=== PATIENT | female | born 1995 | race Caucasian/White ===

== ENCOUNTER 2018-09-19 22:53 | Emergency (ER) | payer OTHER, SELFPAY ==
--- NOTE | 2018-09-19 23:02 | DI.RAD.S_ITS ---
PROCEDURE: XR KNEE LT 3V INDICATIONS: Pt unable to straighten left leg. TECHNIQUE: 3 views of the knee were acquired. COMPARISON: [facility], , KNEE 3V LEFT, 09/27/2016, 12:27. FINDINGS: Bones: There is a smaller lucency along the lateral aspect of the proximal fibula. Soft tissues: Mild joint effusion. No suspicious soft tissue calcifications. IMPRESSION: Small nondisplaced proximal fibular cortical lucency suspicious for fracture. Dictated by: Aubrie Salinas M.D. on 09/20/2018 at 7:56 Approved by: Aubrie Salinas M.D. on 09/20/2018 at 7:57
[2018-09-19 23:04] VITALS: BP 121/91; PULSE 107; RESP 15; TEMP 37.6; O2SAT 98; BMI 49.9
--- NOTE | 2018-09-20 00:41 | ED.LOWEXIN ---
HPI - Extremity Injury (Lower) General Chief Complaint: Extremity Injury, Lower Stated Complaint: LEFT KNEE DISLOCATION Time Seen by Provider: 09/20/18 00:34 Source: patient Mode of arrival: ambulatory Limitations: no limitations History of Present Illness HPI Narrative: This is a 22-year-old female who comes to the emergency with complaint of left knee pain. She was outside playing with her children at about 10 30 or 11 o'clock night she tripped and fell. She landed on the area of her knee felt like there was decreased on the medial side of her knee and that her patella was possibly pushed to the side. Patient states that is uncomfortable for her to completely straighten her leg it is more comfortable to keep it bent. She does not have any numbness or weakness. She was able to straighten for nursing. Patient did have any other injuries. Related Data Previous Rx's Medication Instructions Recorded methocarbamol [Robaxin-750] 750 mg PO QIDP PRN #40 tab 01/14/18 Allergies Allergy/AdvReac Type Severity Reaction Status Date / Time No Known Drug Allergies Allergy Verified 09/19/18 23:04 Review of Systems Constitutional Denies weakness Musculoskeletal Reports as per HPI, Reports abnormal gait, Reports joint swelling, Reports limited range of motion, Denies muscle weakness, Denies numbness and Denies tingling Comments: pain left knee Integumentary/Breasts Denies bleeding lesions and Denies rash Neurologic Reports abnormal gait, Denies numbness, Denies tingling and Denies weakness PFSH Social History Smoking Status: Never smoker Exam Narrative Exam Narrative: GENERAL: Alert and oriented x three, obese, well-appearing female in mild distress. HEENT: Head normocephalic, atraumatic, face symmetric, moist mucous membranes NECK: Supple, full range of motion CARDIOVASCULAR: Regular rate and rhythm without murmurs, rubs or gallops. RESPIRATORY: Breath sounds equal bilaterally, no wheezes rales or rhonchi. ABDOMEN: Soft, nontender. Normoactive bowel sounds all 4 quadrants. No guarding or rebound, rigidity, no mass EXTREMITIES: Decreased range of motion secondary to pain although patient was able to straighten her lower extremity for nursing to place in knee immobilizer. Patient has tenderness over the proximal tibia and fibula and over the fibular head. She also has tenderness of the patella itself. She has no joint laxity on testing. She has mild swelling in comparison to the right. No bruising, no erythema or other skin color changes. 2+ pulses. no clubbing or edema. Neurovascularly intact NEUROLOGICAL: Cranial nerves II through XII grossly intact. Moving all extremities SKIN: Warm, dry, no petechiae, no rashes or lesions. Initial Vital Signs Initial Vital Signs: Vital Signs Temperature 99.7 F H 09/19/18 23:04 Pulse Rate 107 H 09/19/18 23:04 Respiratory Rate 15 09/19/18 23:04 Blood Pressure 121/91 H 09/19/18 23:04 Pulse Oximetry 98 09/19/18 23:04 Course Orders Ordered: ED Orders 09/19/18 23:02 XR knee LT 3V Stat Vital Signs - 8 hr 09/19/18 23:04 09/20/18 01:25 Temperature 99.7 F H 98.7 F Pulse Rate 107 H 100 H Respiratory Rate 15 14 Blood Pressure 121/91 H 120/80 Pulse Oximetry 98 98 MDM - Extremity Injury (Lower) Imaging Data left knee xray: My impression: appears to be possible fx at proximal fibula. No other fracture noted. MDM Narrative Medical decision making narrative: Patient placed in Knee immobilizer and crutches with plan for non-weight bearing and follow up with orthopedic surgery for further evaluation and treatment. Discharge Plan Departure Patient Disposition: Home Clinical Impression: Closed fibular fracture Discharge Date/Time: 09/20/18 01:20 Interventions: ED Discharge Assessment Last Done: 09/20/18 01:25 Instructions: DI for Fracture Activity Restrictions/Additional Instructions: Call Saturday to set up a follow-up appointment with Orthopedic surgery. Your imaging shows possible small fracture of the fibula. Use crutches until your cleared by your physician. You may take ibuprofen and/or tylenol as needed for pain. Splint Care: Keep splint clean and dry. Elevated affected body part to decrease swelling. OK to use ice pack on the affected body part. Use for 15-20 minutes each time, for 5-6x per day. If you develop worsening pain, numbness, tingling, discoloration of the affected body part, loosen the splint by loosening the MAN wrap, and either see your doctor for an urgent re-assessment, or return to the Emergency Department. Return to the Emergency Department for any new or worsening symptoms. Prescriptions: No Action methocarbamol [Robaxin-750] 750 MG tablet 750 mg PO QIDP PRNQty: 40 RF: 0 Referrals: Dennis Anne MD [Primary Care Provider] - Lane Chamorro MD [Physician] -
[2018-09-20 01:25] VITALS: BP 120/80; PULSE 100; RESP 14; TEMP 37.1; O2SAT 98
== END 2018-09-20 01:20 | disposition home or self-care (01) ==
PROVIDERS: Emergency Provider Emergency Medicine; Family Provider Family Medicine; PCP Family Medicine
DX: S82.812A Torus fracture of upper end of left fibula, initial encounter for closed fracture (principal); W01.0XXA Fall on same level from slipping, tripping and stumbling without subsequent striking against object, initial encounter
CPT/HCPCS: 73562; 99282; 99283

== ENCOUNTER 2019-02-16 14:11 | Emergency (ER) | payer OTHER, SELFPAY ==
[2019-02-16 14:25] VITALS: BP 127/88; PULSE 92; RESP 14; TEMP 36.7; O2SAT 98
--- NOTE | 2019-02-16 14:29 | DI.RAD.S_ITS ---
PROCEDURE: XR HAND LT MIN 3V INDICATIONS: crush left thumb, pain radiates into left hand TECHNIQUE: 3 views of the hand(s) acquired. COMPARISON: [facility], , HAND 3V LEFT, 12/20/2014, 12:00. FINDINGS: Bones: No fractures or dislocations. Carpal bones are normally aligned. No suspicious bony lesions. Soft tissues: No suspicious soft tissue calcifications. IMPRESSION: No fracture or dislocation. Dictated by: Dutch Wise M.D. on 02/16/2019 at 15:20 Approved by: Dutch Wise M.D. on 02/16/2019 at 15:26
--- NOTE | 2019-02-16 15:08 | PC.NURSE ---
Pt reports she smashed her thumb while sitting in a office chair when she went to adjust the tilt on it. She can sort of move it but it hurts too much. I had her take her rings off on her same hand related to possible swelling. Pt was able to do that. placed ice on the thumb.
[2019-02-16 16:06] VITALS: BP 138/83; PULSE 89; RESP 18; O2SAT 98
--- NOTE | 2019-02-17 07:07 | ED.UPPEXIN ---
HPI - Extremity Injury (Upper) General Chief Complaint: Extremity Injury, Upper Stated Complaint: CRUSHED LT THUMB Time Seen by Provider: 02/16/19 14:30 Source: patient Mode of arrival: ambulatory Limitations: no limitations History of Present Illness HPI narrative: 23-year-old female nonsmoker with minimal medical history presents with a chief complaint of a left thumb injury earlier today. The patient smashed her thumb in an office chair and now has some pain with minimal swelling. There is no laceration, numbness, tingling. She is otherwise well and free of complaint. MD complaint: injury to: left Onset (ago): hour(s) Other Extremity Injury: Left: fingers Other injuries: none Handedness: right Place: work Severity: mild Severity scale (1-10): 5 Relieving factors: rest Exacerbating factors: movement of extremity Context: direct blow Associated symptoms: denies other symptoms Related Data Home Medications Medication Instructions Recorded Confirmed No Known Home Medications 02/16/19 02/16/19 Allergies Allergy/AdvReac Type Severity Reaction Status Date / Time No Known Drug Allergies Allergy Verified 02/16/19 14:29 Review of Systems Constitutional Denies chills, Denies fever(s), Denies lethargy and Denies weakness Eyes Denies change in vision, Denies eye discharge, Denies irritation and Denies loss of vision ENT Ears, Nose, Mouth, and Throat: Denies change in voice, Denies neck pain and Denies sore throat Cardiovascular Denies chest pain, Denies irregular heart rhythm, Denies lightheadedness, Denies palpitations, Denies dyspnea, Denies dyspnea on exertion and Denies orthopnea Respiratory Denies cough, Denies dyspnea, Denies dyspnea on exertion and Denies wheezing Gastrointestinal Gastrointestinal: Denies abdominal pain, Denies change in bowel habits, Denies diarrhea, Denies nausea and Denies vomiting Genitourinary Denies hematuria, Denies flank pain, Denies urinary incontinence and Denies urinary urgency Musculoskeletal Reports joint swelling, Reports limited range of motion and Denies neck pain Integumentary/Breasts Denies pruritus, Denies erythema, Denies rash and Denies wounds Neurologic Denies confusion, Denies loss of vision and Denies weakness Psychiatric Denies anxiety, Denies confusion, Denies depression, Denies homicidal ideation and Denies suicidal ideation Endocrine Denies palpitations Hematologic/Lymphatic Denies easy bruising Allergic/Immunologic Denies wheezing PFSH Social History Smoking Status: Never smoker Social History Smoking Status: Never smoker Exam Narrative Exam Narrative: GEN: AOx3 and in mild distress EYES: Pupils are equal, round, and reactive to light and accommodation. Extraoccular muscles are intact bilaterally. There is no subconjunctival hemorrhage or exudate. CHEST: Lungs are clear to auscultation bilaterally and free of wheezes, rales, or rhonchi. Heart rate is regular rhythm, there are no murmurs, clicks, rubs, or gallops. There is no chest wall tenderness. ABD: Abdomen is soft and nontender. There is no guarding or rebound. Bowel sounds are normal in all 4 quadrants. There is no mass or organomegaly. EXT: Full, but painful ROM of L thumb. No obvious deformity. No numbness, tingling, or weakness. SKIN: Warm, pink, and dry. No erythema or rash Initial Vital Signs Initial Vital Signs: Vital Signs Temperature 98.1 F 02/16/19 14:25 Pulse Rate 92 H 02/16/19 14:25 Respiratory Rate 14 02/16/19 14:25 Blood Pressure 127/88 02/16/19 14:25 Pulse Oximetry 98 02/16/19 14:25 Procedures Orthopedic Splinting/Casting Injury #1: Side: left Upper Extremity Injury Location: finger Upper Extremity Immobilizer: thumb spica Post splinting neuro exam: intact Post splinting vascular exam: intact Placed by: Nursing MDM - Extremity Injury (Upper) Imaging Data Thumb Xray: Radiologist's impression: [address] [address] XRay Report Signed Patient: Jennifer Booker KMR#: [id number] : 1995Acct:[id number] Age/Sex: 23 / FDate of Service: 02/16/19 Loc: ED Accession Number: [id number] Procedure: XR hand LT min 3V Ordering Provider: Bahman Das D.O. PROCEDURE: XR HAND LT MIN 3V INDICATIONS: crush left thumb, pain radiates into left hand TECHNIQUE: 3 views of the hand(s) acquired. COMPARISON: [facility], , HAND 3V LEFT, 12/20/2014, 12:00. FINDINGS: Bones: No fractures or dislocations. Carpal bones are normally aligned. No suspicious bony lesions. Soft tissues: No suspicious soft tissue calcifications. IMPRESSION: No fracture or dislocation. Dictated by: Dutch Wise M.D. on 02/16/2019 at 15:20 Approved by: Dutch Wise M.D. on 02/16/2019 at 15:26 Discharge Plan Departure Patient Disposition: Home Clinical Impression: Contusion of left thumb Qualifiers: Encounter type: initial encounter Damage to nail status: without damage Qualified Code(s): S60.012A - Contusion of left thumb without damage to nail, initial encounter Discharge Date/Time: 02/16/19 16:08 Interventions: ED Discharge Assessment Last Done: 02/16/19 16:06 Instructions: DI for Contusion Activity Restrictions/Additional Instructions: *You have been diagnosed with [contusion of left thumb ] *What to do: *Take medications as directed *Follow up with your primary care provider in 2-3 days, call for an appointment. Let them know you were seen in the Emergency Department and that we ask that you be seen in follow up *Return to ER if you should have any new, worsening or concerning symptoms Prescriptions: No Action No Known Home Medications RF: 0 Referrals: Dennis Anne MD [Primary Care Provider] -
--- NOTE | 2019-02-17 07:11 | ED_ITS ---
HPI - Extremity Injury (Upper) General Chief Complaint: Extremity Injury, Upper Stated Complaint: CRUSHED LT THUMB Time Seen by Provider: 02/16/19 14:30 Source: patient Mode of arrival: ambulatory Limitations: no limitations History of Present Illness HPI narrative: 23-year-old female nonsmoker with minimal medical history presents with a chief complaint of a left thumb injury earlier today. The patient smashed her thumb in an office chair and now has some pain with minimal swelling. There is no laceration, numbness, tingling. She is otherwise well and free of complaint. MD complaint: injury to: left Onset (ago): hour(s) Other Extremity Injury: Left: fingers Other injuries: none Handedness: right Place: work Severity: mild Severity scale (1-10): 5 Relieving factors: rest Exacerbating factors: movement of extremity Context: direct blow Associated symptoms: denies other symptoms Related Data Home Medications Medication Instructions Recorded Confirmed No Known Home Medications 02/16/19 02/16/19 Allergies Allergy/AdvReac Type Severity Reaction Status Date / Time No Known Drug Allergies Allergy Verified 02/16/19 14:29 Review of Systems Constitutional Denies chills, Denies fever(s), Denies lethargy and Denies weakness Eyes Denies change in vision, Denies eye discharge, Denies irritation and Denies loss of vision ENT Ears, Nose, Mouth, and Throat: Denies change in voice, Denies neck pain and Den ies sore throat Cardiovascular Denies chest pain, Denies irregular heart rhythm, Denies lightheadedness, Denies palpitations, Denies dyspnea, Denies dyspnea on exertion and Denies orthopnea Respiratory Denies cough, Denies dyspnea, Denies dyspnea on exertion and Denies wheezing Gastrointestinal Gastrointestinal: Denies abdominal pain, Denies change in bowel habits, Denies diarrhea, Denies nausea and Denies vomiting Genitourinary Denies hematuria, Denies flank pain, Denies urinary incontinence and Denies urinary urgency Musculoskeletal Reports joint swelling, Reports limited range of motion and Denies neck pain Integumentary/Breasts Denies pruritus, Denies erythema, Denies rash and Denies wounds Neurologic Denies confusion, Denies loss of vision and Denies weakness Psychiatric Denies anxiety, Denies confusion, Denies depression, Denies homicidal ideation and Denies suicidal ideation Endocrine Denies palpitations Hematologic/Lymphatic Denies easy bruising Allergic/Immunologic Denies wheezing PFSH Social History Smoking Status: Never smoker Social History Smoking Status: Never smoker Exam Narrative Exam Narrative: GEN: AOx3 and in mild distress EYES: Pupils are equal, round, and reactive to light and accommodation. Extraoccular muscles are intact bilaterally. There is no subconjunctival hemorrhage or exudate. CHEST: Lungs are clear to auscultation bilaterally and free of wheezes, rales, or rhonchi. Heart rate is regular rhythm, there are no murmurs, clicks, rubs, or gallops. There is no chest wall tenderness. ABD: Abdomen is soft and nontender. There is no guarding or rebound. Bowel soun ds are normal in all 4 quadrants. There is no mass or organomegaly. EXT: Full, but painful ROM of L thumb. No obvious deformity. No numbness, tingling, or weakness. SKIN: Warm, pink, and dry. No erythema or rash Initial Vital Signs Initial Vital Signs: Vital Signs Temperature 98.1 F 02/16/19 14:25 Pulse Rate 92 H 02/16/19 14:25 Respiratory Rate 14 02/16/19 14:25 Blood Pressure 127/88 02/16/19 14:25 Pulse Oximetry 98 02/16/19 14:25 Procedures Orthopedic Splinting/Casting Injury #1: Side: left Upper Extremity Injury Location: finger Upper Extremity Immobilizer: thumb spica Post splinting neuro exam: intact Post splinting vascular exam: intact Placed by: Nursing MDM - Extremity Injury (Upper) Imaging Data Thumb Xray: Radiologist's impression: [address] [address] XRay Report Signed Patient: Jennifer Booker KMR#: [id number] : 1995Acct:[id number] Age/Sex: 23 / FDate of Service: 02/16/19 Loc: ED Accession Number: [id number] Procedure: XR hand LT min 3V Ordering Provider: Bahman Das D.O. PROCEDURE: XR HAND LT MIN 3V INDICATIONS: crush left thumb, pain radiates into left hand TECHNIQUE: 3 views of the hand(s) acquired. COMPARISON: [facility], , HAND 3V LEFT, 12/20/2014, 12:00. FINDINGS: Bones: No fractures or dislocations. Carpal bones are normally aligned. No suspicious bony lesions. Soft tissues: No suspicious soft tissue calcifications. IMPRESSION: No fracture or dislocation. Dictated by: Dutch Wise M.D. on 02/16/2019 at 15:20 Approved by: Dutch Wise M.D. on 02/16/2019 at 15:26 Discharge Plan Departure Patient Disposition: Home Clinical Impression: Contusion of left thumb Qualifiers: Encounter type: initial encounter Damage to nail status: without damage Qualified Code(s): S60.012A - Contusion of left thumb without damage to nail, initial encounter Discharge Date/Time: 02/16/19 16:08 Interventions: ED Discharge Assessment Last Done: 02/16/19 16:06 Instructions: DI for Contusion Activity Restrictions/Additional Instructions: *You have been diagnosed with [contusion of left thumb ] *What to do: *Take medications as directed *Follow up with your primary care provider in 2-3 days, call for an appointment. Let them know you were seen in the Emergency Department and that we ask that you be seen in follow up *Return to ER if you should have any new, worsening or concerning symptoms Prescriptions: No Action No Known Home Medications RF: 0 Referrals: Dennis Anne MD [Primary Care Provider] -
== END 2019-02-16 16:08 | disposition home or self-care (01) ==
PROVIDERS: Emergency Provider Emergency Medicine; Family Provider Family Medicine; PCP Family Medicine
DX: S60.012A Contusion of left thumb without damage to nail, initial encounter (principal); W23.0XXA Caught, crushed, jammed, or pinched between moving objects, initial encounter
CPT/HCPCS: 73130; 99282; 99283

== ENCOUNTER 2019-09-09 21:00 | Emergency (ER) | payer OTHER, SELFPAY ==
[2019-09-09 21:05] VITALS: BP 125/74; PULSE 100; RESP 14; TEMP 36.4; O2SAT 99; BMI 47.9
--- NOTE | 2019-09-09 21:09 | DI.RAD.S_ITS ---
PROCEDURE: XR ANKLE LT MIN 3V INDICATIONS: left ankle injury TECHNIQUE: 3 views of the ankle were acquired. COMPARISON: None. FINDINGS: Bones: No fractures or dislocations. Ankle mortise is normally aligned. No suspicious bony lesions. Soft tissues: No tibiotalar joint effusion. Achilles tendon appears normal. IMPRESSION: No acute fracture. No osseous lesion. If clinical suspicion and/or symptoms persist, further assessment with repeat plainfilms, or advanced imaging (e.g., CT, MRI, or bone scan) may be helpful for further assessment. Dictated by: Zulay Nye M.D. on 09/09/2019 at 21:35 Approved by: Zulay Nye M.D. on 09/09/2019 at 21:35
--- NOTE | 2019-09-09 23:34 | ED.LOWEXIN ---
HPI - Extremity Injury (Lower) General Chief Complaint: Extremity Injury, Lower Stated Complaint: LEFT ANKLE INJURY Time Seen by Provider: 09/09/19 23:33 Source: patient Mode of arrival: Ambulatory Limitations: no limitations History of Present Illness HPI Narrative: 23-year-old female comes to the emergency department with complaint of left ankle injury. Patient states she was at the pool about 830 this evening she was jumping to dive off a diving board and the diving board with set a little bit differently and so her ankle rolled. She describes what sounds like eversion of her ankle. She has pain sort of in the back and along the lateral side of the ankle and around. She states it was worse initially. She had tingling that lasted for short period of time and has resolved. She denies any weakness. She is able to walk but it is uncomfortable. Patient denies any bruising. She states seems a little bit more swollen on the inside to her. She denies any other past medical issues. No allergies to medications. Related Data Home Medications Medication Instructions Recorded Confirmed No Known Home Medications 02/16/19 02/16/19 Allergies Allergy/AdvReac Type Severity Reaction Status Date / Time No Known Drug Allergies Allergy Verified 09/09/19 21:09 Review of Systems Review of Systems ROS Unobtainable: All systems reviewed & are unremarkable except as noted in HPI and below Musculoskeletal Musculoskeletal: Reports as per HPI, Reports abnormal gait, Denies deformity, Reports arthralgias, Reports joint swelling, Reports limited range of motion, Denies muscle weakness, Denies numbness, Reports stiffness and Reports tingling (Resolved) Integumentary/Breasts Skin/Breast: Denies erythema, Denies rash and Denies unusual bruising Neurologic Neurologic: Reports abnormal gait, Denies focal weakness, Denies numbness, Denies sensory deficit and Reports tingling (Resolved) [facility] Social History Smoking Status: Never smoker Social History Smoking Status: Never smoker Exam Narrative Exam Narrative: GENERAL: Alert and oriented x three, obese female in mild distress. HEENT: Head normocephalic, atraumatic, EOMI, pupils reactive, face symmetric, moist mucous membranes NECK: Supple, full range of motion EXTREMITIES: Normal range of motion, no clubbing or edema appreciated. Patient has mild tenderness of the lateral malleolus. She does not have any swelling appreciable to myself. No ecchymosis. Neurovascularly intact. dorsalis pedis is 2+ bilateral lower extremities are warm. On joint testing a patient does not have any laxity. She has some mild tenderness the Achilles tendon as well as over the lateral tendons. No weakness. 5/5 muscle flank with dorsiflexion and plantar flexion. When taken through passive dorsiflexion and plantar flexion she has increased discomfort over the anterior ankle. NEUROLOGICAL: Cranial nerves II through XII grossly intact. Moving all extremities SKIN: Warm, dry, no petechiae, no rashes or lesions. Initial Vital Signs Initial Vital Signs: Vital Signs Temperature 97.6 F 09/09/19 21:05 Pulse Rate 100 H 09/09/19 21:05 Respiratory Rate 14 09/09/19 21:05 Blood Pressure 125/74 09/09/19 21:05 Pulse Oximetry 99 09/09/19 21:05 Course Orders Ordered: ED Orders 09/09/19 21:09 XR ankle LT min 3V Stat Vital Signs Vital signs: Vital Signs - 8 hr 09/09/19 21:05 Temperature 97.6 F Pulse Rate 100 H Respiratory Rate 14 Blood Pressure 125/74 Pulse Oximetry 99 MDM - Extremity Injury (Lower) Imaging Data left ankle xray: Radiologist's impression: [address] [address] XRay Report Signed Patient: Jennifer Booker KMR#: [id number] : 1995Acct:[id number] Age/Sex: 23 / FDate of Service: 09/09/19 Loc: ED Accession Number: [id number] Procedure: XR ankle LT min 3V Ordering Provider: Hemalatha Lake D.O. PROCEDURE: XR ANKLE LT MIN 3V INDICATIONS: left ankle injury TECHNIQUE: 3 views of the ankle were acquired. COMPARISON: None. FINDINGS: Bones: No fractures or dislocations. Ankle mortise is normally aligned. No suspicious bony lesions. Soft tissues: No tibiotalar joint effusion. Achilles tendon appears normal. IMPRESSION: No acute fracture. No osseous lesion. If clinical suspicion and/or symptoms persist, further assessment with repeat plainfilms, or advanced imaging (e.g., CT, MRI, or bone scan) may be helpful for further assessment. Dictated by: Zulay Nye M.D. on 09/09/2019 at 21:35 Approved by: Zulay Nye M.D. on 09/09/2019 at 21:35 [facility] Narrative Medical decision making narrative: Discussed with patient suspect ankle sprain. She may possibly have a sprain or strain of her Achilles tendon. She does not seem to have a tear on exam. Patient's tendon seems to be fully intact and she has no weakness. She has only very mildly tender. Plan for walking boot and patient to follow up if she is completely asymptomatic she can stop it if she continues to have symptoms she needs to follow up for evaluation. We discussed to avoid activities that cause injury to the tendon is there is some suspicion for possible injury. Patient is comfortable with the plan and expresses understanding. Discharge Plan Departure Patient Disposition: Home Clinical Impression: Left ankle sprain Discharge Date/Time: 09/10/19 00:06 Instructions: DI for Ankle Sprain Activity Restrictions/Additional Instructions: Follow-up with primary care in the next 7-10 days if your symptoms have not resolved or few continuing to have pain in your Achilles tendon. You may take ibuprofen up to 800 mg every 8 hours as needed for pain, you may also take up to a 1000 mg every 8 hours as needed for pain.\ If your totally asymptomatic you may stop using the walking boot. If he continued to have symptoms continue using the boot. I would avoid strenuous physical activity activities the force your foot into a dorsiflexion (push your toes towards your mohan) Splint Care: Keep splint clean and dry. Elevated affected body part to decrease swelling. OK to use ice pack on the affected body part. Use for 15-20 minutes each time, for 5-6x per day. If you develop worsening pain, numbness, tingling, discoloration of the affected body part, loosen the splint by loosening the MAN wrap, and either see your doctor for an urgent re-assessment, or return to the Emergency Department. Return to the Emergency Department for any new or worsening symptoms. Prescriptions: No Action No Known Home Medications RF: 0
== END 2019-09-10 00:06 | disposition home or self-care (01) ==
PROVIDERS: Emergency Provider Emergency Medicine
DX: S93.402A Sprain of unspecified ligament of left ankle, initial encounter (principal); Y93.12 Activity, springboard and platform diving
CPT/HCPCS: 29580; 73610; 99282; 99283

== ENCOUNTER 2020-01-30 11:11 | Emergency (ER) | payer OTHER, SELFPAY ==
--- NOTE | 2020-01-30 11:20 | DI.RAD.S_ITS ---
PROCEDURE: XR HAND RT MIN 3V INDICATIONS: pain status post fall TECHNIQUE: 3 views of the hand(s) acquired. COMPARISON: [facility], CR, XR WRIST RT MIN 3V, 01/30/2020, 12:07. [facility], CR, XR HAND LT MIN 3V, 02/16/2019, 14:36. FINDINGS: Bones: No fractures or dislocations. Carpal bones are normally aligned. No suspicious bony lesions. Soft tissues: No suspicious soft tissue calcifications. IMPRESSION: 1. No fracture or dislocation. Dictated by: Lane Min M.D. on 01/30/2020 at 11:37 Approved by: Lane Min M.D. on 01/30/2020 at 11:38
--- NOTE | 2020-01-30 11:20 | DI.RAD.S_ITS ---
PROCEDURE: XR WRIST RT MIN 3V INDICATIONS: pain status post fall TECHNIQUE: 4 views of the wrist were acquired. COMPARISON: [facility], , WRIST MINIMUM 3 VIEWS RIGHT, 04/23/2016, 16:12. FINDINGS: Bones: No fractures or dislocations. No suspicious bony lesions. Scaphoid view: The scaphoid appears intact. Soft tissues: No suspicious soft tissue calcifications. IMPRESSION: 1. No fracture or dislocation. Dictated by: Lane Min M.D. on 01/30/2020 at 11:34 Approved by: Lane Min M.D. on 01/30/2020 at 11:37
[2020-01-30 11:21] VITALS: BP 129/84; PULSE 72; RESP 16; TEMP 36.2; O2SAT 99; BMI 47.9
--- NOTE | 2020-01-30 11:25 | ED_ITS ---
HPI - Extremity Injury (Upper) <LUIS Hickey - Last Filed: 01/30/20 13:40> General Chief Complaint: Extremity Injury, Upper Stated Complaint: right hand pain Time Seen by Provider: 01/30/20 11:16 Source: patient Mode of arrival: Ambulatory Limitations: no limitations History of Present Illness HPI narrative: The patient is a 24-year-old female nonsmoker presenting with and for chief complaint of right hand and wrist pain after a fall last night. She had a FOOSH injury while playing basketball. She states she has history of bilateral arm fractures. She states she can't move her hands and her wrists, though it is painful. She has tried ibuprofen, as well as ice. She is concerned about fracture. Related Data Home Medications Medication Instructions Recorded Confirmed No Known Home Medications 02/16/19 02/16/19 Allergies Allergy/AdvReac Type Severity Reaction Status Date / Time No Known Drug Allergies Allergy Verified 09/09/19 21:09 Review of Systems <LUIS Hickey - Last Filed: 01/30/20 13:40> Review of Systems Narrative: GENERAL: Denies chills, fatigue, malaise, fever, sweats. HEENT: Denies sinus pain, ear pain, sore throat, difficulty swallowing, dizziness. RESPIRATORY: Denies dyspnea, cough, wheezing, hemoptysis, sputum. CARDIOVASCULAR: Denies chest pain, palpitations, orthopnea, edema, GASTROINTESTINAL: Denies nausea, vomiting, abdominal pain, diarrhea, constipation, melena. : Denies dysuria, frequency, incontinence, hematuria, urinary retention. MUSCULOSKELETAL: See HPI SKIN: Denies rash, skin lesions, or other NEUROLOGIC: Denies weakness, headache, numbness, change in speech, confusion, seizures, incoordination. PSYCHIATRIC: No concerning psychosocial issues. 12 point review of systems is negative except for those stated above Patient History <LUIS Hickey - Last Filed: 01/30/20 13:40> Social History Smoking Status: Never smoker Smoking Status: Never smoker alcohol intake frequency: 0-2 drinks per day Substance Use Type: does not use Exam <LUIS Hickey - Last Filed: 01/30/20 13:40> Narrative Exam Narrative: GENERAL: Obese female no acute distress HEAD: Atraumatic. Normocephalic. No temporal or scalp tenderness. EYES: Pupils equal round and reactive. Extraocular motions intact. No scleral icterus. No injection or drainage. ENT: Nose without bleeding, purulent drainage or septal hematoma. Throat without erythema, tonsillar hypertrophy or exudate. Uvula midline. Airway patent. NECK: Trachea midline. No JVD or lymphadenopathy. Supple, nontender, no meningeal signs. CARDIOVASCULAR: Regular rate and rhythm RESPIRATORY: No cough. No increased respiratory effort. No accessory muscle use. EXTREMITIES: General pain to palpation right wrist and hand. No snuffbox pain to palpation. Cap refill less than 2 fingers all fingers right hand. Pain to palpation right thumb. Positive radial pulse right pain. Able to pronate and supinate right hand. BACK: Nontender without deformity or crepitance. No flank tenderness. NEURO: AOx3. SKIN: No rash or erythema on visible skin Initial Vital Signs Initial Vital Signs: Vital Signs Temperature 97.2 F L 01/30/20 11:21 Pulse Rate 72 01/30/20 11:21 Respiratory Rate 16 01/30/20 11:21 Blood Pressure 129/84 01/30/20 11:21 Pulse Oximetry 99 01/30/20 11:21 <Bahman Das DO - Last Filed: 01/30/20 18:45> Initial Vital Signs Initial Vital Signs: Vital Signs Temperature 97.2 F L 01/30/20 11:21 Pulse Rate 72 01/30/20 11:21 Respiratory Rate 16 01/30/20 11:21 Blood Pressure 129/84 01/30/20 11:21 Pulse Oximetry 99 01/30/20 11:21 Procedures <LUIS Hickey - Last Filed: 01/30/20 13:40> Orthopedic Splinting/Casting Injury #1: Side: right Upper Extremity Injury Location: wrist Upper Extremity Immobilizer: wrist splint Post splinting neuro exam: intact Post splinting vascular exam: intact Placed by: Nursing Scores <LUIS Hickey - Last Filed: 01/30/20 13:40> GCS Edwin coma scale eye opening: Spontaneous Edwin coma scale verbal response: Orientated [place] coma scale motor response: Obey commands Edwin coma scale total score: 15 Course <LUIS Hickey - Last Filed: 01/30/20 13:40> Orders Ordered: ED Orders 01/30/20 11:20 XR hand RT min 3V Stat XR wrist RT min 3V Stat Discontinued Medications Ibuprofen (Advil) 800 mg PO NOW ONE Stop: 01/30/20 11:51 Last Admin: 01/30/20 11:54 Dose: 800 mg Documented by: MELISSA Vital Signs Vital signs: Vital Signs - 8 hr 01/30/20 11:21 01/30/20 13:13 Temperature 97.2 F L Pulse Rate 72 68 Respiratory Rate 16 16 Blood Pressure 129/84 Blood Pressure [Left Arm] 125/64 Pulse Oximetry 99 99 <Bahman Das DO - Last Filed: 01/30/20 18:45> Orders Ordered: ED Orders 01/30/20 11:20 XR hand RT min 3V Stat XR wrist RT min 3V Stat Discontinued Medications Ibuprofen (Advil) 800 mg PO NOW ONE Stop: 01/30/20 11:51 Last Admin: 01/30/20 11:54 Dose: 800 mg Documented by: MELISSA Vital Signs Vital signs: Vital Signs - 8 hr 01/30/20 11:21 01/30/20 13:13 Temperature 97.2 F L Pulse Rate 72 68 Respiratory Rate 16 16 Blood Pressure 129/84 Blood Pressure [Left Arm] 125/64 Pulse Oximetry 99 99 MDM - Extremity Injury (Upper) <LUIS Hickey - Last Filed: 01/30/20 13:40> Imaging Data Extremity x-ray #1: Radiologist's Impression: [address] [place] [id number] XRay Report Signed Patient: Jennifer Booker KMR#: [id number] : 1995Acct:[id number] Age/Sex: 24 / FDate of Service: 01/30/20 Loc: ED Accession Number: [id number] Procedure: XR wrist RT min 3V Ordering Provider: Hemalatha Leonard PROCEDURE: XR WRIST RT MIN 3V INDICATIONS: pain status post fall TECHNIQUE: 4 views of the wrist were acquired. COMPARISON: [facility] WRIST MINIMUM 3 VIEWS RIGHT, 04/23/2016, 16:12. FINDINGS: Bones: No fractures or dislocations. No suspicious bony lesions. Scaphoid view: The scaphoid appears intact. Soft tissues: No suspicious soft tissue calcifications. IMPRESSION: 1. No fracture or dislocation. Dictated by: Lane Min M.D. on 01/30/2020 at 11:34 Approved by: Lane Min M.D. on 01/30/2020 at 11:37 Extremity x-ray #2: Radiologist's Impression: [address] [place] [address] XRay Report Signed Patient: Jennifer Booker KMR#: [id number] : 1995Acct:[id number] Age/Sex: 24 / FDate of Service: 01/30/20 Loc: ED Accession Number: [id number] Procedure: XR hand RT min 3V Ordering Provider: Hemalatha Leonard PROCEDURE: XR HAND RT MIN 3V INDICATIONS: pain status post fall TECHNIQUE: 3 views of the hand(s) acquired. COMPARISON: [facility], CR, XR WRIST RT MIN 3V, 01/30/2020, 12:07. [facility], CR, XR HAND LT MIN 3V, 02/16/2019, 14:36. FINDINGS: Bones: No fractures or dislocations. Carpal bones are normally aligned. No suspicious bony lesions. Soft tissues: No suspicious soft tissue calcifications. IMPRESSION: 1. No fracture or dislocation. Dictated by: Lane Min M.D. on 01/30/2020 at 11:37 Approved by: Lane Min M.D. on 01/30/2020 at 11:38 [facility] Narrative Medical decision making narrative: The patient is a 24-year-old female who presents with a chief complaint of right hand and wrist pain after a fall. Patient is neurovascularly intact in the emergency department. X-rays are negative. She is placed in a support brace for comfort. I discussed at length rest ice compression elevation as well as [id number] pain medication as needed and able. Discussed come back to the emergency department for any acute concerns. Encourage PCP follow-up in the next few days. Patient is at risk for UCL ligament sprain given her exam and mechanism of injury. Patient has no questions or concerns upon discharge and states understanding of return precautions as well as follow-up care. Discharge Plan Departure Patient Disposition: Home Clinical Impression: Sprain and strain of wrist, Hand pain, right, Fall from ground level Sprain of ulnar collateral ligament of metacarpophalangeal (MCP) joint of right thumb Qualifiers: Encounter type: initial encounter Qualified Code(s): S63.641A - Sprain of metacarpophalangeal joint of right thumb, initial encounter Discharge Date/Time: 01/30/20 13:33 Instructions: DI for Wrist Sprain, How To Perform RICE (Rest, Ice, Compress, Elevate), DI for Ulnar Collateral Ligament Sprain of Thumb, DI for Hand Pain Activity Restrictions/Additional Instructions: As I discussed, your x-ray shows no acute fracture. This does not rule out a soft tissue injury such as a ligament or tendon injury. It is important that you follow up with primary care provider, especially if worsening or no improvement. There can be fractures that did not show up on initial x-ray. Please follow-up with primary care provider in the next few days. Please use rest ice compression elevation as well as [id number] pain medications as needed and able. Prescriptions: No Action No Known Home Medications RF: 0
[2020-01-30] MEDS: IBUPROFEN 400 MG TABLET 800 MG PO (11:54)
[2020-01-30 13:13] VITALS: BP 125/64; PULSE 68; RESP 16; O2SAT 99
== END 2020-01-30 13:33 | disposition home or self-care (01) ==
PROVIDERS: Emergency Provider Nurse Practitioner Family
DX: S63.501A Unspecified sprain of right wrist, initial encounter (principal); S66.911A Strain of unspecified muscle, fascia and tendon at wrist and hand level, right hand, initial encounter; S63.641A Sprain of metacarpophalangeal joint of right thumb, initial encounter; W18.30XA Fall on same level, unspecified, initial encounter
CPT/HCPCS: 73110; 73130; 99283; 99284

== ENCOUNTER → 2020-08-17 15:02 | Outpatient (CLI) | payer OTHER, SELFPAY ==
--- NOTE | 2020-08-17 15:05 | DI.RAD.S_ITS ---
PROCEDURE: XR ANKLE RT MIN 3V INDICATIONS: MODERATE RIGHT ANKLE SPRAIN, CONTUSION LEFT KNEE TECHNIQUE: 3 views of the ankle were acquired. COMPARISON: [facility], [place], XR ANKLE LT MIN 3V, 09/09/2019, 21:12. [facility], [place], ANKLE 3 VIEWS RIGHT, 01/20/2016, 19:42. FINDINGS: Bones: No fractures or dislocations. Ankle mortise is normally aligned. No suspicious bony lesions. Soft tissues: No tibiotalar joint effusion. Achilles tendon appears normal. IMPRESSION: No fracture or subluxation seen. Dictated by: Gregory Ruiz M.D. on 08/17/2020 at 15:45 Approved by: Gregory Ruiz M.D. on 08/17/2020 at 15:46
--- NOTE | 2020-08-17 15:05 | DI.RAD.S_ITS ---
PROCEDURE: XR KNEE LT 3V INDICATIONS: MODERATE RIGHT ANKLE SPRAIN, CONTUSION LEFT KNEE TECHNIQUE: 3 views of the knee were acquired. COMPARISON: [facility], [place], XR KNEE LT 3V, 09/19/2018, 22:45. [facility], [place], KNEE 1-2 VIEWS RIGHT, 03/03/2017, 21:24. FINDINGS: Bones: No fractures or dislocations. No suspicious bony lesions. Soft tissues: No joint effusion. No suspicious soft tissue calcifications. IMPRESSION: Normal for age, source of current pain after trauma symptoms is not seen. Dictated by: rGegory Ruiz M.D. on 08/17/2020 at 15:46 Approved by: Gregory Ruiz M.D. on 08/17/2020 at 15:46
== END ==
PROVIDERS: Referring Provider Family Medicine; Visit Provider Family Medicine
DX: S80.02XA Contusion of left knee, initial encounter (principal); S93.401A Sprain of unspecified ligament of right ankle, initial encounter; X58.XXXA Exposure to other specified factors, initial encounter
CPT/HCPCS: 73562; 73610

== ENCOUNTER → 2021-02-01 12:34 | Outpatient (CLI) | payer MEDICAID, OTHER, SELFPAY ==
--- NOTE | 2021-02-01 12:39 | DI.US.S_ITS ---
PROCEDURE: US PELVIC COMPLETE INDICATIONS: Excessive and frequent menstruation TECHNIQUE: Real-time scanning was performed of the pelvic organs, with image documentation. Additional endovaginal scanning was necessary due to incomplete visualization of the adnexal and endometrial structures by transabdominal scanning. COMPARISON: None. FINDINGS: Uterus: Uterus is normal in size at 3.9 x 5.3 x 7.7 cm. The endometrium measures 4.2 mm in combined thickness. Ovaries: The right ovary measures 3.2 x 1.8 x 2.4 cm and the left measures 4.7 x 2.9 x 3.8 cm. There is a 3 x 2.4 x 2.4 cm left-sided follicular cyst. Other: No pathologic free abdominal or pelvic fluid. IMPRESSION: Normal size uterus, no fibroids seen. Normal endometrial lining thickness, note is made of a follicular cysts with average diameter less than 3 cm at the left ovary Dictated by: Gregory Ruiz M.D. on 02/01/2021 at 14:06 Approved by: Gregory Ruiz M.D. on 02/01/2021 at 14:08
== END ==
PROVIDERS: Referring Provider Family Medicine; Visit Provider Family Medicine
DX: N92.0 Excessive and frequent menstruation with regular cycle (principal); N83.02 Follicular cyst of left ovary
CPT/HCPCS: 76830; 76856

== ENCOUNTER 2021-06-12 18:51 | Emergency (ER) | payer MEDICAID, OTHER, SELFPAY ==
[2021-06-12 18:56] VITALS: BP 142/77; PULSE 89; RESP 20; TEMP 37; O2SAT 99
[2021-06-12] MEDS: DOXYCYCLINE HYCLATE 100 MG TABLET PO (21:05)
[2021-06-12 21:08] VITALS: BP 138/75; PULSE 68; RESP 20; O2SAT 99
[2021-06-12 22:15] LABS: Urine N gonorrhoeae NOT DETECTED
[2021-06-12 22:18] LABS: Urine Chlamydia DETECTED
--- NOTE | 2021-06-12 23:12 | ED.FEMALEGU ---
HPI - Female Genitourinary General Chief complaint: Urogenital-Female Stated complaint: TEST FOR CLAMYDIA Time Seen by Provider: 06/12/21 20:03 Source: patient Mode of arrival: Ambulatory History of Present Illness HPI Narrative: 25-year- nonsmoker with noncontributory medical history presents suggesting she had been contacted by sexual partner who had recently tested positive for chlamydia. She denies any fever or chills nor dysuria, frequency or urgency. She denies any vaginal bleeding, discharge or leakage of fluid. She states her last sexual encounter was a few weeks ago and she has had no other partners. She denies any abdominal, pelvic or back pain. Related Data Previous Rx's Medication Instructions Recorded doxycycline hyclate 100 mg tablet 100 mg PO BID #20 tab 06/12/21 Allergies Allergy/AdvReac Type Severity Reaction Status Date / Time No Known Drug Allergies Allergy Verified 09/09/19 21:09 Review of Systems Review of Systems Narrative: GENERAL: Denies chills, fatigue, malaise, fever, sweats. HEENT: Denies sinus pain, ear pain, sore throat, difficulty swallowing, dizziness. RESPIRATORY: Denies dyspnea, cough, wheezing, hemoptysis, sputum. CARDIOVASCULAR: Denies chest pain, palpitations, orthopnea, edema, GASTROINTESTINAL: Denies nausea, vomiting, abdominal pain, diarrhea, constipation, melena. : Denies dysuria, frequency, incontinence, hematuria, urinary retention. MUSCULOSKELETAL: denies weakness, joint pain, or bony pain SKIN: Denies rash, skin lesions, or other NEUROLOGIC: Denies weakness, headache, numbness, change in speech, confusion, seizures, incoordination. PSYCHIATRIC: No concerning psychosocial issues. 12 point review of systems is negative except for those stated above Patient History alcohol intake frequency: 0-2 drinks per day Substance Use Type: does not use Exam Narrative Exam Narrative: GEN: AOx3 and in mild distress EYES: Pupils are equal, round, and reactive to light and accommodation. Extraoccular muscles are intact bilaterally. There is no subconjunctival hemorrhage or exudate. CHEST: Lungs are clear to auscultation bilaterally and free of wheezes, rales, or rhonchi. Heart rate is regular rhythm, there are no murmurs, clicks, rubs, or gallops. There is no chest wall tenderness. ABD: Abdomen is soft and nontender. There is no guarding or rebound. Bowel sounds are normal in all 4 quadrants. There is no mass or organomegaly. EXT: Full painless ROM of all extremities with no loss of sensation or strength. SKIN: Warm, pink, and dry. No erythema or rash Initial Vital Signs Initial Vital Signs: Vital Signs Temperature 98.6 F 06/12/21 18:56 Pulse Rate 89 06/12/21 18:56 Respiratory Rate 20 06/12/21 18:56 Blood Pressure 142/77 H 06/12/21 18:56 Pulse Oximetry 99 06/12/21 18:56 Course Orders Ordered: ED Orders 06/12/21 20:37 Chlamydia Gonorrhea PCR -URINE Stat Discontinued Medications Doxycycline Hyclate (Doxycycline Hyclate 100 Mg Tablet) 100 mg PO NOW ONE Stop: 06/12/21 21:02 Last Admin: 06/12/21 21:05 Dose: 100 mg Documented by: SUZI Vital Signs Vital signs: Vital Signs - 8 hr 06/12/21 21:08 Pulse Rate 68 Respiratory Rate 20 Blood Pressure 138/75 Pulse Oximetry 99 MDM - Female Genitourinary Lab Data Labs: Lab Results 06/12/21 Range/Units 20:37 Ur Chlamydia DNA (PCR) Detected H N gonorrhoeae DNA (PCR) Not detected Point of Care Testing Test Results Negative Urine Dip Bedside Urine Glucose Negative Bedside Urine Bilirubin - Negative Bedside Urine Ketone - Negative Urine Specific Pender 1.025 Bedside Urine Occult Blood - Negative Bedside Urine pH 6 Bedside Urine Protein - Negative Bedside Urine Urobilinogen - Negative Bedside Urine Nitrite - Negative Bedside Urine Leukocytes ++ 125 Esterase Discharge Plan Departure Patient Disposition: Home Clinical Impression: Exposure to chlamydia Instructions: DI for Chlamydia Activity Restrictions/Additional Instructions: *You have been diagnosed with [chlamydia exposure] *What to do: *Please continue to take your regular medications as directed. [ ] New medication prescriptions sent to your pharmacy: [ ] [ x] New medication written as a paper prescription [ ] No new medications given * avoid sexual contact for 3 weeks. Inform any sexual partners of your exposure *Please follow up with your primary care provider in 2-3 days, call for an appointment. Let them know you were seen in the Emergency Department and that we ask that you be seen in follow up. We will electronically transmit a record of today's note if your PCP is in our system *If you do not have a primary care provider please contact the [facility] Resource line at [phone]. They will ask some questions about your medical history and help get you set up with a doctor in the community. *Return to Emergency Department if you should have any new, worsening or concerning symptoms, such as [fever greater than 101 F, shaking chills, worsening pain, persistent vomiting or other bothersome symptoms] Prescriptions: New doxycycline hyclate 100 mg tablet 100 mg PO BID Qty: 20 RF: 0
== END 2021-06-12 21:08 | disposition home or self-care (01) ==
PROVIDERS: Emergency Provider Emergency Medicine
DX: A74.9 Chlamydial infection, unspecified (principal); Z20.2 Contact with and (suspected) exposure to infections with a predominantly sexual mode of transmission
CPT/HCPCS: 81003; 81025; 87491; 87591; 99283

== ENCOUNTER 2021-07-03 16:31 | Emergency (ER) | payer MEDICAID, OTHER, SELFPAY ==
[2021-07-03 16:37] VITALS: BP 139/80; PULSE 92; RESP 16; TEMP 36.4; O2SAT 97; BMI 50.1
[2021-07-03 18:38] LABS: INR 1.1 (0.9-1.3); Prothrombin Time 12.6 SECONDS (10.1-12.7)
[2021-07-03 18:39] LABS: Add Manual Diff / Slide Review NO; Basophils Absolute Auto 100 /uL (0-100); Eosinophils Absolute Auto 200 /uL (0-450); Eosinophils Percent Auto 2.1 % (2-4); Hematocrit 36.5 % (36-46); Lymphocytes Absolute Auto 3600 /uL (1100-4500); Lymphocytes Percent Auto 34.4 % (25-40); Mean Corpuscular HGB Conc 32.9 % (30-36); Mean Corpuscular Hemoglobin 26.5 PG (26-34); Mean Corpuscular Volume 80.5 fL (80-100); Monocytes Absolute Auto 600 /uL (0-900); Neutrophils Absolute Auto 6000 /uL (1500-7000); Neutrophils Percent Auto 56.5 % (50-75); Platelet Count 361 X10^3/uL (150-400); Red Blood Cell Count 4.53 X10^6/uL (4.0-5.2); Red Cell Distribution Width 13.4 % (11.6-14.8); White Blood Cell Count 10.6 X10^3/uL (4.5-11.0)
[2021-07-03 18:43] LABS: Alanine Aminotransferase 37 IU/L (<35); Albumin 4.1 g/dL (3.5-5.0); Albumin Globulin Ratio 1.3 (1.0-2.8); Alkaline Phosphatase 52 U/L (38-126); Aspartate Aminotransferase 31 IU/L (14-36); BUN Creatinine Ratio 14.3 (6-22); Bilirubin Total 0.2 mg/dL (0.2-1.3); Blood Urea Nitrogen 11 mg/dL (7-17); Calcium 9.2 mg/dL (8.4-10.2); Carbon Dioxide 25 mmol/L (22-32); Chloride 106 mmol/L (98-107); Estimated Glomerular Filt Rate > 60.0 mL/min (>60); Globulin 3.2 g/dL (1.7-4.1); Glucose 127 mg/dL (70-100); HEMOLYSIS < 15 (0-50); Potassium 3.7 mmol/L (3.4-5.1); Sodium 141 mmol/L (137-145); Total Protein 7.3 g/dL (6.3-8.2)
--- NOTE | 2021-07-03 18:49 | ED_ITS ---
HPI - Abdominal Pain General Chief Complaint: Abdominal Pain Stated Complaint: POOPING BLOOD Time Seen by Provider: 07/03/21 18:04 Source: patient Mode of arrival: Ambulatory History of Present Illness HPI narrative: 25-year-old female nonsmoker with history of GI symptoms presents with some bright red blood on the toilet paper and in the toilet water with a bowel movement today. She denies any dizziness, weakness or lightheadedness. S he denies any dietary change. She has had no fever or chills. She denies any history of GI bleeding, constipation, hemorrhoids though that he run in the family. She is not dizzy nor weak or lightheaded. Related Data Previous Rx's Medication Instructions Recorded doxycycline hyclate 100 mg tablet 100 mg PO BID #20 tab 06/12/21 Allergies Allergy/AdvReac Type Severity Reaction Status Date / Time No Known Drug Allergies Allergy Verified 07/03/21 16:45 Review of Systems Review of Systems Narrative: GENERAL: Denies chills, fatigue, malaise, fever, sweats. HEENT: Denies sinus pain, ear pain, sore throat, difficulty swallowing, dizziness. RESPIRATORY: Denies dyspnea, cough, wheezing, hemoptysis, sputum. CARDIOVASCULAR: Denies chest pain, palpitations, orthopnea, edema, GASTROINTESTINAL: See HPI : Denies dysuria, frequency, incontinence, hematuria, urinary retention. MUSCULOSKELETAL: denies weakness, joint pain, or bony pain SKIN: Denies rash, skin lesions, or other NEUROLOGIC: Denies weakness, headache, numbness, change in speech, confusion, seizures, incoordination. PSYCHIATRIC: No concerning psychosocial issues. 12 point review of systems is negative except for those stated above Patient History Social History Smoking Status: Never smoker Smoking Status: Never smoker alcohol intake frequency: 0-2 drinks per day Substance Use Type: marijuana Exam Narrative Exam Narrative: GENERAL: [25] year old patient appears stated age. Well- developed patient, in mild distress. HEAD: Atraumatic. Normocephalic. EYES: Pupils equal round and reactive. Extraocular motions intact. No scleral icterus. No injection or drainage. ENT: Nose without bleeding, purulent drainage. Throat without erythema, tonsillar hypertrophy or exudate. Airway patent. NECK: Trachea midline. Non tender CARDIOVASCULAR: Regular rate and rhythm without murmurs, gallops, or rubs. RESPIRATORY: Clear to auscultation. Breath sounds equal bilaterally. No wheezes, rales, or rhonchi. GASTROINTESTINAL: Abdomen soft, non-tender, nondistended. RECTAL: Heme-positive exam, no fissure, hemorrhoid or gross bleeding noted. This was performed with patient's permission and a female nursing security assessor at the bedside EXTREMITIES: No edema or joint tenderness. BACK: Nontender without deformity or crepitance. No flank tenderness. NEURO: AOx3. SKIN: No rash or erythema of visible areas Initial Vital Signs Initial Vital Signs: Vital Signs Temperature 97.6 F 07/03/21 16:37 Pulse Rate 92 H 07/03/21 16:37 Respiratory Rate 16 07/03/21 16:37 Blood Pressure 139/80 07/03/21 16:37 Pulse Oximetry 97 07/03/21 16:37 Course Orders Ordered: ED Orders 07/03/21 18:25 Complete Blood Count AUTO DIFF Stat Comprehensive Metabolic Panel Stat Prothrombin Time INR Stat Vital Signs Vital signs: Vital Signs - 8 hr 07/03/21 16:37 Temperature 97.6 F Pulse Rate 92 H Respiratory Rate 16 Blood Pressure 139/80 Pulse Oximetry 97 MDM - Abdominal Pain Lab Data Result diagrams: 07/03/21 18:25 07/03/21 18:25 Labs: Lab Results 07/03/21 07/03/21 07/03/21 Range/Units 18:25 18:25 18:25 WBC 10.6 (4.5-11.0) X10^3/uL RBC 4.53 (4.0-5.2) X10^6/uL Hgb 12.0 (12.0-16.0) g/dL Hct 36.5 (36-46) % MCV 80.5 (80-100) fL MCH 26.5 (26-34) PG MCHC 32.9 (30-36) % RDW 13.4 (11.6-14.8) % Plt Count 361 (150-400) X10^3/uL Neut % (Auto) 56.5 (50-75) % Lymph % (Auto) 34.4 (25-40) % [place] % (Auto) 6.0 (3-14) % Eos % (Auto) 2.1 (2-4) % Baso % (Auto) 1.0 (0-2) % Neut # (Auto) 6000 (5364-2957) /uL Lymph # (Auto) 3600 (0534-9775) /uL [place] # (Auto) 600 (0-900) /uL Eos # (Auto) 200 (0-450) /uL Baso # (Auto) 100 (0-100) /uL PT 12.6 (10.1-12.7) SECONDS INR 1.1 (0.9-1.3) Sodium 141 (137-145) mmol/L Potassium 3.7 (3.4-5.1) mmol/L Chloride 106 (98-107) mmol/L Carbon Dioxide 25 (22-32) mmol/L BUN 11 (7-17) mg/dL Creatinine 0.77 (0.52-1.04) mg/dL Estimated GFR > 60.0 (>60) mL/min BUN/Creatinine Ratio 14.3 (6-22) Glucose 127 H (70-100) mg/dL Calcium 9.2 (8.4-10.2) mg/dL Total Bilirubin 0.2 (0.2-1.3) mg/dL AST 31 (14-36) IU/L ALT 37 H (<35) IU/L Alkaline Phosphatase 52 (38-126) U/L Total Protein 7.3 (6.3-8.2) g/dL Albumin 4.1 (3.5-5.0) g/dL Globulin 3.2 (1.7-4.1) g/dL Albumin/Globulin Ratio 1.3 (1.0-2.8) Point of care testing: Point of Care Testing Test Results Negative Urine Dip Bedside Urine Glucose Negative Bedside Urine Bilirubin - Negative Bedside Urine Ketone - Negative Urine Specific [place] 1.030 Bedside Urine Occult Blood - Negative Bedside Urine pH 6.0 Bedside Urine Protein - Negative Bedside Urine Urobilinogen - Negative Bedside Urine Nitrite - Negative Bedside Urine Leukocytes - Negative Esterase Discharge Plan Departure Patient Disposition: Home Clinical Impression: Bright red rectal bleeding Instructions: DI for Rectal Bleeding Activity Restrictions/Additional Instructions: *You have been diagnosed with [painless bright red rectal bleeding, physical exam and labs are very reassuring] *What to do: *Please continue to take your regular medications as directed. [ ] New medication prescriptions sent to your pharmacy: [ ] [ ] New medication written as a paper prescription [ x] No new medications given *Please follow up with your primary care provider in 2-3 days, call for an appointment. Let them know you were seen in the Emergency Department and that we ask that you be seen in follow up. We will electronically transmit a record of today's note if your PCP is in our system *If you do not have a primary care provider please contact the [facility] Resource line at [phone]. They will ask some questions about your medical history and help get you set up with a doctor in the community. *Return to Emergency Department if you should have any new, worsening or concerning symptoms, such as [fever greater than 101 F, shaking chills, worsening pain, persistent vomiting or other bothersome symptoms] Prescriptions: No Action doxycycline hyclate 100 mg tablet 100 mg PO BID Qty: 20 RF: 0
[2021-07-03 19:23] VITALS: BP 144/73; PULSE 91; RESP 16; O2SAT 97
== END 2021-07-03 19:24 | disposition home or self-care (01) ==
PROVIDERS: Emergency Provider Emergency Medicine
DX: K62.5 Hemorrhage of anus and rectum (principal)
CPT/HCPCS: 36415; 80053; 81003; 81025; 85025; 85610; 99282; 99283

== ENCOUNTER 2021-07-04 22:33 | Emergency (ER) | payer MEDICAID, OTHER, SELFPAY ==
[2021-07-04 22:37] VITALS: BP 162/70; PULSE 80; RESP 20; TEMP 36.9; O2SAT 97
[2021-07-04 23:08] LABS: Add Manual Diff / Slide Review NO; Basophils Absolute Auto 0 /uL (0-100); Basophils Percent Auto 0.4 % (0-2); Eosinophils Absolute Auto 300 /uL (0-450); Eosinophils Percent Auto 2.6 % (2-4); Hematocrit 36.4 % (36-46); Hemoglobin 11.8 g/dL (12.0-16.0); Lymphocytes Absolute Auto 3600 /uL (1100-4500); Lymphocytes Percent Auto 33.2 % (25-40); Mean Corpuscular HGB Conc 32.5 % (30-36); Mean Corpuscular Hemoglobin 26.2 PG (26-34); Mean Corpuscular Volume 80.5 fL (80-100); Monocytes Absolute Auto 700 /uL (0-900); Monocytes Percent Auto 6.7 % (3-14); Neutrophils Absolute Auto 6100 /uL (1500-7000); Neutrophils Percent Auto 57.1 % (50-75); Platelet Count 361 X10^3/uL (150-400); Red Blood Cell Count 4.52 X10^6/uL (4.0-5.2); Red Cell Distribution Width 13.3 % (11.6-14.8); White Blood Cell Count 10.7 X10^3/uL (4.5-11.0)
--- NOTE | 2021-07-04 23:29 | ED.GIBLEED ---
HPI - GI Bleed General Chief complaint: GI Bleed Stated complaint: bloody stool getting worse Time Seen by Provider: 07/04/21 22:44 Source: patient Mode of arrival: Ambulatory History of Present Illness HPI Narrative: Patient is a 25-year-old female who was seen here in the emergency department approximately 2 days ago for bright red blood per rectum. She had labs and exam performed and is discharged home with instructions to follow-up with her primary doctor. She returns today for continued symptoms. She states that she is also having some dark colored stools. Some nausea but no vomiting. No fevers. Does have some abdominal tenderness but seems to be associated around the times she is about to have a bowel movement. Because she now has some dark colored stools and continued bright red blood is why she came the emergency department for evaluation. Related Data Previous Rx's Medication Instructions Recorded doxycycline hyclate 100 mg tablet 100 mg PO BID #20 tab 06/12/21 Allergies Allergy/AdvReac Type Severity Reaction Status Date / Time No Known Drug Allergies Allergy Verified 07/03/21 16:45 Review of Systems Constitutional Constitutional: Reports system reviewed and no additional complaints, except as documented Cardiovascular Cardiovascular: Reports system reviewed and no additional complaints, except as documented Respiratory Respiratory: Reports system reviewed and no additional complaints, except as documented Gastrointestinal Gastrointestinal: Reports as per HPI Genitourinary Genitourinary: Reports system reviewed and no additional complaints, except as documented Musculoskeletal Musculoskeletal: Reports system reviewed and no additional complaints, except as documented Integumentary/Breasts Skin/Breast: Reports system reviewed and no additional complaints, except as documented Neurologic Neurologic: Reports system reviewed and no additional complaints, except as documented Hematologic/Lymphatic On Anticoagulants: No Allergic/Immunologic Allergic/Immunologic: Reports system reviewed and no additional complaints, except as documented Patient History Medical History Rectal bleeding Social History Smoking Status: Never smoker Smoking Status: Never smoker alcohol intake frequency: 0-2 drinks per day Substance Use Type: marijuana Exam Initial Vital Signs Initial Vital Signs: Vital Signs Temperature 98.5 F 07/04/21 22:37 Pulse Rate 80 07/04/21 22:37 Respiratory Rate 20 07/04/21 22:37 Blood Pressure 162/70 H 07/04/21 22:37 Pulse Oximetry 97 08/03/21 22:37 Const General: cooperative and healthy appearing [facility] Head: normal to inspection and normocephalic Resp Effort & Inspection: normal respiratory effort Cardio Rate: regular rate GI Inspection: normal to inspection Palpation: soft, No firm, No guarding and No tender Skin General: no rashes or lesions noted Neuro General: patient alert, patient awake and moves all extremities Extrem General: normal to inspection and capillary refill normal Psych Appearance: grossly normal and well kempt Course Orders Ordered: ED Orders 07/04/21 22:55 CBC Auto Diff [Complete Blood Count AUTO DIFF] Stat Vital Signs Vital signs: Vital Signs - 8 hr 07/04/21 22:37 Temperature 98.5 F Pulse Rate 80 Respiratory Rate 20 Blood Pressure 162/70 H Pulse Oximetry 97 MDM - GI Bleed Medical Records Attestation: I reviewed the patient's medical records. Lab Data Attestation: I reviewed the patient's lab results. Result diagrams: 07/04/21 22:55 Labs: Lab Results 07/04/21 Range/Units 22:55 WBC 10.7 (4.5-11.0) X10^3/uL RBC 4.52 (4.0-5.2) X10^6/uL Hgb 11.8 L (12.0-16.0) g/dL Hct 36.4 (36-46) % MCV 80.5 (80-100) fL MCH 26.2 (26-34) PG MCHC 32.5 (30-36) % RDW 13.3 (11.6-14.8) % Plt Count 361 (150-400) X10^3/uL Neut % (Auto) 57.1 (50-75) % Lymph % (Auto) 33.2 (25-40) % [place] % (Auto) 6.7 (3-14) % Eos % (Auto) 2.6 (2-4) % Baso % (Auto) 0.4 (0-2) % Neut # (Auto) 6100 (6982-0326) /uL Lymph # (Auto) 3600 (3406-3693) /uL [place] # (Auto) 700 (0-900) /uL Eos # (Auto) 300 (0-450) /uL Baso # (Auto) 0 (0-100) /uL MDM Narrative Medical decision making narrative: Patient's vital signs and exam here in the emergency department unremarkable. Her CBC is also unremarkable. I do not feel the need to repeat a rectal exam she just had 1 done within the past 24 hours and did not show any signs hemorrhoids. She is having bright red blood which will skew any potential Hemoccult for further detection of the dark colored stools she is having. Provided reassurance to her family at bedside. Informed them that the next step in this would be to contact her primary doctor to discuss referral to see a GI provider to discuss the indications for colonoscopy and upper endoscopy. I feel that we can hold on further workup for now. She was given return precautions and follow-up instructions. She expressed understanding agreement. Discharge Plan Departure Patient Disposition: Home Clinical Impression: Rectal bleeding Instructions: DI for Rectal Bleeding Activity Restrictions/Additional Instructions: Your blood counts today are very reassuring. I recommend that you do start a medicine called Pepcid/famotidine like we discussed. I also recommend that you contact your primary doctor to discuss the indications for a referral to see Gastroenterology to discuss a colonoscopy. Return to the emergency department for any new symptoms. Prescriptions: No Action doxycycline hyclate 100 mg tablet 100 mg PO BID Qty: 20 RF: 0
== END 2021-07-04 23:38 | disposition home or self-care (01) ==
PROVIDERS: Emergency Provider Emergency Medicine
DX: K62.5 Hemorrhage of anus and rectum (principal)
CPT/HCPCS: 36415; 85025; 99281; 99283

== ENCOUNTER 2021-09-19 15:55 | Emergency (ER) | payer MEDICAID, OTHER, SELFPAY ==
[2021-09-19 16:03] VITALS: BP 119/68; PULSE 81; RESP 16; TEMP 36.7; O2SAT 98; BMI 48.7
[2021-09-19 17:11] LABS: Alanine Aminotransferase 31 IU/L (<35); Albumin 4.2 g/dL (3.5-5.0); Albumin Globulin Ratio 1.3 (1.0-2.8); Alkaline Phosphatase 49 U/L (38-126); Aspartate Aminotransferase 29 IU/L (14-36); BUN Creatinine Ratio 16.4 (6-22); Bilirubin Total 0.3 mg/dL (0.2-1.3); Blood Urea Nitrogen 9 mg/dL (7-17); Calcium 8.9 mg/dL (8.4-10.2); Carbon Dioxide 26 mmol/L (22-32); Chloride 105 mmol/L (98-107); Estimated Glomerular Filt Rate > 60.0 mL/min (>60); Globulin 3.2 g/dL (1.7-4.1); Glucose 104 mg/dL (70-100); HEMOLYSIS 21 (0-50); Lipase 95 U/L (23-300); Potassium 3.8 mmol/L (3.4-5.1); Sodium 140 mmol/L (137-145); Total Protein 7.4 g/dL (6.3-8.2)
--- NOTE | 2021-09-19 17:16 | ED_ITS ---
HPI - General Adult General Chief complaint: Abdominal Pain Stated complaint: STOMACH PROBLEMS Time Seen by Provider: 09/19/21 16:53 Source: patient Mode of arrival: Ambulatory Limitations: no limitations History of Present Illness HPI narrative: Patient is a 25-year-old female. Has had some chronic abdominal issues in the past. Is scheduled to have a colonoscopy performed in 2 days from now. She states that last evening she had an episode of vomiting. She started to have some abdominal pain after that. Since then has had multiple bowel movements. She states that it is not diarrhea but it is somewhat loose. No fevers. Has not had any nausea vomiting since early this morning. Has tolerated oral intake. No urinary symptoms. No vaginal bleeding. She states that she gets intense cramping just prior to having the bowel movements. The pain she is having now is different than her baseline abdominal discomfort for which she is getting the colonoscopy in 2 days Related Data Home Medications Medication Instructions Recorded Confirmed No Known Home Medications 09/13/21 09/19/21 Allergies Allergy/AdvReac Type Severity Reaction Status Date / Time No Known Drug Allergies Allergy Verified 09/19/21 16:06 Review of Systems Cardiovascular Cardiovascular: Denies chest pain and Denies dyspnea Respiratory Respiratory: Denies dyspnea Gastrointestinal Gastrointestinal: Reports as per HPI Genitourinary Genitourinary: Reports system reviewed and no additional complaints, except as documented and Reports as per HPI Musculoskeletal Musculoskeletal: Reports system reviewed and no additional complaints, except as documented, Reports as per HPI and Denies back pain Integumentary/Breasts Skin/Breast: Reports system reviewed and no additional complaints, except as documented Neurologic Neurologic: Reports system reviewed and no additional complaints, except as documented Hematologic/Lymphatic On Anticoagulants: No Patient History Medical History Rectal bleeding Social History Smoking Status: Never smoker Smoking Status: Never smoker alcohol intake frequency: 0-2 drinks per day Substance Use Type: marijuana Exam Initial Vital Signs Initial Vital Signs: Vital Signs Temperature 98.1 F 09/19/21 16:03 Pulse Rate 81 09/19/21 16:03 Respiratory Rate 16 09/19/21 16:03 Blood Pressure 119/68 09/19/21 16:03 Pulse Oximetry 98 09/19/21 16:03 Const General: cooperative, healthy appearing and comfortable [facility] Head: normal to inspection Neck Neck: normal visual inspection Chest Chest: normal inspection of the chest Resp Effort & Inspection: normal respiratory effort Cardio Rate: regular rate GI Inspection: normal to inspection and non-distended Palpation: soft, No firm, No guarding and tender (Midline abdomen) Back/Spine/Pelvis Back: No CVA tenderness Skin General: no rashes or lesions noted Neuro General: patient alert, patient awake and moves all extremities Extrem General: normal to inspection and capillary refill normal Psych Appearance: grossly normal and well kempt Course Orders Ordered: ED Orders 09/19/21 16:50 Complete Blood Count AUTO DIFF Stat Comprehensive Metabolic Panel Stat Lipase Stat Vital Signs Vital signs: Vital Signs - 8 hr 09/19/21 16:03 Temperature 98.1 F Pulse Rate 81 Respiratory Rate 16 Blood Pressure 119/68 Pulse Oximetry 98 Medical Decision Making Lab Data Lab results reviewed: Yes I reviewed the patient's lab results. Result diagrams: 09/19/21 16:50 09/19/21 16:50 Labs: Lab Results 09/19/21 09/19/21 Range/Units 16:50 16:50 WBC 11.4 H (4.5-11.0) X10^3/uL RBC 4.78 (4.0-5.2) X10^6/uL Hgb 12.2 (12.0-16.0) g/dL Hct 38.0 (36-46) % MCV 79.6 L (80-100) fL MCH 25.6 L (26-34) PG MCHC 32.2 (30-36) % RDW 13.9 (11.6-14.8) % Plt Count 366 (150-400) X10^3/uL Neut % (Auto) 57.9 (50-75) % Lymph % (Auto) 33.5 (25-40) % [place] % (Auto) 5.5 (3-14) % Eos % (Auto) 1.9 L (2-4) % Baso % (Auto) 1.2 (0-2) % Neut # (Auto) 6600 (8782-6359) /uL Lymph # (Auto) 3800 (4337-5313) /uL [place] # (Auto) 600 (0-900) /uL Eos # (Auto) 200 (0-450) /uL Baso # (Auto) 100 (0-100) /uL Sodium 140 (137-145) mmol/L Potassium 3.8 (3.4-5.1) mmol/L Chloride 105 (98-107) mmol/L Carbon Dioxide 26 (22-32) mmol/L BUN 9 (7-17) mg/dL Creatinine 0.55 (0.52-1.04) mg/dL Estimated GFR > 60.0 (>60) mL/min BUN/Creatinine Ratio 16.4 (6-22) Glucose 104 H (70-100) mg/dL Calcium 8.9 (8.4-10.2) mg/dL Total Bilirubin 0.3 (0.2-1.3) mg/dL AST 29 (14-36) IU/L ALT 31 (<35) IU/L Alkaline Phosphatase 49 (38-126) U/L Total Protein 7.4 (6.3-8.2) g/dL Albumin 4.2 (3.5-5.0) g/dL Globulin 3.2 (1.7-4.1) g/dL Albumin/Globulin Ratio 1.3 (1.0-2.8) Lipase 95 (23-300) U/L Point of Care Testing Test Results Negative Urine Dip Bedside Urine Glucose Negative Bedside Urine Bilirubin - Negative Bedside Urine Ketone - Negative Urine Specific [place] 1.015 Bedside Urine Occult Blood - Negative Bedside Urine pH 7.5 Bedside Urine Protein - Negative Bedside Urine Urobilinogen - Negative Bedside Urine Nitrite - Negative Bedside Urine Leukocytes - Negative Esterase Point of care testing: Point of Care Testing Test Results Negative Urine Dip Bedside Urine Glucose Negative Bedside Urine Bilirubin - Negative Bedside Urine Ketone - Negative Urine Specific [place] 1.015 Bedside Urine Occult Blood - Negative Bedside Urine pH 7.5 Bedside Urine Protein - Negative Bedside Urine Urobilinogen - Negative Bedside Urine Nitrite - Negative Bedside Urine Leukocytes - Negative Esterase [facility] Narrative Medical decision making narrative: Patient appears well. Has a benign abdomen. Labs unremarkable. Urinalysis unremarkable. test is negative. I have low suspicion for gallbladder pathology. Low suspicion for appendicitis. I feel that we should hold on a CT scan for now given her presentation and her exam and her labs and her vital signs. Will have her keep all of her scheduled upcoming medical appointments. She was given return precautions and follow-up instructions. She expressed understanding and agreement. Discharge Plan Departure Patient Disposition: Home Clinical Impression: Abdominal pain Instructions: DI for Abdominal Pain-Adult Activity Restrictions/Additional Instructions: I recommend that you eat a bland diet for the next couple days. Keep all of your scheduled upcoming medical appointments. Contact your primary doctor for a follow-up. Return to the emergency department for any new or worsening symptoms Prescriptions: No Action No Known Home Medications RF: 0
[2021-09-19 17:20] LABS: Add Manual Diff / Slide Review NO; Basophils Absolute Auto 100 /uL (0-100); Basophils Percent Auto 1.2 % (0-2); Eosinophils Absolute Auto 200 /uL (0-450); Eosinophils Percent Auto 1.9 % (2-4); Hemoglobin 12.2 g/dL (12.0-16.0); Lymphocytes Absolute Auto 3800 /uL (1100-4500); Lymphocytes Percent Auto 33.5 % (25-40); Mean Corpuscular HGB Conc 32.2 % (30-36); Mean Corpuscular Hemoglobin 25.6 PG (26-34); Mean Corpuscular Volume 79.6 fL (80-100); Monocytes Absolute Auto 600 /uL (0-900); Monocytes Percent Auto 5.5 % (3-14); Neutrophils Absolute Auto 6600 /uL (1500-7000); Neutrophils Percent Auto 57.9 % (50-75); Platelet Count 366 X10^3/uL (150-400); Red Blood Cell Count 4.78 X10^6/uL (4.0-5.2); Red Cell Distribution Width 13.9 % (11.6-14.8); White Blood Cell Count 11.4 X10^3/uL (4.5-11.0)
[2021-09-19 17:52] VITALS: BP 119/69; PULSE 70; RESP 18; TEMP 36.8; O2SAT 100
== END 2021-09-19 17:53 | disposition home or self-care (01) ==
PROVIDERS: Emergency Provider Emergency Medicine
DX: R10.9 Unspecified abdominal pain (principal); R11.10 Vomiting, unspecified
CPT/HCPCS: 36415; 80053; 81003; 81025; 83690; 85025; 99283

== ENCOUNTER 2021-09-21 14:52 | Day surgery (SDC) | payer MEDICAID, OTHER, SELFPAY ==
[2021-09-21 15:13] VITALS: BP 126/79; PULSE 79; RESP 18; TEMP 36.6; O2SAT 98; BMI 50.1
[2021-09-21] MEDS: LACTATED RINGERS 1,000 ML 200 ML IV (15:21)
--- NOTE | 2021-09-21 15:21 | PM.PREOP ---
Pre-operative Note Interval Note History & Physical reviewed/Exam performed by Physician: Yes Changes to H&P: No
[2021-09-21] MEDS: LIDOCAINE 4% SOLN 50 ML 20 ML TOP (15:30)
[2021-09-21 15:56] VITALS: BP 111/63; PULSE 74; RESP 16; TEMP 36.8; O2SAT 98
--- NOTE | 2021-09-21 15:56 | P.OP.EGD&C_ITS ---
Operative Date/Time/Diagnoses Date of procedure: 09/21/21 Time of procedure: 15:56 Pre-op diagnosis: Blood per rectum Post-op diagnosis: same Procedure & Clinicians Study performed: Esophagoduodenoscopy colonoscopy Same procedure as scheduled: Yes Indications: Blood per rectum Surgeon: Keegan Guardado Procedure Notes Procedure in detail: Medications: Conscious sedation using 9mg IV midazolam and 200mcg IV of fentanyl The history and physical was performed/updated and the patient is ASA class is 3. The procedure was discussed in detail with the patient. Potential risks complications including infection, bleeding, missed diagnosis, perforation, need for surgery, and were explained. Their questions were answered and informed consent was obtained. Patient was brought to the procedure room and placed standard monitoring equipm ent. The patient's vital signs were monitored continuously throughout the entire procedure. Prior to starting time-out was performed. The patient was placed in the left lateral recumbent position. Procedural sedation was administered. A bite block was placed. the scope was inserted into the mouth and advanced through the esophagus and into the stomach. The pylorus was intubated and the duodenum was normal to the 2nd portion. The scope was retroflexed within the stomach and there was a small hiatal hernia. No ulcers, or gastritis. The scope was withdrawn into the esophagus the Z line was seen at 38 cm from the incisions. There was no Miner's esophagitis or masses or strictures. Stomach was desufflated and scope removed. Patient tolerated procedure well. Examination began with a thorough inspection of the perianal area there was no evidence of fissures, fistulae, external hemorrhoids or cutaneous malignancy. The colonoscopy scope was then placed into the anal canal and was advanced to the cecum, which was identified by the ileocecal valve, and the confluence of the taenia. The scope was then slowly withdrawn examining colon thoroughly in all directions, irrigating it of any residual stool. FINDINGS 1. Normal esphoagus, stomach and colon 2. No masses polyps 3. No blood was seen within the GI tract. The patient tolerated the procedure well. They will be discharged once criteria are met. The prep was of good/excellent quality. The withdrawl time was * minutes. The sedation time was * minutes. Specimen(s): none sent Complications: none Impression: normal colonoscopy and esophagoduodenoscopy Post-procedure Plan for aftercare: follow up as needed Disposition: same day surgery
[2021-09-21] MEDS: fentaNYL 250 MCG/5 ML INJ IV (15:58)
[2021-09-21] MEDS: MIDAZOLAM 5 MG/5 ML VIAL IV (15:58)
[2021-09-21 16:04] VITALS: BP 113/61; PULSE 71; RESP 16; O2SAT 97
[2021-09-21 16:09] VITALS: BP 106/61; PULSE 70; RESP 16; O2SAT 97
[2021-09-21 16:14] VITALS: BP 111/63; PULSE 64; RESP 16; O2SAT 98
[2021-09-21 16:18] VITALS: BP 117/66; PULSE 70; RESP 18; TEMP 36.8; O2SAT 95
== END 2021-09-21 16:39 | disposition home or self-care (01) ==
PROVIDERS: PCP Internal Medicine; Referring Provider Surgery; Visit Provider Surgery
PROC: 0DJ08ZZ Inspection of Upper Intestinal Tract, Via Natural or Artificial Opening Endoscopic (ICD-10-PCS; CPT 43235; principal; 2021-09-21 16:00)
PROC: 0DJD8ZZ Inspection of Lower Intestinal Tract, Via Natural or Artificial Opening Endoscopic (ICD-10-PCS; CPT 45378; 2021-09-21 16:00)
DX: K62.5 Hemorrhage of anus and rectum (principal); K44.9 Diaphragmatic hernia without obstruction or gangrene
CPT/HCPCS: 43235; 45378; 81025; J2250; J3010

== ENCOUNTER 2022-04-13 13:00 | Emergency (ER) | payer MEDICAID, OTHER, SELFPAY ==
[2022-04-13] VITALS (9 sets, daily range): BP systolic 140–153; BP diastolic 67–86; PULSE 81–914; RESP 15–28; TEMP 36.1; O2SAT 96–99; BMI 50.1
[2022-04-13] MEDS: EPINEPHrine 1 MG/ML 0.5 MG SUBCUT (13:24)
[2022-04-13] MEDS: diphenhydrAMINE 50 MG/ML VIAL 25 MG IV (13:25)
[2022-04-13] MEDS: methylPREDNISolone 125 MG/2 ML VIAL IV (13:26)
[2022-04-13] MEDS: ONDANSETRON 4 MG ODT SL (13:52)
[2022-04-13] MEDS: KETOROLAC 10 MG TABLET PO (13:52)
[2022-04-13] MEDS: FAMOTIDINE 20 MG TABLET PO (13:52)
[2022-04-13] MEDS: hydrOXYzine pamoate 25 MG CAPSULE PO (13:52)
--- NOTE | 2022-04-13 13:57 | ED_ITS ---
HPI - Allergic Reaction <GARRETT Salazar - Last Filed: 04/13/22 19:45> General Chief complaint: Allergic Reaction Stated complaint: Allergic Reation, Swelling in Tongue and Throat Time Seen by Provider: 04/13/22 13:19 Source: patient Mode of arrival: Ambulatory History of Present Illness HPI narrative: This is a 26-year-old female who presents to the emergency department complaining of oral swelling and throat swelling which started after she ate peanut butter in honey sandwich last night. 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 She states that she had peanut butter sandwich the day prior without and knee reaction. She is concerned she is reacting to the honey or peanut butter and honey spread mixture. Patient states that she took Benadryl this morning and has improved since. She complains of mouth and throat pain, denies any vomiting, chest pain, shortness of breath or wheezing. She states this is never happened to her before. She states her primary care provider has retired, she is currently looking for primary care provider. She denies any other allergies, any new medications or substances in the home that she could every acted to. She denies diarrhea endorses some mild nausea. Related Data Previous Rx's Medication Instructions Recorded cetirizine 10 mg tablet 10 mg PO DAILY #10 tab 04/13/22 epinephrine 0.3 mg/0.3 mL 0.3 mg (0.3 mL) IM Q5-15M PRN #2 ea 04/13/22 injection, auto-injector hydroxyzine HCl 10 mg tablet 10 mg PO Q8H PRN #14 tab 04/13/22 omeprazole 20 mg capsule,delayed 20 mg PO DAILY #10 cap 04/13/22 release prednisone 20 mg tablet 40 mg PO DAILY 5 Days #10 tab 04/13/22 Allergies Allergy/AdvReac Type Severity Reaction Status Date / Time No Known Drug Allergies Allergy Verified 04/13/22 13:05 Review of Systems <GARRETT Salazar - Last Filed: 04/13/22 19:45> Review of Systems Narrative: General: denies fever, chills, malaise, sweats, fatigue Head/Neck: denies headache, neck pain, dizziness, endorses scratchy feeling throat, swollen lips, swollen tongue , she states it hurts to swallow Eyes: denies visual changes, eye pain Cardio: denies chest pain, palpitations, edema Respiratory: denies dyspnea, cough, orthopnea GI: denies abdominal pain, nausea, vomiting, or diarrhea : denies dysuria, hematuria, urinary retention, frequency or incontinence MSK: denies joint pain, muscle weakness Skin: denies rash, itching, skin lesions or other Neuro: denies numbness, tingling Patient History <GARRETT Salazar - Last Filed: 04/13/22 19:45> Medical History Rectal bleeding Social History household members: family Smoking Status: Never smoker Smoking Status: Never smoker alcohol intake frequency: a few times a month Substance Use Type: does not use Exam <GARRETT Salazar - Last Filed: 04/13/22 19:45> Narrative Exam Narrative: Independently reviewed vitals signs and nursing notes. General: cooperative, comfortable, in no acute distress, well developed and well groomed Head: atraumatic, symmetrical facial expressions Neck: supple, atraumatic, without lymphadenopathy. Eyes: pupils equal round and reactive, EOMI, conjunctiva normal Nose: nares patent, no rhinorrhea Mouth/Throat: uvula midline, moist mucus membranes, mild edema to lips, no oropharyngeal edema Cardiovascular: regular rate and rhythm, no peripheral edema, warm extremities Respiratory: normal effort, able to speak in complete sentences, no audible wheezing, stridor, or rales. No retractions or tachypnea. GI: abdomen soft, nontender to palpation, nondistended, no masses, no exquisite tenderness with exam, without guarding or rebound. MSK: moves all extremities, ambulatory w/steady gait, neurovascularly intact, no weakness Skin: brisk capillary refill, no rash, no erythema Neuro: normal speech and cognition, A&O x3, normal tone Psych: mental status is grossly normal, congruent mood, normal affect, pleasant and cooperative Initial Vital Signs Initial Vital Signs: Vital Signs Temperature 97.0 F L 04/13/22 13:05 Pulse Rate 914 H 04/13/22 13:05 Respiratory Rate 15 04/13/22 13:05 Blood Pressure 144/84 H 04/13/22 13:05 Pulse Oximetry 96 04/13/22 13:05 <Manny Reinoso DO - Last Filed: 04/14/22 07:02> Initial Vital Signs Initial Vital Signs: Vital Signs Temperature 97.0 F L 04/13/22 13:05 Pulse Rate 914 H 04/13/22 13:05 Respiratory Rate 15 04/13/22 13:05 Blood Pressure 144/84 H 04/13/22 13:05 Pulse Oximetry 96 04/13/22 13:05 Course <GARRETT Salazar - Last Filed: 04/13/22 19:45> Orders Ordered: Discontinued Medications Diphenhydramine HCl (Diphenhydramine 50 Mg/Ml Vial) 25 mg IV NOW ONE Stop: 04/13/22 13:22 Last Admin: 04/13/22 13:25 Dose: 25 mg Documented by: SHIRIN Epinephrine HCl (Epinephrine 1 Mg/Ml) 0.5 mg SUBCUT NOW ONE Stop: 04/13/22 13:22 Last Admin: 04/13/22 13:24 Dose: 0.5 mg Documented by: SHIRIN Famotidine (Famotidine 20 Mg Tablet) 20 mg PO NOW ONE Stop: 04/13/22 13:45 Last Admin: 04/13/22 13:52 Dose: 20 mg Documented by: SHIRIN Hydroxyzine Pamoate (Hydroxyzine Pamoate 25 Mg Capsule) 25 mg PO NOW ONE Stop: 04/13/22 13:43 Last Admin: 04/13/22 13:52 Dose: 25 mg Documented by: SHIRIN Ketorolac Tromethamine (Ketorolac 10 Mg Tablet) 10 mg PO NOW ONE Stop: 04/13/22 13:43 Last Admin: 04/13/22 13:52 Dose: 10 mg Documented by: SHIRIN Methylprednisolone (Methylprednisolone 125 Mg/2 Ml Vial) 125 mg IV NOW ONE Stop: 04/13/22 13:22 Last Admin: 04/13/22 13:26 Dose: 125 mg Documented by: SHIRIN Ondansetron HCl (Ondansetron 4 Mg Odt) 4 mg SL NOW ONE Stop: 04/13/22 13:43 Last Admin: 04/13/22 13:52 Dose: 4 mg Documented by: SHIRIN Vital Signs Vital signs: Vital Signs - 8 hr 04/13/22 13:05 04/13/22 13:13 04/13/22 13:15 Temperature 97.0 F L Pulse Rate 914 H 86 87 Respiratory Rate 15 Blood Pressure 144/84 H 140/77 Pulse Oximetry 96 97 96 04/13/22 13:30 04/13/22 13:45 04/13/22 14:00 Temperature Pulse Rate 85 88 84 Respiratory Rate 20 20 20 Blood Pressure 147/83 H 153/86 H Pulse Oximetry 98 96 98 04/13/22 14:05 04/13/22 14:15 04/13/22 14:30 Temperature Pulse Rate 81 82 83 Respiratory Rate 28 H 23 Blood Pressure 146/79 H 153/77 H 148/67 H Pulse Oximetry 97 99 97 <Manny Reinoso DO - Last Filed: 04/14/22 07:02> Orders Ordered: Discontinued Medications Diphenhydramine HCl (Diphenhydramine 50 Mg/Ml Vial) 25 mg IV NOW ONE Stop: 04/13/22 13:22 Last Admin: 04/13/22 13:25 Dose: 25 mg Documented by: SHIRIN Epinephrine HCl (Epinephrine 1 Mg/Ml) 0.5 mg SUBCUT NOW ONE Stop: 04/13/22 13:22 Last Admin: 04/13/22 13:24 Dose: 0.5 mg Documented by: SHIRIN Famotidine (Famotidine 20 Mg Tablet) 20 mg PO NOW ONE Stop: 04/13/22 13:45 Last Admin: 04/13/22 13:52 Dose: 20 mg Documented by: SHIRIN Hydroxyzine Pamoate (Hydroxyzine Pamoate 25 Mg Capsule) 25 mg PO NOW ONE Stop: 04/13/22 13:43 Last Admin: 04/13/22 13:52 Dose: 25 mg Documented by: SHIRIN Ketorolac Tromethamine (Ketorolac 10 Mg Tablet) 10 mg PO NOW ONE Stop: 04/13/22 13:43 Last Admin: 04/13/22 13:52 Dose: 10 mg Documented by: SHIRIN Methylprednisolone (Methylprednisolone 125 Mg/2 Ml Vial) 125 mg IV NOW ONE Stop: 04/13/22 13:22 Last Admin: 04/13/22 13:26 Dose: 125 mg Documented by: SHIRIN Ondansetron HCl (Ondansetron 4 Mg Odt) 4 mg SL NOW ONE Stop: 04/13/22 13:43 Last Admin: 04/13/22 13:52 Dose: 4 mg Documented by: SHIRIN Vital Signs Vital signs: Vital Signs - 8 hr 04/13/22 13:05 04/13/22 13:13 04/13/22 13:15 Temperature 97.0 F L Pulse Rate 914 H 86 87 Respiratory Rate 15 Blood Pressure 144/84 H 140/77 Pulse Oximetry 96 97 96 04/13/22 13:30 04/13/22 13:45 04/13/22 14:00 Temperature Pulse Rate 85 88 84 Respiratory Rate 20 20 20 Blood Pressure 147/83 H 153/86 H Pulse Oximetry 98 96 98 04/13/22 14:05 04/13/22 14:15 04/13/22 14:30 Temperature Pulse Rate 81 82 83 Respiratory Rate 28 H 23 Blood Pressure 146/79 H 153/77 H 148/67 H Pulse Oximetry 97 99 97 [facility] - Allergic Reaction <GARRETT Salazar - Last Filed: 04/13/22 19:45> MDM Narrative Medical decision making narrative: This is a 26-year-old female presents to emergency department complaining of lip and throat swelling which started last night after she ate peanut butter and honey spread on bread. 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 She states this improved slightly with Benadryl. Patient took 25 mg of Benadryl 1st thing this morning, came to the emergency department and reports that her oral and throat swelling is improved but still present. She was given IM epinephrine 0.5 mg, 25 mg of IV Benadryl 125 mg of methylprednisolone, 20 mg of famotidine, 25 mg of hydroxyzine and 10 mg of p.o. ketorolac. Patient states that she feels much better. Her breath sounds are clear throughout all wayne, no shortness of breath, chest pain, chest tightness, or diminished breath sounds. Patient was given a prescription prednisone 40 mg Q 5 days, omeprazole for GI prophylaxis, hydroxyzine, EpiPen and Benadryl b.i.d. as needed. She is encouraged to return to the emergency department for any worsening of her symptoms, ongoing swelling of her mouth, tongue, throat or other. This is most likely a allergic reaction to the peanut butter honey spread that is likely made in a plant that processes other nuts like pistachios which she is allergic to. She is encouraged to follow-up with her primary care provider for allergy testing. She is given strict return precautions. Patient is appropriate and amenable to discharge home. Vital signs are stable on repeat examination is unremarkable. Patient has been informed of results. Patient has been given strict return to ER precautions for any new or worsening symptoms. Patient understands to follow up closely with outpatient providers as instructed. Patient understands plan and agrees to discharge home. All questions and concerns answered at this time. Discharge Plan Departure Patient Disposition: Home Clinical Impression: Allergic reaction Qualifiers: Encounter type: initial encounter Qualified Code(s): T78.40XA - Allergy, unspecified, initial encounter Angioedema Qualifiers: Encounter type: initial encounter Qualified Code(s): T78.3XXA - Angioneurotic edema, initial encounter Instructions: Anaphylaxis, Angioedema, DI for Food Allergy, DI for Peanut Al lergy-Adult Activity Restrictions/Additional Instructions: *You have been diagnosed with an allergic reaction to food, this is likely an allergic reaction to the peanut butter and honey mixture because they likely process their nuts in a facility that also has pistachios. Please check labels in the future for peanut butter products to ensure there are no other knots process through that facility because you could have an allergic reaction. Please follow-up when you establish care with a primary care provider for allergy testing to be sure of which not you are and are allergic to. I have prescribed for you and epinephrine pen, please ask the pharmacist to show you how to use it. Please take the steroid for the next 5 days, omeprazole to help preserve and your stomach from ulcer, hydroxyzine if you have itching during the daytime, Benadryl each night for the next 5 days or morning and night if your symptoms are severe like they were today, and cetirizine to help reduce your allergic reaction. I hope you feel better soon. *What to do: *Please continue to take your regular medications as directed. [ x] New medication prescriptions sent to your pharmacy: [ [facility]] [ ] New medication written as a paper prescription [ ] No new medications given *Please follow up with your primary care provider in 2-3 days, call for an appo intment. Let them know you were seen in the Emergency Department and that we asked that you be seen for follow-up. We will electronically transmit a record of today's note if your PCP is in our system *If you do not have a primary care provider please contact [phone] to establish care with one of the [facility] primary care providers. *Return to Emergency Department if you should have any new, worsening or concerning symptoms, such as [fever greater than 101F, chills, worsening pain, persistent vomiting or other bothersome symptoms] Prescriptions: New prednisone 20 mg tablet 40 mg PO DAILY 5 Days Qty: 10 0RF cetirizine 10 mg tablet 10 mg PO DAILY Qty: 10 0RF epinephrine 0.3 mg/0.3 mL auto-injector 0.3 mg IM Q5-15M PRN (Reason: anaphylaxis) Qty: 2 0RF Rx Instructions: do not exceed 3 doses per episode omeprazole 20 mg capsule,delayed release(DR/EC) 20 mg PO DAILY Qty: 10 0RF hydroxyzine HCl 10 mg tablet 10 mg PO Q8H PRN (Reason: itching) Qty: 14 0RF Referrals: Miscellaneous,Doctor, [Primary Care Provider] - <Manny Reinoso DO - Last Filed: 04/14/22 07:02> [facility] Dr Reinoso Co-Sign Statement: I was available for consultation during this patient's emergency department visit. This chart is signed by myself for administrative purposes only. I did not have direct contact with this patient during this visit. They were seen independently by the [facility].
== END 2022-04-13 15:02 | disposition home or self-care (01) ==
PROVIDERS: Emergency Provider Nurse Practitioner Critical Care Medicine
DX: T78.1XXA Other adverse food reactions, not elsewhere classified, initial encounter (principal); T78.3XXA Angioneurotic edema, initial encounter
CPT/HCPCS: 96372; 96374; 96375; 99284; A9270; J0171; J1200; J2930

== ENCOUNTER 2022-04-15 08:36 | Observation (INO) | payer MEDICAID, OTHER, SELFPAY ==
[2022-04-15] VITALS (20 sets, daily range): BP systolic 120–154; BP diastolic 44–82; PULSE 73–92; RESP 12–23; TEMP 36.3–37; O2SAT 96–99; BMI 50.1
[2022-04-15] MEDS: EPINEPHrine 1 MG/ML 0.5 MG IM ×2 (08:48→09:24)
[2022-04-15] MEDS: diphenhydrAMINE 50 MG/ML VIAL 25 MG IV (08:49)
[2022-04-15] MEDS: methylPREDNISolone 125 MG/2 ML VIAL IV (08:49)
[2022-04-15] MEDS: FAMOTIDINE 20 MG/2 ML VIAL IV (08:51)
--- NOTE | 2022-04-15 08:51 | ED_ITS ---
HPI - Allergic Reaction General Chief complaint: Allergic Reaction Stated complaint: sob possiable food allergy tounge throat swollen Time Seen by Provider: 04/15/22 08:44 History of Present Illness HPI narrative: Patient is a 26-year-old female presenting today with allergic reaction. This morning with tongue swelling. She says yesterday her lips were tingly. She was actually seen here 2 days ago for something similar. 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 She was treated for allergic reaction here in the ED with epinephrine Benadryl hydroxyzine Toradol Solu-Medrol Zofran and Pepcid. She got prescription for prednisone and epinephrine. However continues to have some anaphylactic like symptoms today. She has no rash or hives no pruritus. But does have some obvious tongue swelling worse this of breath as difficulty speaking. No significant respiratory distress at this time. She states that she was unable to get her epi pen filled until tomorrow but is taking the prednisone. She was also discharged home on searches seen omeprazole and hydroxyzine. She previously took no home medications. She denies any other exposures. She has not had any further allergy testing. Related Data Previous Rx's Medication Instructions Recorded cetirizine 10 mg tablet 10 mg PO DAILY #10 tab 04/13/22 epinephrine 0.3 mg/0.3 mL 0.3 mg (0.3 mL) IM Q5-15M PRN #2 ea 04/13/22 injection, auto-injector hydroxyzine HCl 10 mg tablet 10 mg PO Q8H PRN #14 tab 04/13/22 omeprazole 20 mg capsule,delayed 20 mg PO DAILY #10 cap 04/13/22 release prednisone 20 mg tablet 40 mg PO DAILY 5 Days #10 tab 04/13/22 Allergies Allergy/AdvReac Type Severity Reaction Status Date / Time pistachio nut Allergy Severe Anaphylaxis Verified 04/15/22 08:57 Review of Systems Review of Systems Narrative: GENERAL: Denies chills, fatigue, malaise, fever, sweats, travel HEENT: See HPI RESPIRATORY: Denies dyspnea, cough, wheezing, hemoptysis, sputum. CARDIOVASCULAR: Denies chest pain, palpitations, orthopnea, edema GASTROINTESTINAL: Denies nausea, vomiting, abdominal pain, diarrhea, con stipation, melena. : Denies dysuria, frequency, incontinence, hematuria, urinary retention, flank pain. MUSCULOSKELETAL: Denies weakness, joint pain, or bony pain SKIN: No rash, no erythema, no pruritus NEUROLOGIC: Denies weakness, dizziness, headache, numbness, change in speech, confusion PSYCHIATRIC: No concerning psychosocial issues. 12 point review of systems is negative except for those stated above and HPI Patient History Medical History Rectal bleeding Social History household members: family Smoking Status: Never smoker Smoking Status: Never smoker alcohol intake frequency: a few times a month Substance Use Type: does not use Exam Initial Vital Signs Initial Vital Signs: Vital Signs Temperature 98.6 F 04/15/22 08:38 Pulse Rate 85 04/15/22 08:38 Respiratory Rate 22 04/15/22 08:38 Blood Pressure 137/71 04/15/22 08:38 Pulse Oximetry 98 04/15/22 08:38 GENERAL: Alert 26-year-old female obese HEENT: Head atraumatic,EOMI, pupils reactive, face symmetric, moist mucous membranes PHARYNX: Tongue swelling mild lip swelling CARDIOVASCULAR: Regular rate and rhythm without murmurs, rubs or gallops. RESPIRATORY: Breath sounds equal bilaterally, no wheezes rales or rhonchi. ABDOMEN: Soft, nontender. Normoactive bowel sounds all 4 quadrants. No guarding or rebound. EXTREMITIES: Normal range of motion, no clubbing or edema. Neurovascularly intact NEUROLOGICAL: Alert and oriented x4. SKIN: Warm, dry, no laceration, no petechiae, no rashes or lesions. No urticaria Course Orders Ordered: ED Orders 04/15/22 10:57 CT soft tissue neck wo con Stat 04/15/22 11:11 COVID19 -Nasal RAPID/Pre-Proc Stat 04/15/22 11:54 CBC Auto Diff [Complete Blood Count AUTO DIFF] Stat CMP [Comprehensive Metabolic Panel] Stat 04/15/22 12:04 Urine Culture Stat Urine Microscopic Stat Sodium Chloride (Normal Saline 0.9%) 1,000 mls @ 100 mls/hr IV CONT ITALIA Ketorolac Tromethamine (Ketorolac 30 Mg/Ml Vial) 30 mg IV Q6H PRN PRN Reason: Pain, Mild (1-3) Stop: 04/20/22 12:32 Ondansetron HCl (Ondansetron 4 Mg/2 Ml Inj) 4 mg IV Q8HR PRN PRN Reason: Nausea And Vomiting Discontinued Medications Diphenhydramine HCl (Diphenhydramine 50 Mg/Ml Vial) 25 mg IV NOW ONE Stop: 04/15/22 08:45 Last Admin: 04/15/22 08:49 Dose: 25 mg Documented by: AMBIKA Epinephrine HCl (Epinephrine 1 Mg/Ml) 0.5 mg IM NOW ONE Stop: 04/15/22 08:45 Last Admin: 04/15/22 08:48 Dose: 0.5 mg Documented by: AMBIKA Epinephrine HCl (Epinephrine 1 Mg/Ml) 0.5 mg IM NOW ONE Stop: 04/15/22 09:21 Last Admin: 04/15/22 09:24 Dose: 0.5 mg Documented by: ANGIE Famotidine (Famotidine 20 Mg/2 Ml Vial) 20 mg IV NOW [facility] Last Admin: 04/15/22 08:51 Dose: 20 mg Documented by: AMBIKA Tranexamic Acid 1,000 mg/ (Sodium Chloride) 100 mls @ 200 mls/hr IV NOW ONE Stop: 04/15/22 10:25 Last Infusion: 04/15/22 11:06 Dose: 0 mls/hr Documented by: Admin: 04/15/22 10:04 Dose: 200 mls/hr Documented by: SHIRIN Loratadine (Loratadine 10 Mg Tablet) 10 mg PO DAILY [facility] Methylprednisolone (Methylprednisolone 125 Mg/2 Ml Vial) 125 mg IV NOW ONE Stop: 04/15/22 08:45 Last Admin: 04/15/22 08:49 Dose: 125 mg Documented by: AMBIKA Prednisone (Prednisone 20 Mg Tablet) 40 mg PO DAILY [facility] Vital Signs Vital signs: Vital Signs - 8 hr 04/15/22 08:38 04/15/22 09:26 04/15/22 09:30 Temperature 98.6 F Pulse Rate 85 77 81 Respiratory Rate 22 16 20 Blood Pressure 137/71 121/61 121/61 Pulse Oximetry 98 99 98 04/15/22 09:45 04/15/22 10:00 04/15/22 10:15 Temperature Pulse Rate 74 79 76 Respiratory Rate 19 19 20 Blood Pressure 120/61 125/66 128/65 Pulse Oximetry 98 98 98 04/15/22 10:30 04/15/22 10:42 04/15/22 10:45 Temperature Pulse Rate 73 77 79 Respiratory Rate 19 20 15 Blood Pressure 127/61 133/65 133/61 Pulse Oximetry 98 97 97 04/15/22 11:00 04/15/22 11:19 04/15/22 11:30 Temperature Pulse Rate 79 80 81 Respiratory Rate 19 23 18 Blood Pressure 126/60 141/79 H 145/75 H Pulse Oximetry 99 97 97 04/15/22 11:45 04/15/22 12:00 Temperature Pulse Rate 87 84 Respiratory Rate 13 12 Blood Pressure 152/78 H Pulse Oximetry 97 97 MDM - Allergic Reaction Lab Data Result diagrams: 04/15/22 11:54 04/15/22 11:54 Labs: Lab Results 04/15/22 04/15/22 04/15/22 Range/Units 11:11 11:54 11:54 WBC 15.6 H (4.5-11.0) X10^3/uL RBC 4.80 (4.0-5.2) X10^6/uL Hgb 12.6 (12.0-16.0) g/dL Hct 38.3 (36-46) % MCV 79.9 L (80-100) fL MCH 26.2 (26-34) PG MCHC 32.8 (30-36) % RDW 13.9 (11.6-14.8) % Plt Count 395 (150-400) X10^3/uL Neut % (Auto) 79.4 H (50-75) % Lymph % (Auto) 16.5 L (25-40) % [place] % (Auto) 3.3 (3-14) % Eos % (Auto) 0.2 L (2-4) % Baso % (Auto) 0.6 (0-2) % Neut # (Auto) 45944 H (3283-9081) /uL Lymph # (Auto) 2600 (2006-7612) /uL [place] # (Auto) 500 (0-900) /uL Eos # (Auto) 0 (0-450) /uL Baso # (Auto) 100 (0-100) /uL Sodium 139 (137-145) mmol/L Potassium 4.1 (3.4-5.1) mmol/L Chloride 107 (98-107) mmol/L Carbon Dioxide 24 (22-32) mmol/L BUN 9 (7-17) mg/dL Creatinine 0.53 (0.52-1.04) mg/dL Estimated GFR > 60 (>60) mL/min BUN/Creatinine Ratio 17.0 (6-22) Glucose 199 H (70-100) mg/dL Calcium 8.2 L (8.4-10.2) mg/dL Total Bilirubin 0.2 (0.2-1.3) mg/dL AST 25 (14-36) IU/L ALT 47 H (<35) IU/L Alkaline Phosphatase 57 (38-126) U/L Total Protein 7.4 (6.3-8.2) g/dL Albumin 4.0 (3.5-5.0) g/dL Globulin 3.4 (1.7-4.1) g/dL Albumin/Globulin Ratio 1.2 (1.0-2.8) Urine RBC (0-5/HPF) Urine WBC (0-5/HPF) Ur Squamous Epith Cells (0-5/HPF) Amorphous Sediment Urine Bacteria (None) Ur Culture Indicated? SARS-CoV-2 (PCR) Negative (Negative) 04/15/22 Range/Units 12:04 WBC (4.5-11.0) X10^3/uL RBC (4.0-5.2) X10^6/uL Hgb (12.0-16.0) g/dL Hct (36-46) % MCV (80-100) fL MCH (26-34) PG MCHC (30-36) % RDW (11.6-14.8) % Plt Count (150-400) X10^3/uL Neut % (Auto) (50-75) % Lymph % (Auto) (25-40) % [place] % (Auto) (3-14) % Eos % (Auto) (2-4) % Baso % (Auto) (0-2) % Neut # (Auto) (6527-3609) /uL Lymph # (Auto) (8985-7536) /uL [place] # (Auto) (0-900) /uL Eos # (Auto) (0-450) /uL Baso # (Auto) (0-100) /uL Sodium (137-145) mmol/L Potassium (3.4-5.1) mmol/L Chloride (98-107) mmol/L Carbon Dioxide (22-32) mmol/L BUN (7-17) mg/dL Creatinine (0.52-1.04) mg/dL Estimated GFR (>60) mL/min BUN/Creatinine Ratio (6-22) Glucose (70-100) mg/dL Calcium (8.4-10.2) mg/dL Total Bilirubin (0.2-1.3) mg/dL AST (14-36) IU/L ALT (<35) IU/L Alkaline Phosphatase (38-126) U/L Total Protein (6.3-8.2) g/dL Albumin (3.5-5.0) g/dL Globulin (1.7-4.1) g/dL Albumin/Globulin Ratio (1.0-2.8) Urine RBC None seen (0-5/HPF) Urine WBC 30-100/hpf H (0-5/HPF) Ur Squamous Epith Cells 1-5 /hpf (0-5/HPF) Amorphous Sediment 2+ Urine Bacteria Moderate (10-30) H (None) Ur Culture Indicated? Specimen cultured SARS-CoV-2 (PCR) (Negative) Point of Care Testing Test Results Negative Imaging Data CT soft tissue neck: Radiologist's Impression: [address] [place] [address] CT Scan Report Signed Patient: Jennifer Booker MR#: [id number] : 1995 Acct:[id number] Age/Sex: 26 / F Date of Service: 04/15/22 Loc: ED Accession Number: [id number] ?? Procedure: CT soft tissue neck wo con Ordering Provider: Louisa Thrasher D.O. PROCEDURE:? CT SOFT TISSUE NECK WO CON ? INDICATIONS:? Tongue and air swelling without improvement ? TECHNIQUE:? Non-contrast 3.0 mm axial sections acquired from the sella to the aortic arch.? Additional oblique axial 3.0 mm sections acquired through the pharynx.? 3 mm thick coronal and sagittal reformats were generated.? For radiation dose reduction, the following was used:? automated exposure control.? ? COMPARISON:? None. ? FINDINGS:? Image quality:? Excellent.? ? Lymph nodes:? No enlarged lymph nodes seen throughout the neck.? ? Vessels:? Non-opacified vessels appear normal in caliber.? ? Neck spaces:? The oropharynx, nasopharynx, and pharynx demonstrate no mucosal lesions.? The vocal cords, false vocal cords, pyriform sinuses, epiglottis, vallecula, and tongue base all appear normal.? Extramucosal spaces appear unremarkable.? No obvious fluid collection in the retropharyngeal space. ? Glands:? The parotid and submandibular glands appear normal, without stones.? Thyroid gland is unremarkable.? ? Miscellaneous:? Visualized brain and orbits appear normal.? Lung apices appear clear.? Superficial soft tissues appear normal.? ? IMPRESSION:? Central airways are patent. ? ? Dictated by: Phill Dumont M.D. on 04/15/2022 at 11:22 ? ? Approved by: Phill Dumont M.D. on 04/15/2022 at 11:26 ? MDM Narrative Medical decision making narrative: Patient having signs and symptoms concerning for anaphylaxis. She is given treatment for such. She is re-evaluated however no significant improvement in tongue swelling. She does a any worsening symptoms though at this time. She may remains awake and alert. Have repeat epinephrine does given. She really had no significant improvement she still has some obvious tongue swelling. TXA is given for possible like her read a [place] angioedema. She certainly did not have any worsening of symptoms with the TXA but symptoms still have not quite improved. She is her own secretions but is difficult to swallow. CT soft tissue neck does not show significant stenosis or edema. Recommend admit for observation for airway monitoring and management. Dr. Alexander in the ED to see and evaluate patient Discharge Plan Departure Patient Disposition: Admitted as Observation Clinical Impression: Angioedema Admit Date/Time: 04/15/22 12:06 Admit Provider: Bandar Alexander
[2022-04-15] MEDS: TRANEXAMIC ACID 1,000 MG in SODIUM CHLORIDE 0.9% 100 ML 200 MG IV (10:04)
--- NOTE | 2022-04-15 10:57 | DI.CT.S_ITS ---
PROCEDURE: CT SOFT TISSUE NECK WO CON INDICATIONS: Tongue and air swelling without improvement TECHNIQUE: Non-contrast 3.0 mm axial sections acquired from the sella to the aortic arch. Additional oblique axial 3.0 mm sections acquired through the pharynx. 3 mm thick coronal and sagittal reformats were generated. For radiation dose reduction, the following was used: automated exposure control. COMPARISON: None. FINDINGS: Image quality: Excellent. Lymph nodes: No enlarged lymph nodes seen throughout the neck. Vessels: Non-opacified vessels appear normal in caliber. Neck spaces: The oropharynx, nasopharynx, and pharynx demonstrate no mucosal lesions. The vocal cords, false vocal cords, pyriform sinuses, epiglottis, vallecula, and tongue base all appear normal. Extramucosal spaces appear unremarkable. No obvious fluid collection in the retropharyngeal space. Glands: The parotid and submandibular glands appear normal, without stones. Thyroid gland is unremarkable. Miscellaneous: Visualized brain and orbits appear normal. Lung apices appear clear. Superficial soft tissues appear normal. IMPRESSION: Central airways are patent. Dictated by: Phill Dumont M.D. on 04/15/2022 at 11:22 Approved by: Phill Dumont M.D. on 04/15/2022 at 11:26
[2022-04-15 11:57] LABS: COVID19 -Nasal RAPID Negative (Negative)
[2022-04-15 12:07] LABS: Add Manual Diff / Slide Review NO; Basophils Absolute Auto 100 /uL (0-100); Basophils Percent Auto 0.6 % (0-2); Eosinophils Absolute Auto 0 /uL (0-450); Eosinophils Percent Auto 0.2 % (2-4); Hematocrit 38.3 % (36-46); Hemoglobin 12.6 g/dL (12.0-16.0); Lymphocytes Absolute Auto 2600 /uL (1100-4500); Lymphocytes Percent Auto 16.5 % (25-40); Mean Corpuscular HGB Conc 32.8 % (30-36); Mean Corpuscular Hemoglobin 26.2 PG (26-34); Mean Corpuscular Volume 79.9 fL (80-100); Monocytes Absolute Auto 500 /uL (0-900); Monocytes Percent Auto 3.3 % (3-14); Neutrophils Absolute Auto 12400 /uL (1500-7000); Neutrophils Percent Auto 79.4 % (50-75); Platelet Count 395 X10^3/uL (150-400); Red Cell Distribution Width 13.9 % (11.6-14.8); White Blood Cell Count 15.6 X10^3/uL (4.5-11.0)
[2022-04-15 12:25] LABS: Alanine Aminotransferase 47 IU/L (<35); Albumin Globulin Ratio 1.2 (1.0-2.8); Alkaline Phosphatase 57 U/L (38-126); Aspartate Aminotransferase 25 IU/L (14-36); Bilirubin Total 0.2 mg/dL (0.2-1.3); Blood Urea Nitrogen 9 mg/dL (7-17); Calcium 8.2 mg/dL (8.4-10.2); Carbon Dioxide 24 mmol/L (22-32); Chloride 107 mmol/L (98-107); Estimated Glomerular Filt Rate > 60 mL/min (>60); Globulin 3.4 g/dL (1.7-4.1); Glucose 199 mg/dL (70-100); HEMOLYSIS < 15 (0-50); Potassium 4.1 mmol/L (3.4-5.1); Sodium 139 mmol/L (137-145); Total Protein 7.4 g/dL (6.3-8.2)
[2022-04-15 12:28] LABS: Amorphous Sediment Urine 2+; Bacteria Urine Moderate (10-30); RBC Urine None Seen (0-5/HPF); Squamous Epithelial Cell Urine 1-5 /HPF (0-5/HPF); WBC Urine 30-100/HPF (0-5/HPF)
[2022-04-15 12:29] LABS: Culture Indicated Urine Specimen Cultured
[2022-04-15] MEDS: SODIUM CHLORIDE 0.9% 1,000 ML 100 ML IV ×2 (12:53→22:56)
[2022-04-15] MEDS: KETOROLAC 30 MG/ML VIAL IV (12:58)
--- NOTE | 2022-04-15 13:09 | PM.HP.1 ---
History of Present Illness History of Present Illness Date Patient Seen: 04/15/22 Time Patient Seen: 12:00 Chief complaint: sob possiable food allergy tounge throat swollen Narrative: Ms. 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 She has not had any further issues with allergies to foods, or food intolerance, or other allergies that she is aware of. She has eaten many different types of nuts since that episode. She presented to the hospital a few days ago for lip, tongue swelling, throat swelling. She felt her lips were tingly. She noted about 1-2 hours before symptoms started she ate a peanut butter and honey sandwich, she then went to bed. She came in to the ED and was given epi, steroids, anti-histamine. She felt improved and went home. She does think her symptoms essentially resolved. She then noted yesterday she drank some almond milk and had tingly lips. She switched to water and symptoms resolved. Then last night about 830p she had dinner, which afterwards she found out was cooked with peanut oil. She went to bed and then woke up this AM with tongue swelling, difficulty speaking, difficulty swallowing due to sore throat. She has no fevers/chills. no shortness of breath. no dizziness, no lightheadedness, or chest pain. No dysuria In the ED workup was done, vitals notable for being afebrile, normal heart rate and normal O2 sats. Labs notable for WBC 15.6, hgb 12.6. plts 395. Creatinine 0.53. UA showed WBC, moderate bacteria. Urine was cultured. She was given IV epinephrine x2, solumedrol, anti-histamines, txa with no improvement. CT of her neck was done which showed no abnormality. Family history: mother has allergy to nut (walnut vs cashew) Patient History Medical History Rectal bleeding Family & Social History Social History: household members family Safety & Behavioral: Feels Safe in Current Yes Environment Tobacco & Substance use: Smoking Status Never smoker alcohol intake frequency a few times a month Substance Use Type does not use Meds Home Medications and Allergies Home Medications Medication Instructions Recorded Confirmed Type cetirizine 10 mg tablet 10 mg PO DAILY #10 tab 04/13/22 04/15/22 Rx epinephrine 0.3 mg/0.3 mL 0.3 mg (0.3 mL) IM Q5-15M PRN #2 ea 04/13/22 04/15/22 Rx injection, auto-injector hydroxyzine HCl 10 mg tablet 10 mg PO Q8H PRN #14 tab 04/13/22 04/15/22 Rx omeprazole 20 mg capsule,delayed 20 mg PO DAILY #10 cap 04/13/22 04/15/22 Rx release prednisone 20 mg tablet 40 mg PO DAILY 5 Days #10 tab 04/13/22 04/15/22 Rx Allergies Allergy/AdvReac Type Severity Reaction Status Date / Time pistachio nut Allergy Severe Anaphylaxis Verified 04/15/22 08:57 Review of Systems Review of Systems Narrative: 14 systems reviewed and negative aside from what is noted in HPI Exam Vital Signs (past 8 hours): - 04/15/22 08:38 04/15/22 09:26 04/15/22 09:30 Temperature 98.6 F Pulse Rate 85 77 81 Respiratory Rate 22 16 20 Blood Pressure 137/71 121/61 121/61 Pulse Oximetry 98 99 98 04/15/22 09:45 04/15/22 10:00 04/15/22 10:15 Temperature Pulse Rate 74 79 76 Respiratory Rate 19 19 20 Blood Pressure 120/61 125/66 128/65 Pulse Oximetry 98 98 98 04/15/22 10:30 04/15/22 10:42 04/15/22 10:45 Temperature Pulse Rate 73 77 79 Respiratory Rate 19 20 15 Blood Pressure 127/61 133/65 133/61 Pulse Oximetry 98 97 97 04/15/22 11:00 04/15/22 11:19 04/15/22 11:30 Temperature Pulse Rate 79 80 81 Respiratory Rate 19 23 18 Blood Pressure 126/60 141/79 H 145/75 H Pulse Oximetry 99 97 97 04/15/22 11:45 04/15/22 12:00 04/15/22 12:34 Temperature 97.3 F L Pulse Rate 87 84 92 H Respiratory Rate 13 12 22 Blood Pressure 152/78 H 140/68 Pulse Oximetry 97 97 98 04/15/22 12:40 Temperature Pulse Rate Respiratory Rate Blood Pressure Pulse Oximetry 98 Oxygen Delivery Method Room Air Oxygen Flow Rate 0 Narrative Exam Narrative: GEN: no acute distress HEENT: moist mucous membranes, back of throat no erythema, face slightly puffy with scattered rash, lips mildly swollen, tongue mildly swollen, voice hoarse NECK: trachea midline, no JVD PULM: clear bilaterally, no wheezes, rhonchi, rales CV: regular rate and rhythm, no murmurs ABD: soft, nontender, nondistended, no organomegaly, normal bowel sounds EXT: warm and well perfused, with no edema NEURO: awake, alert oriented, no focal deficits Objective Labs Result Diagrams: 04/15/22 11:54 04/15/22 11:54 Labs: Laboratory Results - last 24 hr 04/15/22 04/15/22 04/15/22 11:11 11:54 11:54 WBC 15.6 H RBC 4.80 Hgb 12.6 Hct 38.3 MCV 79.9 L MCH 26.2 MCHC 32.8 RDW 13.9 Plt Count 395 Neut % (Auto) 79.4 H Lymph % (Auto) 16.5 L [place] % (Auto) 3.3 Eos % (Auto) 0.2 L Baso % (Auto) 0.6 Neut # (Auto) 33172 H Lymph # (Auto) 2600 [place] # (Auto) 500 Eos # (Auto) 0 Baso # (Auto) 100 Sodium 139 Potassium 4.1 Chloride 107 Carbon Dioxide 24 BUN 9 Creatinine 0.53 Estimated GFR > 60 BUN/Creatinine Ratio 17.0 Glucose 199 H Calcium 8.2 L Total Bilirubin 0.2 AST 25 ALT 47 H Alkaline Phosphatase 57 Total Protein 7.4 Albumin 4.0 Globulin 3.4 Albumin/Globulin Ratio 1.2 Urine RBC Urine WBC Ur Squamous Epith Cells Amorphous Sediment Urine Bacteria Ur Culture Indicated? SARS-CoV-2 (PCR) Negative 04/15/22 12:04 WBC RBC Hgb Hct MCV MCH MCHC RDW Plt Count Neut % (Auto) Lymph % (Auto) [place] % (Auto) Eos % (Auto) Baso % (Auto) Neut # (Auto) Lymph # (Auto) [place] # (Auto) Eos # (Auto) Baso # (Auto) Sodium Potassium Chloride Carbon Dioxide BUN Creatinine Estimated GFR BUN/Creatinine Ratio Glucose Calcium Total Bilirubin AST ALT Alkaline Phosphatase Total Protein Albumin Globulin Albumin/Globulin Ratio Urine RBC None seen Urine WBC 30-100/hpf H Ur Squamous Epith Cells 1-5 /hpf Amorphous Sediment 2+ Urine Bacteria Moderate (10-30) H Ur Culture Indicated? Specimen cultured SARS-CoV-2 (PCR) Assessment & Plan Assessment & Plan narrative: Ms. Booker is a 26W with pmh of pistachio allergies presenting with multiple episodes of lip swelling/tingling, tongue swelling, odynophagia. 1. Presumed angioedema -patient has not had any skin, pruritic, urticarial symptoms, while her first symptom seemed ot improve with epi, this episode has not had much change -this rasises possibility of bradykinin mediated angioedema -other possibility is adult onset food allergy -currently she is hemodynamically stable, managing secretions, and not short of breath -respiratory status closely monitored -for treatment will continue steroids and anti-histamines -most common bradykinin mediated angioedema in her case would likely be hereditary angioedema -check complement c4, and check c1 esterase inhibitor -probably will benefit from allergy referral as outpatient -due to odynophagia check strep and mono CODE: Full Proxy: Marianne JuniorLambert, father I have utilized all available resources to reconcile the patient's home medications Time Spent With Patient Critical Care time: I spent a total of [] minutes of critical care time on this patient's care today; this time is exclusive of procedural time. Quality MIPS - Admit I confirm the patient?s Advance Care Plan is present, Code status is documented, Surrogate decision maker is in patient?s record [If Yes, STOP here]: Yes
--- NOTE | 2022-04-15 13:22 | PC.NURSE ---
Admit note: Patient admitted to room 223 from ED. Awake, alert, and pleasantly cooperative. Independently ambulated from gurney to bed. VSS and afebrile. Oriented to room, environment, and plan of care. Rachelle (Mom) at bedside, providing supportive care. Speaking in full sentences, no drooling, reports pain with swallowing which causes difficulty. No difficulty breathing. Calls appropriately for staff assist.
[2022-04-15 13:27] LABS: Monotest Negative (Negative)
[2022-04-15] MEDS: LORATADINE 10 MG TABLET PO (20:49)
[2022-04-16] VITALS: O2SAT 98
[2022-04-16 04:00] VITALS: O2SAT 99
[2022-04-16 05:00] VITALS: BP 131/71; PULSE 76; RESP 16; TEMP 36.6; O2SAT 99
[2022-04-16 05:13] LABS: Add Manual Diff / Slide Review NO; Basophils Absolute Auto 100 /uL (0-100); Basophils Percent Auto 0.8 % (0-2); Eosinophils Absolute Auto 0 /uL (0-450); Eosinophils Percent Auto 0.1 % (2-4); Hematocrit 34.2 % (36-46); Hemoglobin 11.5 g/dL (12.0-16.0); Lymphocytes Absolute Auto 3200 /uL (1100-4500); Mean Corpuscular HGB Conc 33.6 % (30-36); Mean Corpuscular Hemoglobin 26.6 PG (26-34); Mean Corpuscular Volume 79.2 fL (80-100); Monocytes Absolute Auto 1200 /uL (0-900); Monocytes Percent Auto 6.8 % (3-14); Neutrophils Absolute Auto 12300 /uL (1500-7000); Neutrophils Percent Auto 73.3 % (50-75); Platelet Count 407 X10^3/uL (150-400); Red Blood Cell Count 4.32 X10^6/uL (4.0-5.2); Red Cell Distribution Width 13.7 % (11.6-14.8); White Blood Cell Count 16.9 X10^3/uL (4.5-11.0)
[2022-04-16 05:16] LABS: BUN Creatinine Ratio 21.7 (6-22); Blood Urea Nitrogen 13 mg/dL (7-17); Calcium 8.1 mg/dL (8.4-10.2); Carbon Dioxide 24 mmol/L (22-32); Chloride 106 mmol/L (98-107); Estimated Glomerular Filt Rate > 60 mL/min (>60); Glucose 165 mg/dL (70-100); HEMOLYSIS < 15 (0-50); Potassium 4.1 mmol/L (3.4-5.1); Sodium 137 mmol/L (137-145)
--- NOTE | 2022-04-16 06:00 | PC.NURSE ---
Shift note Patient had uneventful night, vital signs are stable and within acceptable limits. Denies any pain/discomfort. No acute cardiorespiratory distress noted. Maintained on IV fluid hydration and ambulatory and was able to use the bathroom independently.
[2022-04-16 08:00] VITALS: BP 147/87; PULSE 71; RESP 22; TEMP 36.1; O2SAT 98
[2022-04-16 08:41] VITALS: O2SAT 98
[2022-04-16 08:53] VITALS: O2SAT 98
[2022-04-16] MEDS: LORATADINE 10 MG TABLET PO (09:04)
[2022-04-16] MEDS: predniSONE 20 MG TABLET 40 MG PO (09:07)
--- NOTE | 2022-04-16 09:14 | P.DS_ITS ---
History of Present Illness History of Present Illness Date Patient Seen: 04/16/22 Time Patient Seen: 09:14 Chief complaint: sob possiable food allergy tounge throat swollen Narrative: History of Present Illness History of Present Illness Date Patient Seen: 04/15/22 Time Patient Seen: 12:00 Chief complaint: sob possiable food allergy tounge throat swollen Narrative: Ms. 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 She has not had any further issues with allergies to foods, or food intolerance, or other allergies that she is aware of. She has eaten many different types of nuts since that episode. She presented to the hospital a few days ago for lip, tongue swelling, throat swelling. She felt her lips were tingly. She noted about 1-2 hours before symptoms started she ate a peanut b utter and honey sandwich, she then went to bed. She came in to the ED and was given epi, steroids, anti-histamine. She felt improved and went home. She does think her symptoms essentially resolved. She then noted yesterday she drank some almond milk and had tingly lips. She switched to water and symptoms resolved. Then last night about 830p she had dinner, which afterwards she found out was cooked with peanut oil. She went to bed and then woke up this AM with tongue swelling, difficulty speaking, difficulty swallowing due to sore throat. She has no fevers/chills. no shortness of breath. no dizziness, no lightheadedness, or chest pain. No dysuria In the ED workup was done, vitals notable for being afebrile, normal heart rate and normal O2 sats. Labs notable for WBC 15.6, hgb 12.6. plts 395. Creatinine 0.53. UA showed WBC, moderate bacteria. Urine was cultured. She was given IV epinephrine x2, solumedrol, anti-histamines, txa with no improvement. CT of her neck was done which showed no abnormality. Family history: mother has allergy to nut (walnut vs cashew) Discharge Providers Provider Date of admission: 04/15/22 12:06 Discharge Date: 04/16/22 Primary care physician: Doctor Kim MD Consults: N/A Discharge provider: Luis Diaz DO Summary Hospital Course Discharge Diagnosis: POSSIBLE ANGIOEDEMA VERSUS ALLERGIC REACTION. POSSIBLE ALLERGY TO NUT SUSPECTED. REACTIVE LEUKOCYTOSIS; DUE TO STEROID THERAPY REACTIVE HYPERGLYCEMIA. FURTHER WORKUP OUTPATIENT IF INDICATED OBESITY. LIFESTYLE CHANGES RECOMMENDED THROMBOCYTOSIS. REACTIVE LIKELY ANEMIA. CONSIDER VITAMIN DEFICIENCY. ADDITIONAL WORKUP OUTPATIENT Hospital Course: THIS IS A 26-YEAR-OLD FEMALE WHO WAS ADMITTED TO THE HOSPITAL DUE TO POSSIBLE ALLERGIC REACTION TO FOOD PRODUCTS. PATIENT HAD ALLERGY TO STATUS SHOW REPORTED IN THE PAST. SHE REPORTED EATING FOOD PRODUCTS CONTAINING SIMILAR PRODUCTS THE NEXT MORNING AFTER EATING SHE STARTED HAVING SOME SWELLING LIPS AND OTHER SYMPTOMS WHICH WERE WORRISOME THERE WERE REPORTED SHORTNESS OF BREATH / DIFFICULTY BREATHING. SHE CAME TO THE ER FOR FURTHER EVALUATION. SHE WAS TREATED IN THE ER AND ADMITTED FOR FURTHER EVALUATION OVERNIGHT. SHE HAS BEEN DOING WELL SINCE ADMISSION. NO DIFFICULTY BREATHING. VITAL SIGNS BEEN FAIRLY STABLE. SHE REPORTED THAT SHE HAS A PRIOR ORDER FOR AN EPI PEN BUT NOT PICKED UP YET FROM HER PHARMACY DUE TO BEING THE WEEKEND. IN ANY CASE SHE FEELS THAT SHE IS BACK TO BASELINE AT THIS TIME. SHE WOULD LIKE TO SEE AN MIXING TUMBLER OPERATOR HOWEVER THIS WILL HAVE TO BE DONE OUTPATIENT. HER PCP WILL NEED TO REFER HER TO THE APPROPRIATE SERVICE ON FOLLOW-UP VISIT. SHE WILL BE DISCHARGED ON A 3 DAY COURSE OF PREDNISONE. SHE ALSO WILL BE STARTED ON PEPCID. HER PPI HAS BEEN DISCONTINUED FOR NOW. SHE WAS STRONGLY RECOMMENDED TO REFRAIN FROM EATING PRODUCTS CONTAINING NUTS ADDITIONAL MANAGEMENT PER OUTPATIENT PROVIDERS. Status at Discharge Cognitive/behavioral status at discharge: oriented Functional status at discharge: independent ambulation Overall status at discharge: patient is back to baseline Time Spent with Patient Time spent: Greater than 30 minutes Exam Vital Signs (past 8 hours): - 04/16/22 04:00 04/16/22 05:00 04/16/22 08:00 Temperature 97.9 F 96.9 F L Pulse Rate 76 71 Respiratory Rate 16 22 Blood Pressure 131/71 147/87 H Pulse Oximetry 99 99 98 04/16/22 08:41 04/16/22 08:53 Temperature Pulse Rate Respiratory Rate Blood Pressure Pulse Oximetry 98 98 Oxygen Delivery Method Room Air Oxygen Flow Rate 0 Const General: cooperative and healthy appearing [facility] Head: normal to inspection and normocephalic Eyes General: appearance normal, both eyes and all related structures Neck Neck: normal visual inspection and full ROM Chest Chest: normal inspection of the chest and normal palpation of entire chest wall Resp Effort & Inspection: normal respiratory effort and able to speak in complete sentences Cardio Palpation: normal PMI Rate: regular rate GI Inspection: normal to inspection Skin General: no rashes or lesions noted and turgor normal Neuro Cranial Nerves: CN's II-XI intact bilaterally and sense of smell intact Extrem General: normal to inspection and full ROM Psych Appearance: grossly normal and well kempt Objective Labs Result Diagrams: 04/16/22 04:49 04/16/22 04:49 Labs: Laboratory Results - last 24 hr 04/15/22 04/15/22 04/15/22 11:11 11:54 11:54 WBC 15.6 H RBC 4.80 Hgb 12.6 Hct 38.3 MCV 79.9 L MCH 26.2 MCHC 32.8 RDW 13.9 Plt Count 395 Neut % (Auto) 79.4 H Lymph % (Auto) 16.5 L [place] % (Auto) 3.3 Eos % (Auto) 0.2 L Baso % (Auto) 0.6 Neut # (Auto) 50856 H Lymph # (Auto) 2600 [place] # (Auto) 500 Eos # (Auto) 0 Baso # (Auto) 100 Sodium 139 Potassium 4.1 Chloride 107 Carbon Dioxide 24 BUN 9 Creatinine 0.53 Estimated GFR > 60 BUN/Creatinine Ratio 17.0 Glucose 199 H Calcium 8.2 L Total Bilirubin 0.2 AST 25 ALT 47 H Alkaline Phosphatase 57 Total Protein 7.4 Albumin 4.0 Globulin 3.4 Albumin/Globulin Ratio 1.2 Urine RBC Urine WBC Ur Squamous Epith Cells Amorphous Sediment Urine Bacteria Ur Culture Indicated? SARS-CoV-2 (PCR) Negative Monoscreen 04/15/22 04/15/22 04/16/22 12:04 13:10 04:49 WBC 16.9 H RBC 4.32 Hgb 11.5 L Hct 34.2 L MCV 79.2 L MCH 26.6 MCHC 33.6 RDW 13.7 Plt Count 407 H Neut % (Auto) 73.3 Lymph % (Auto) 19.0 L [place] % (Auto) 6.8 Eos % (Auto) 0.1 L Baso % (Auto) 0.8 Neut # (Auto) 30310 H Lymph # (Auto) 3200 [place] # (Auto) 1200 H Eos # (Auto) 0 Baso # (Auto) 100 Sodium Potassium Chloride Carbon Dioxide BUN Creatinine Estimated GFR BUN/Creatinine Ratio Glucose Calcium Total Bilirubin AST ALT Alkaline Phosphatase Total Protein Albumin Globulin Albumin/Globulin Ratio Urine RBC None seen Urine WBC 30-100/hpf H Ur Squamous Epith Cells 1-5 /hpf Amorphous Sediment 2+ Urine Bacteria Moderate (10-30) H Ur Culture Indicated? Specimen cultured SARS-CoV-2 (PCR) Monoscreen Negative 04/16/22 04:49 WBC RBC Hgb Hct MCV MCH MCHC RDW Plt Count Neut % (Auto) Lymph % (Auto) [place] % (Auto) Eos % (Auto) Baso % (Auto) Neut # (Auto) Lymph # (Auto) [place] # (Auto) Eos # (Auto) Baso # (Auto) Sodium 137 Potassium 4.1 Chloride 106 Carbon Dioxide 24 BUN 13 Creatinine 0.60 Estimated GFR > 60 BUN/Creatinine Ratio 21.7 Glucose 165 H Calcium 8.1 L Total Bilirubin AST ALT Alkaline Phosphatase Total Protein Albumin Globulin Albumin/Globulin Ratio Urine RBC Urine WBC Ur Squamous Epith Cells Amorphous Sediment Urine Bacteria Ur Culture Indicated? SARS-CoV-2 (PCR) Monoscreen [facility] Medical History Rectal bleeding Social History household members: family Smoking Status: Never smoker Discharge Plan Discharge Plan Patient Disposition: Home Discharge orders & Medications Prescriptions: New prednisone 20 mg Tablet 40 mg PO DAILY Qty: 6 0RF famotidine [Pepcid] 40 mg tablet 40 mg PO DAILY Qty: 60 0RF Continued cetirizine 10 mg tablet 10 mg PO DAILY Qty: 10 0RF epinephrine 0.3 mg/0.3 mL auto-injector 0.3 mg IM Q5-15M PRN (Reason: anaphylaxis) Qty: 2 0RF Rx Instructions: do not exceed 3 doses per episode hydroxyzine HCl 10 mg tablet 10 mg PO Q8H PRN (Reason: itching) Qty: 14 0RF Discontinued prednisone 20 mg tablet 40 mg PO DAILY 5 Days Qty: 10 0RF omeprazole 20 mg capsule,delayed release(DR/EC) 20 mg PO DAILY Qty: 10 0RF Follow up/Referrals: Miscellaneous,Doctor, [Primary Care Provider] - Diet/Activity/Treatments Diet: Diet as Tolerated Skin/Wound/Dressing Care Report to your healthcare provider any signs of infection, such as:: chills, fever and increased pain Discharge Data Primary Care Provider: Иринаcelldc,Doctor Attending Provider: Bandar Alexander
--- NOTE | 2022-04-16 10:27 | PC.NURSE ---
Discharge note: Discharge instructions given to patient, discussed importance of F/U with PMD, signs of worsening allergic symptoms, new medications including special instruction to meds as needed for Anaphylaxis. Patient verbalized understanding of instruction. Home via private vehicle in stable condition.
== END 2022-04-16 11:14 | disposition home or self-care (01) ==
LOC: ED 11:57 → AC 12:07
PROVIDERS: Admitting Provider Internal Medicine; Emergency Provider Emergency Medicine; Referring Provider Emergency Medicine; Visit Provider Internal Medicine
DX: T78.40XA Allergy, unspecified, initial encounter (principal); R13.10 Dysphagia, unspecified; Z91.018 Allergy to other foods; Z20.822 Contact with and (suspected) exposure to COVID-19
CPT/HCPCS: 36415; 70490; 80048; 80053; 81015; 81025; 85025; 86160; 86318; 87086; 87635; 94760; 96365; 96372; 96375; 99284; C9803; G0378; J0171; J1200; J1885; J2930

== ENCOUNTER 2022-07-10 16:46 | Emergency (ER) | payer OTHER, SELFPAY ==
[2022-04-15 12:35] VITALS: BMI 50.1
[2022-07-10 17:09] VITALS: BP 151/77; PULSE 90; RESP 16; TEMP 36.1; O2SAT 99; BMI 48.6
== END 2022-07-10 22:01 | disposition left against medical advice (07) ==
PROVIDERS: Emergency Provider Emergency Medicine; PCP Family Medicine
CPT/HCPCS: 99281

== ENCOUNTER 2022-12-08 11:53 | Emergency (ER) | payer MEDICAID, OTHER, SELFPAY ==
[2022-04-15 12:35] VITALS: BMI 50.1
[2022-12-08 11:59] VITALS: BP 145/73; PULSE 73; RESP 18; TEMP 36.8; O2SAT 97; BMI 46.5
[2022-12-08 12:15] LABS: Add Manual Diff / Slide Review NO; Basophils Absolute Auto 100 /uL (0-100); Basophils Percent Auto 0.9 % (0-2); Eosinophils Absolute Auto 200 /uL (0-450); Eosinophils Percent Auto 1.9 % (2-4); Hematocrit 38.2 % (36-46); Hemoglobin 12.4 g/dL (12.0-16.0); Lymphocytes Absolute Auto 3400 /uL (1100-4500); Lymphocytes Percent Auto 34.6 % (25-40); Mean Corpuscular HGB Conc 32.4 % (30-36); Mean Corpuscular Hemoglobin 25.9 PG (26-34); Mean Corpuscular Volume 79.9 fL (80-100); Monocytes Absolute Auto 500 /uL (0-900); Monocytes Percent Auto 5.2 % (3-14); Neutrophils Absolute Auto 5600 /uL (1500-7000); Neutrophils Percent Auto 57.4 % (50-75); Platelet Count 381 X10^3/uL (150-400); Red Blood Cell Count 4.78 X10^6/uL (4.0-5.2); Red Cell Distribution Width 13.5 % (11.6-14.8); White Blood Cell Count 9.7 X10^3/uL (4.5-11.0)
--- NOTE | 2022-12-08 13:39 | DI.US.S_ITS ---
PROCEDURE: US PELVIC COMPLETE INDICATIONS: EXCESSIVE BLEEDING DURING MENSES TECHNIQUE: Real-time scanning was performed of the pelvic organs, with image documentation. Additional endovaginal scanning was necessary due to incomplete visualization of the adnexal and endometrial structures by transabdominal scanning. COMPARISON: [facility], , US PELVIC COMPLETE, 02/01/2021, 13:09. FINDINGS: Uterus: Uterus is anteverted and normal in size at 7.8 x 4.3 x 3.9 cm. The myometrium is heterogenous. The endometrium measures 7.8 mm combined thickness. Heterogenous thickening and lower uterine segment measures 10 mm. Endocervical fluid reflects blood products Ovaries: Nonvisualized Other: No pathologic free abdominal or pelvic fluid. IMPRESSION: Slightly thickened endometrium, particularly in the lower uterine segment. Nonvisualized ovaries Approved by: Kp Bustos M.D. on 12/08/2022 at 13:41
--- NOTE | 2022-12-08 13:40 | ED.FEMALEGU ---
HPI - Female Genitourinary General Chief complaint: Urogenital-Female Stated complaint: Menstral Cycle, Blood Clots, Hx Anemia Time Seen by Provider: 12/08/22 13:02 Source: patient Mode of arrival: Ambulatory History of Present Illness HPI Narrative: Patient is a 27-year-old female who presents with heavy menstrual cycle. She states that she started her menstrual cycle in the 4th grade she is had heavy periods for a long time. The last 3-4 days she has had very heavy menstrual. Going through 3 super tampons in 1 hour. She is having bad cramps as well. She says her blood clots have gotten a lot bigger. She is never had blood clots the size. She we used to be on control she is currently not on control. She denies any dizziness lightheadedness shortness of breath chest pain or syncope. Related Data Previous Rx's Medication Instructions Recorded cetirizine 10 mg tablet 10 mg PO DAILY allergic reaction 04/13/22 #10 tabs epinephrine 0.3 mg/0.3 mL 0.3 mg (0.3 mL) IM Q5-15M PRN 04/13/22 injection, auto-injector anaphylaxis #2 ea hydroxyzine HCl 10 mg tablet 10 mg PO Q8H PRN itching #14 tabs 04/13/22 famotidine 40 mg tablet (Pepcid) 40 mg PO DAILY #60 tabs 04/16/22 prednisone 20 mg tablet 40 mg PO DAILY #6 tabs 04/16/22 medroxyprogesterone 10 mg tablet 10 mg PO DAILY #60 tabs 12/08/22 (Provera) Allergies Allergy/AdvReac Type Severity Reaction Status Date / Time nut - unspecified Allergy Severe Anaphylaxis Verified 12/08/22 12:04 Review of Systems Review of Systems ROS Unobtainable: All systems reviewed & are unremarkable except as noted in HPI and below Patient History Medical History (Updated 12/08/22 @ 14:52 by Louisa Thrasher DO) Rectal bleeding Surgical History (Updated 06/21/22 @ 06:59 by Edda Chacon CMA) H/O colonoscopy (~09/21/21) alcohol intake frequency: holidays/special occasions only Substance Use Type: marijuana Exam Initial Vital Signs Initial Vital Signs: Vital Signs Temperature 98.2 F 12/08/22 11:59 Pulse Rate 73 12/08/22 11:59 Respiratory Rate 18 12/08/22 11:59 Blood Pressure 145/73 H 12/08/22 11:59 Pulse Oximetry 97 12/08/22 11:59 Oxygen Delivery Method 12/08/22 11:59 GENERAL: Alert pleasant 27-year-old female BMI 46 and in no acute distress. CARDIOVASCULAR: Regular rate and rhythm without murmurs, rubs or gallops. RESPIRATORY: Breath sounds equal bilaterally, no wheezes rales or rhonchi. ABDOMEN: Soft, mildly low over suprapubic pain EXTREMITIES: Normal range of motion, no clubbing or edema. Neurovascularly intact NEUROLOGICAL: Alert and oriented x4. SKIN: Warm, dry, no laceration, no petechiae, no rashes or lesions. Course Orders Ordered: ED Orders 12/08/22 12:08 CBC Auto Diff [Complete Blood Count AUTO DIFF] Stat 12/08/22 13:39 US pelvic complete Stat Discontinued Medications Ketorolac Tromethamine (Ketorolac 30 Mg/Ml Vial) 30 mg IM NOW ONE Stop: 12/08/22 13:55 Last Admin: 12/08/22 14:18 Dose: 30 mg Documented By: ROSANNA Medroxyprogesterone Acetate (Medroxyprogesterone Acetate 10 Mg Tablet) 20 mg PO NOW ONE Stop: 12/08/22 14:53 Last Admin: 12/08/22 15:19 Dose: 20 mg Documented By: ROSANNA(2) Vital Signs Vital signs: Vital Signs - 8 hr 12/08/22 11:59 12/08/22 14:31 12/08/22 15:08 Temperature 98.2 F Pulse Rate 73 71 68 Respiratory Rate 18 18 Blood Pressure 145/73 H 133/96 H Pulse Oximetry 97 98 100 Oxygen Delivery Method Room Air Room Air Room Air MDM - Female Genitourinary Lab Data Result diagrams: 12/08/22 12:08 Labs: Lab Results 12/08/22 Range/Units 12:08 WBC 9.7 (4.5-11.0) X10^3/uL RBC 4.78 (4.0-5.2) X10^6/uL Hgb 12.4 (12.0-16.0) g/dL Hct 38.2 (36-46) % MCV 79.9 L (80-100) fL MCH 25.9 L (26-34) PG MCHC 32.4 (30-36) % RDW 13.5 (11.6-14.8) % Plt Count 381 (150-400) X10^3/uL Neut % (Auto) 57.4 (50-75) % Lymph % (Auto) 34.6 (25-40) % [place] % (Auto) 5.2 (3-14) % Eos % (Auto) 1.9 L (2-4) % Baso % (Auto) 0.9 (0-2) % Neut # (Auto) 5600 (5106-7038) /uL Lymph # (Auto) 3400 (4731-0167) /uL [place] # (Auto) 500 (0-900) /uL Eos # (Auto) 200 (0-450) /uL Baso # (Auto) 100 (0-100) /uL Point of Care Testing Test Results Negative Urine Dip Bedside Urine Glucose Negative Bedside Urine Bilirubin - Negative Bedside Urine Ketone - Negative Urine Specific [place] 1.015 Bedside Urine Occult Blood +++ Bedside Urine pH 6.5 Bedside Urine Protein - Negative Bedside Urine Urobilinogen - Negative Bedside Urine Nitrite - Negative Bedside Urine Leukocytes - Negative Esterase Imaging Data US - BINDER COVERSTITCH: Radiologist's Impression: tient: Jennifer Booker MR#: [id number] : 1995 Acct:[id number] Age/Sex: 27 / F Date of Service: 12/08/22 Loc: ED Accession Number: [id number] ?? Procedure: US pelvic complete Ordering Provider: Louisa Thrasher D.O. PROCEDURE:? US PELVIC COMPLETE ? INDICATIONS:? EXCESSIVE BLEEDING DURING MENSES ? TECHNIQUE:? Real-time scanning was performed of the pelvic organs, with image documentation.? Additional endovaginal scanning was necessary due to incomplete visualization of the adnexal and endometrial structures by transabdominal scanning.? ? COMPARISON:[facility], US PELVIC COMPLETE, 02/01/2021, 13:09. ? FINDINGS:? ?? Uterus:? Uterus is anteverted and normal in size at 7.8 x 4.3 x 3.9 cm. The myometrium is heterogenous. ? The endometrium measures 7.8 mm combined thickness.? Heterogenous thickening and lower uterine segment measures 10 mm.? Endocervical fluid reflects blood products ? Ovaries:? Nonvisualized ? Other:? No pathologic free abdominal or pelvic fluid. ? ? IMPRESSION:? Slightly thickened endometrium, particularly in the lower uterine segment.? Nonvisualized ovaries ? Approved by: Kp Bustos M.D. on 12/08/2022 at 13:41? MDM Narrative Medical decision making narrative: Patient is 27-year-old female history of menorrhagia presenting today with excessive bleeding for the last 3-4 days. She is hemodynamically stable, no evidence of tachycardia or hypotensive. Ultrasound shows thickened endometrium but no obvious uterine fibroids. Hemoglobin is 12.7 hematocrit 38.2 MCV 79.9. No evidence of significant anemia with 3-4 days of heavy bleeding. She is given a dose of Toradol for pain control here in the emergency department. Will start her on Provera taper to help with her heavy bleeding. Recommend outpatient follow-up with fan blade aligner or her PCP. Discharge Plan Departure Patient Disposition: Home Clinical Impression: Menorrhagia Instructions: Heavy Menstrual Bleeding, DI for Menorrhagia Activity Restrictions/Additional Instructions: *You have been diagnosed with heavy vaginal bleeding *What to do: At this time please take a medication to stop the bleeding. You will need to follow-up with fan blade aligner or your PCP for further management. *Continue to take medications as directed Provera 2 tablets every 4 hours for 1-2 days, then every 6 hours for 1-2 days then every 8 hours for 1-2 days then every 12 hours for 1 to once daily for 7 days *Follow up with your primary care provider in 2-3 days or call [phone] Follow-up and call fan blade aligner to schedule appointment *Return to ER if you should have increased vaginal bleeding increased pain dizziness lightheadedness or any new, worsening or concerning symptoms Prescriptions: New medroxyprogesterone [Provera] 10 mg tablet 10 mg PO DAILY Qty: 60 0RF Rx Instructions: 2 tabs q4hrs x 48 hr. 2 tab q6hr x 48hr. 2 tab q8hr x 48hr. 2 tab q12hr x 48hr. 2 tab qd x 7 days No Action prednisone 20 mg Tablet 40 mg PO DAILY Qty: 6 0RF famotidine [Pepcid] 40 mg tablet 40 mg PO DAILY Qty: 60 0RF cetirizine 10 mg tablet 10 mg PO DAILY Qty: 10 0RF epinephrine 0.3 mg/0.3 mL auto-injector 0.3 mg IM Q5-15M PRN (Reason: anaphylaxis) Qty: 2 0RF Rx Instructions: do not exceed 3 doses per episode hydroxyzine HCl 10 mg tablet 10 mg PO Q8H PRN (Reason: itching) Qty: 14 0RF Referrals: Olinda Niño MD [Physician] - Rosa Lunsford MD [Physician] - Valentín Velez MD [Primary Care Provider] - Pablo Larsen MD [Physician] - Stand Alone Forms: Patient Portal/API
[2022-12-08] MEDS: KETOROLAC 30 MG/ML VIAL IM (14:18)
[2022-12-08 14:31] VITALS: PULSE 71; RESP 18; O2SAT 98
[2022-12-08 15:08] VITALS: BP 133/96; PULSE 68; O2SAT 100
[2022-12-08] MEDS: MEDROXYPROGESTERONE ACETATE 10 MG TABLET 20 MG PO (15:19)
== END 2022-12-08 15:20 | disposition home or self-care (01) ==
PROVIDERS: Emergency Provider Emergency Medicine; PCP Family Medicine
DX: N92.0 Excessive and frequent menstruation with regular cycle (principal)
CPT/HCPCS: 76830; 76856; 81003; 81025; 85025; 96372; 99283; J1885

== ENCOUNTER 2022-12-24 21:29 | Emergency (ER) | payer MEDICAID, OTHER, SELFPAY ==
[2022-04-15 12:35] VITALS: BMI 50.1
[2022-12-24 21:42] VITALS: BP 148/81; PULSE 91; RESP 18; TEMP 36.3; O2SAT 100
[2022-12-24 22:57] LABS: Add Manual Diff / Slide Review NO; Basophils Absolute Auto 100 /uL (0-100); Basophils Percent Auto 0.6 % (0-2); Eosinophils Absolute Auto 100 /uL (0-450); Eosinophils Percent Auto 1.4 % (2-4); Hematocrit 35.4 % (36-46); Hemoglobin 11.4 g/dL (12.0-16.0); Lymphocytes Absolute Auto 3400 /uL (1100-4500); Lymphocytes Percent Auto 36.2 % (25-40); Mean Corpuscular HGB Conc 32.3 % (30-36); Mean Corpuscular Hemoglobin 25.7 PG (26-34); Mean Corpuscular Volume 79.7 fL (80-100); Monocytes Absolute Auto 400 /uL (0-900); Monocytes Percent Auto 4.1 % (3-14); Neutrophils Absolute Auto 5400 /uL (1500-7000); Neutrophils Percent Auto 57.7 % (50-75); Platelet Count 399 X10^3/uL (150-400); Red Blood Cell Count 4.45 X10^6/uL (4.0-5.2); Red Cell Distribution Width 13.3 % (11.6-14.8); White Blood Cell Count 9.3 X10^3/uL (4.5-11.0)
--- NOTE | 2022-12-24 23:54 | ED_ITS ---
HPI - General Adult General Chief complaint: Vaginal Bleeding Stated complaint: super heavy vag bleeding Time Seen by Provider: 12/24/22 23:51 Source: patient Mode of arrival: Ambulatory History of Present Illness HPI narrative: 27-year-old woman complains of menometrorrhagia that has been an ongoing issue was seen here on the with ultrasound done medroxyprogesterone taper started, was seen in follow-up with her primary care doctor who gave her shot of Depo- Provera which has not been as effective as the medroxyprogesterone in stopping bleeding. She is not having fevers or chills. She does describe severe cramps. She notes that all of these issues have been ongoing for a number of years and she has a follow-up appointment with OBGYN on January 14. She reports no dysuria, diarrhea, headache, chest pain, palpitations, dizziness or lightheadedness. Related Data Previous Rx's Medication Instructions Recorded cetirizine 10 mg tablet 10 mg PO DAILY allergic reaction 04/13/22 #10 tabs epinephrine 0.3 mg/0.3 mL 0.3 mg (0.3 mL) IM Q5-15M PRN 04/13/22 injection, auto-injector anaphylaxis #2 ea hydroxyzine HCl 10 mg tablet 10 mg PO Q8H PRN itching #14 tabs 04/13/22 famotidine 40 mg tablet (Pepcid) 40 mg PO DAILY #60 tabs 04/16/22 prednisone 20 mg tablet 40 mg PO DAILY #6 tabs 04/16/22 medroxyprogesterone 10 mg tablet 10 mg PO DAILY #60 tabs 12/08/22 (Provera) medroxyprogesterone 10 mg tablet See Rx Instructions .Route 12/25/22 .COMPLEX #100 tabs naproxen 500 mg tablet 500 mg PO BID #60 tabs 12/25/22 Allergies Allergy/AdvReac Type Severity Reaction Status Date / Time nut - unspecified Allergy Severe Anaphylaxis Verified 12/08/22 12:04 Review of Systems Review of Systems Narrative: Remainder of complete review of systems is otherwise unremarkable except for that included in the HPI. Patient History Medical History (Updated 12/25/22 @ 00:09 by Bryanna Mendoza MD) Rectal bleeding Surgical History (Updated 06/21/22 @ 06:59 by Edda Chacon CMA) H/O colonoscopy (~09/21/21) Social History household members: family Smoking Status: Never smoker Smoking Status: Never smoker alcohol intake frequency: holidays/special occasions only Substance Use Type: marijuana Exam Initial Vital Signs Initial Vital Signs: Vital Signs Temperature 97.3 F L 12/24/22 21:42 Pulse Rate 91 H 12/24/22 21:42 Respiratory Rate 18 12/24/22 21:42 Blood Pressure 148/81 H 12/24/22 21:42 Pulse Oximetry 100 12/24/22 21:42 Oxygen Delivery Method 12/24/22 21:42 General: Alert appropriate in no acute distress Respiratory: Able to speak in full sentences, no obvious respiratory distress Skin: No obvious rashes, warm and dry Neurologic: Grossly intact no obvious asymmetries or abnormalities Psych: appropriate insight and affect, cooperative Course Orders Ordered: ED Orders 12/24/22 22:13 CBC Auto Diff [Complete Blood Count AUTO DIFF] Stat Vital Signs Vital signs: Vital Signs - 8 hr 12/24/22 21:42 Temperature 97.3 F L Pulse Rate 91 H Respiratory Rate 18 Blood Pressure 148/81 H Pulse Oximetry 100 Oxygen Delivery Method Room Air Medical Decision Making Lab Data 12/24/22 22:13 Labs: Lab Results 12/24/22 Range/Units 22:13 WBC 9.3 (4.5-11.0) X10^3/uL RBC 4.45 (4.0-5.2) X10^6/uL Hgb 11.4 L (12.0-16.0) g/dL Hct 35.4 L (36-46) % MCV 79.7 L (80-100) fL MCH 25.7 L (26-34) PG MCHC 32.3 (30-36) % RDW 13.3 (11.6-14.8) % Plt Count 399 (150-400) X10^3/uL Neut % (Auto) 57.7 (50-75) % Lymph % (Auto) 36.2 (25-40) % [place] % (Auto) 4.1 (3-14) % Eos % (Auto) 1.4 L (2-4) % Baso % (Auto) 0.6 (0-2) % Neut # (Auto) 5400 (5987-2175) /uL Lymph # (Auto) 3400 (4267-5018) /uL [place] # (Auto) 400 (0-900) /uL Eos # (Auto) 100 (0-450) /uL Baso # (Auto) 100 (0-100) /uL MDM Narrative Medical decision making narrative: CC: Menometrorrhagia. Is a chronic diagnosis with acute exacerbation an uncertain etiology Complicating co-morbidities: Morbid obesity Corroborating data: Data collected from: patient, Social determinants of health that may influence the patients condition: Medical records reviewed: Primary care and hospitalization notes are reviewed Differential considered: Ectopic , endometriosis, fibroids, miscarriage, menometrorrhagia. Do not suspect infection or PID at this time Exam documented above, pertinent findings include: Benign exam, hemodynamic stability Lab Test results independently reviewed as above. Pertinent findings: Hemoglobin has dropped from 12.4-11.4 over the last 18 days. Hematocrit has decreased from 38.2-35.4. Imaging studies independently reviewed: Ultrasound from December 08 reveals normal-sized uterus at 7.8 x 3.9 x 4.3 cm. Heterogeneous myometrium measuring 7.8 mm. No fibroids, polyps or other abnormalities were appreciated Treatments:oral progesterone and oral NSAID Discussion: 27-year-old woman with a lifelong history of severe menorrhagia. He had been seen in the emergency department multiple times has been on control pills was most recently given a shot of Depo. After the medroxyprogesterone taper that was started on December 08 she again had significant bleeding as soon as the progesterone was discontinued. She describes the clots this time about half the size of what they were on December 08 and before. Her H&H does indicate that she has had a slight drop in he matocrit however she is hemodynamically stable. She describes moderate amount of pain as using fairly scheduled ibuprofen and will have her discontinue this and change to scheduled Naprosyn to help with cramping and see if it influences the endometrial spiral artery is at all to decrease the bleeding. Will restart her on progesterone taper and have her continue 10 mg of progesterone orally until she is seen by OBGYN and instructed otherwise. This is in addition to the Depo-Provera shot that she did receive 4 days ago. All of this is reviewed with her, questions are answered she is safe for discharge home Disposition: see below, along with detailed discharge instructions that have been reviewed with patient as well as indications for ED re-evaluation and additional outpatient follow up Discharge Plan Departure Patient Disposition: Home Clinical Impression: Dysfunctional uterine bleeding Instructions: DI for Menorrhagia Activity Restrictions/Additional Instructions: Thank you for coming in today I am sorry that you continue to struggle with this heavy vaginal bleeding. You are not , your ultrasound earlier this month did not show dramatic abnormalities. You were treated with medroxyprogesterone and the bleeding started when she ran out of pills. You got your injection of Depo-Provera (also progesterone) but it does not seem to be effective at this time. I am going to give you another tapering prescription for the medroxyprogesterone but have you make sure you continue on at least 1 pill a day until you are seen by the md psychiatry on January 14 and get their recommendations on continued dosing. Please do make sure you are continuing with your iron tablets I am also going to have you STOP the ibuprofen and pamprin and switch to prescription strength naproxen am and pm. You can use additional tylenol during the day if you need it to help with cramping. Please make sure you keep you gynecology appointment on 01/14. Prescriptions: New medroxyprogesterone 10 mg tablet See Rx Instructions .ROUTE .COMPLEX Qty: 100 0RF Rx Instructions: 2 tabs q4hrs x 48 hr. 2 tab q6hr x 48hr. 2 tab q8hr x 48hr. 2 tab q12hr x 48hr. 2 tab qd x 7 days, then continue 1 daily for 2 more weeks naproxen 500 mg tablet 500 mg PO BID Qty: 60 1RF No Action prednisone 20 mg Tablet 40 mg PO DAILY Qty: 6 0RF famotidine [Pepcid] 40 mg tablet 40 mg PO DAILY Qty: 60 0RF medroxyprogesterone [Provera] 10 mg tablet 10 mg PO DAILY Qty: 60 0RF Rx Instructions: 2 tabs q4hrs x 48 hr. 2 tab q6hr x 48hr. 2 tab q8hr x 48hr. 2 tab q12hr x 48hr. 2 tab qd x 7 days cetirizine 10 mg tablet 10 mg PO DAILY Qty: 10 0RF epinephrine 0.3 mg/0.3 mL auto-injector 0.3 mg IM Q5-15M PRN (Reason: anaphylaxis) Qty: 2 0RF Rx Instructions: do not exceed 3 doses per episode hydroxyzine HCl 10 mg tablet 10 mg PO Q8H PRN (Reason: itching) Qty: 14 0RF Referrals: Valentín Velez MD [Primary Care Provider] - Stand Alone Forms: Patient Portal/API
[2022-12-25] MEDS: MEDROXYPROGESTERONE ACETATE 10 MG TABLET 20 MG PO (00:32)
[2022-12-25] MEDS: NAPROXEN 250 MG TABLET 500 MG PO (00:32)
[2022-12-25 00:46] VITALS: BP 131/60; PULSE 82; O2SAT 100
== END 2022-12-25 00:38 | disposition home or self-care (01) ==
PROVIDERS: Emergency Provider Emergency Medicine; PCP Family Medicine
DX: N92.1 Excessive and frequent menstruation with irregular cycle (principal)
CPT/HCPCS: 36415; 85025; 99283

== ENCOUNTER 2023-06-15 11:50 | Emergency (ER) | payer OTHER, SELFPAY ==
[2022-04-15 12:35] VITALS: BMI 50.1
[2023-06-15 12:14] VITALS: BP 155/91; PULSE 83; RESP 14; TEMP 36.4; O2SAT 98; BMI 47.2
[2023-06-15 13:21] LABS: Amorphous Sediment Urine 1+; Bacteria Urine Moderate (10-30); Culture Indicated Urine Specimen Cultured; Mucus Urine 2+ (Negative); RBC Urine 0-1/HPF (0-5/HPF); Squamous Epithelial Cell Urine 5-10 /HPF (0-5/HPF); WBC Urine 1-5/HPF (0-5/HPF)
--- NOTE | 2023-06-15 15:30 | PC.NURSE ---
Pt states she saw blood on the toilet paper once when she wiped after a bowel movement this morning. Reports she vomited once at approximately 0300 when her acid reflux woke her.
[2023-06-15 15:45] LABS: Add Manual Diff / Slide Review NO; Basophils Absolute Auto 0 /uL (0-100); Basophils Percent Auto 0.1 % (0-2); Eosinophils Absolute Auto 200 /uL (0-450); Eosinophils Percent Auto 1.7 % (2-4); Hemoglobin 12.5 g/dL (12.0-16.0); Lymphocytes Absolute Auto 3400 /uL (1100-4500); Lymphocytes Percent Auto 31.3 % (25-40); Mean Corpuscular HGB Conc 32.8 % (30-36); Mean Corpuscular Hemoglobin 25.4 PG (26-34); Mean Corpuscular Volume 77.6 fL (80-100); Monocytes Absolute Auto 500 /uL (0-900); Neutrophils Absolute Auto 6600 /uL (1500-7000); Neutrophils Percent Auto 61.9 % (50-75); Platelet Count 380 X10^3/uL (150-400); Red Cell Distribution Width 14.6 % (11.6-14.8); White Blood Cell Count 10.7 X10^3/uL (4.5-11.0)
[2023-06-15 15:46] LABS: Alanine Aminotransferase 36 IU/L (<35); Albumin 4.1 g/dL (3.5-5.0); Albumin Globulin Ratio 1.2 (1.0-2.8); Alkaline Phosphatase 54 U/L (38-126); Aspartate Aminotransferase 27 IU/L (14-36); BUN Creatinine Ratio 12.7 (6-22); Bilirubin Total 0.6 mg/dL (0.2-1.3); Blood Urea Nitrogen 8 mg/dL (7-17); Calcium 8.9 mg/dL (8.4-10.2); Carbon Dioxide 29 mmol/L (22-32); Chloride 102 mmol/L (98-107); Estimated Glomerular Filt Rate > 60 mL/min (>60); Globulin 3.4 g/dL (1.7-4.1); Glucose 101 mg/dL (70-100); HEMOLYSIS < 15 (0-50); Potassium 3.8 mmol/L (3.4-5.1); Sodium 137 mmol/L (137-145); Total Protein 7.5 g/dL (6.3-8.2)
--- NOTE | 2023-06-15 16:08 | ED_ITS ---
HPI - GI Bleed General Chief complaint: GI Bleed Stated complaint: blood in stool/stomach pain Time Seen by Provider: 06/15/23 16:08 Source: patient Mode of arrival: Family Vehicle Limitations: no limitations History of Present Illness HPI Narrative: This is a 27-year-old female with history of PCOS on no daily medications, patient has had prior EGD and colonoscopy for rectal bleeding no changes appreciated according to report. Patient states she wiped with the toilet paper today that was bright red blood. She states she is been a little constipated stools have been a little bit pebbly she sits is some pain but not really the rectum comes around from her back towards her right anterior abdomen. She denie s fevers she did have 1 episode of vomiting, no chest pain or shortness of breath. No persistent upper abdominal pain but has continued right lower quadrant tenderness. Patient denies dysuria urgency or frequency. She has not had little bit of bright red blood each time she wiped today. She states similar to prior episode in the past. She does sometimes have intermittent vaginal bleeding states they feel that is secondary to her PCOS. No new vaginal discharge. She did not feel any lumps or hemorrhoid changes in the rectal area. Denies daily medications. No surgeries. No known drug allergies. No tobacco occasional alcohol, occasional THC but no illicit. Patient notes she had some concern as she has family history of colorectal cancer on both sides of her family. EEG report from 09/21 21 shows normal esophagus, stomach and colon, no masses or polyps and no blood seen within the GI tract. No fissures, fistula external hemorrhoids or cutaneous malignancy was seen on examination. Related Data Previous Rx's Medication Instructions Recorded cetirizine 10 mg tablet 10 mg PO DAILY allergic reaction 04/13/22 #10 tabs epinephrine 0.3 mg/0.3 mL 0.3 mg (0.3 mL) IM Q5-15M PRN 04/13/22 injection, auto-injector anaphylaxis #2 ea hydroxyzine HCl 10 mg tablet 10 mg PO Q8H PRN itching #14 tabs 04/13/22 famotidine 40 mg tablet (Pepcid) 40 mg PO DAILY #60 tabs 04/16/22 prednisone 20 mg tablet 40 mg PO DAILY #6 tabs 04/16/22 medroxyprogesterone 10 mg tablet 10 mg PO DAILY #60 tabs 12/08/22 (Provera) medroxyprogesterone 10 mg tablet See Rx Instructions .Route 12/25/22 .COMPLEX #100 tabs naproxen 500 mg tablet 500 mg PO BID #60 tabs 12/25/22 Allergies Allergy/AdvReac Type Severity Reaction Status Date / Time nut - unspecified Allergy Severe Anaphylaxis Verified 06/15/23 12:20 Review of Systems Review of Systems ROS Unobtainable: All systems reviewed & are unremarkable except as noted in HPI and below Patient History Medical History Rectal bleeding Surgical History H/O colonoscopy (~09/21/21) Social History household members: family Smoking Status: Never smoker Smoking Status: Never smoker alcohol intake frequency: a few times a month Substance Use Type: marijuana Exam Narrative Exam Narrative: GENERAL: Alert and oriented x three, female in mild distress. HEENT: Head normocephalic, atraumatic, EOMI, pupils reactive, face symmetric, moist mucous membranes NECK: Supple, full range of motion CARDIOVASCULAR: Regular rate and rhythm without murmurs, rubs or gallops. RESPIRATORY: Breath sounds equal bilaterally, no wheezes rales or rhonchi. ABDOMEN: Soft, mild right lower quadrant tenderness. Normoactive bowel sounds all 4 quadrants. No guarding or rebound, rigidity, no mass, rectal exam patient has 2 small hemorrhoids, there is a small amount of bright red blood, no obvious fissure. No mass or other skin changes noted. : No CVA tenderness EXTREMITIES: Normal range of motion, no clubbing or edema. Neurovascularly intact NEUROLOGICAL: Cranial nerves II through XII grossly intact. Moving all extremities SKIN: Warm, dry, no petechiae, no rashes or lesions. Initial Vital Signs Initial Vital Signs: Vital Signs Temperature 97.5 F L 06/15/23 12:14 Pulse Rate 83 06/15/23 12:14 Respiratory Rate 14 06/15/23 12:14 Blood Pressure 155/91 H 06/15/23 12:14 Pulse Oximetry 98 06/15/23 12:14 Oxygen Delivery Method Room Air 06/15/23 12:14 Course Orders Ordered: ED Orders 06/15/23 12:24 Urine Culture Stat Urine Microscopic Stat 06/15/23 15:25 CMP [Comprehensive Metabolic Panel] Stat Complete Blood Count AUTO DIFF Stat Lipase Stat 06/15/23 16:28 CT abdomen pelvis w con Stat Vital Signs Vital signs: Vital Signs - 8 hr 06/15/23 12:14 06/15/23 17:24 Temperature 97.5 F L Pulse Rate 83 77 Respiratory Rate 14 14 Blood Pressure 155/91 H 142/88 H Pulse Oximetry 98 100 Oxygen Delivery Method Room Air MDM - GI Bleed Lab Data 06/15/23 15:25 06/15/23 15:25 Labs: Lab Results 06/15/23 06/15/23 06/15/23 Range/Units 12:24 15:25 15:25 WBC 10.7 (4.5-11.0) X10^3/uL RBC 4.90 (4.0-5.2) X10^6/uL Hgb 12.5 (12.0-16.0) g/dL Hct 38.0 (36-46) % MCV 77.6 L (80-100) fL MCH 25.4 L (26-34) PG MCHC 32.8 (30-36) % RDW 14.6 (11.6-14.8) % Plt Count 380 (150-400) X10^3/uL Neut % (Auto) 61.9 (50-75) % Lymph % (Auto) 31.3 (25-40) % [place] % (Auto) 5.0 (3-14) % Eos % (Auto) 1.7 L (2-4) % Baso % (Auto) 0.1 (0-2) % Neut # (Auto) 6600 (0568-8482) /uL Lymph # (Auto) 3400 (1572-9577) /uL [place] # (Auto) 500 (0-900) /uL Eos # (Auto) 200 (0-450) /uL Baso # (Auto) 0 (0-100) /uL Sodium 137 (137-145) mmol/L Potassium 3.8 (3.4-5.1) mmol/L Chloride 102 (98-107) mmol/L Carbon Dioxide 29 (22-32) mmol/L BUN 8 (7-17) mg/dL Creatinine 0.63 (0.52-1.04) mg/dL Estimated GFR > 60 (>60) mL/min BUN/Creatinine Ratio 12.7 (6-22) Glucose 101 H (70-100) mg/dL Calcium 8.9 (8.4-10.2) mg/dL Total Bilirubin 0.6 (0.2-1.3) mg/dL AST 27 (14-36) IU/L ALT 36 H (<35) IU/L Alkaline Phosphatase 54 (38-126) U/L Total Protein 7.5 (6.3-8.2) g/dL Albumin 4.1 (3.5-5.0) g/dL Globulin 3.4 (1.7-4.1) g/dL Albumin/Globulin Ratio 1.2 (1.0-2.8) Lipase (23-300) U/L Urine RBC 0-1/hpf (0-5/HPF) Urine WBC 1-5/hpf (0-5/HPF) Ur Squamous Epith Cells 5-10 /hpf H (0-5/HPF) Amorphous Sediment 1+ Urine Bacteria Moderate (10-30) H (None) Urine Mucus 2+ H (Negative) Ur Culture Indicated? Specimen cultured 06/15/23 Range/Units 15:25 WBC (4.5-11.0) X10^3/uL RBC (4.0-5.2) X10^6/uL Hgb (12.0-16.0) g/dL Hct (36-46) % MCV (80-100) fL MCH (26-34) PG MCHC (30-36) % RDW (11.6-14.8) % Plt Count (150-400) X10^3/uL Neut % (Auto) (50-75) % Lymph % (Auto) (25-40) % [place] % (Auto) (3-14) % Eos % (Auto) (2-4) % Baso % (Auto) (0-2) % Neut # (Auto) (8495-8197) /uL Lymph # (Auto) (6684-6735) /uL [place] # (Auto) (0-900) /uL Eos # (Auto) (0-450) /uL Baso # (Auto) (0-100) /uL Sodium (137-145) mmol/L Potassium (3.4-5.1) mmol/L Chloride (98-107) mmol/L Carbon Dioxide (22-32) mmol/L BUN (7-17) mg/dL Creatinine (0.52-1.04) mg/dL Estimated GFR (>60) mL/min BUN/Creatinine Ratio (6-22) Glucose (70-100) mg/dL Calcium (8.4-10.2) mg/dL Total Bilirubin (0.2-1.3) mg/dL AST (14-36) IU/L ALT (<35) IU/L Alkaline Phosphatase (38-126) U/L Total Protein (6.3-8.2) g/dL Albumin (3.5-5.0) g/dL Globulin (1.7-4.1) g/dL Albumin/Globulin Ratio (1.0-2.8) Lipase 57 (23-300) U/L Urine RBC (0-5/HPF) Urine WBC (0-5/HPF) Ur Squamous Epith Cells (0-5/HPF) Amorphous Sediment Urine Bacteria (None) Urine Mucus (Negative) Ur Culture Indicated? Point of Care Testing Test Results Negative Urine Dip Bedside Urine Glucose Negative Bedside Urine Bilirubin - Negative Bedside Urine Ketone - Negative Urine Specific [place] 1.010 Bedside Urine Occult Blood ++ Bedside Urine pH 7.5 Bedside Urine Protein - Negative Bedside Urine Urobilinogen - Negative Bedside Urine Nitrite - Negative Bedside Urine Leukocytes + [address] scan - abdomen/pelvis: Radiologist's Impression: [address] [address] [address] Scan Report Signed Patient: Jennifer Booker MR#: [id number] : 1995 Acct:[id number] Age/Sex: 27 / F Date of Service: 06/15/23 Loc: ED Accession Number: [id number] ?? Procedure: CT abdomen pelvis w con Ordering Provider: Hemalatha Lake D.O. PROCEDURE:? CT ABDOMEN PELVIS W CON ? INDICATIONS:? RLQ pain, BRB rectum + hemorrhoid ? TECHNIQUE:? After the administration of intravenous contrast, axial sections acquired from the lung bases to the pubic symphysis.? Coronal and sagittal reformats were performed.? For radiation dose reduction, the following was used:? automated exposure control, adjustment of mA and/or kV according to patient size.? ? COMPARISON:? None. ? FINDINGS:? Image quality:? Excellent.? ? Lung bases:? Lung bases are clear. Heart:? No significant findings. ? ABDOMEN: Liver: There is diffuse hypoattenuation of the liver parenchyma relative to the spleen compatible with hepatic steatosis. Gallbladder:? Unremarkable Biliary ducts: No intrahepatic or extrahepatic biliary ductal dilatation identified.? Pancreas:? Unremarkable.? ? Spleen:? No splenomegaly Adrenal Glands:? Unremarkable.? ? Kidneys and Ureters: Kidneys are symmetric in size and enhancement, and there is no obstructive uropathy.? No perinephric inflammatory changes. Ureters are normal in course and caliber.? ? Stomach and Bowel:? Stomach, small bowel loops, and colon are unremarkable.? The appendix is not definitively identified.? The most likely candidate appears within normal limits.? No secondary findings for acute appendicitis. Peritoneum:? No abnormal intraperitoneal fluid.? No free air.? ? Ventral Wall: ? No hernias.? Abdominal Nodes:? No retroperitoneal or mesenteric adenopathy by size criteria.? Vessels:? Aorta and inferior vena cava are normal in size.? ? PELVIS: Pelvic Organs:? Reproductive organs appear unremarkable.? Bilateral ovarian/adnexal cyst more pronounced on the left.? Trace pelvic free fluid likely physiologic. Bladder:? Unremarkable.? ? Pelvic Nodes: No enlarged lymph nodes.? Miscellaneous: No hernias are seen. ? ? ? Bones:? Visualized osseous structures appear intact without acute fracture or focal destructive lesion. No acute compression fractures of the imaged spine. ? ? IMPRESSION:? ? 1. CT abdomen and pelvis without acute abnormalities to explain patient's symptoms. ? 2. Mild hepatomegaly with diffuse hepatic steatosis.? ? ? Dictated by: Nash Yepez M.D. on 06/15/2023 at 16:11 ? ? Approved by: Nash Yepez M.D. on 06/15/2023 at 16:16 MDM Narrative Medical decision making narrative: This is a 27-year-old female who presents with rectal bleeding, patient's labs are overall reassuring she did have 1 episode of vomiting and has some right lower quadrant pain that is new starting today. She denies rectal pain. She does have small hemorrhoids that could cause rectal bleeding but does not correlate with her right lower quadrant pain or episode of vomiting earlier. Labs are overall appropriate, patient is hemodynamically stable. Discussed risks versus benefits CT abdomen pelvis to evaluate for appendicitis versus colitis. Patient elects to pursue CT imaging this does not show any acute change does have some hepatic steatosis.. She has had colonoscopy and EGD 2 years ago which were both negative at that time for similar issue. Findings reviewed with patient, treatment for potential hemorrhoids. If having persistent rectal bleeding she should follow-up re-evaluation. Reviewed all findings and return precautions. Patient feels comfortable with this plan. Discharge Plan Departure Patient Disposition: Home Clinical Impression: Rectal bleeding, Hemorrhoid, Fatty liver Instructions: DI for Constipation, DI for Rectal Bleeding Activity Restrictions/Additional Instructions: Please follow-up for recheck if you are having persistent rectal bleeding. You do have some small hemorrhoids that are likely source. You can use Sitz baths. Tucks pads to the rectal area. Make sure stools are soft, take a stool softener once to twice daily until stools are soft and regular this will also help symptoms. Please return for fevers, rapidly worsening abdominal back or flank pain, persistent vomiting, lightheadedness or passing out or other new or concerning changes. Prescriptions: No Action prednisone 20 mg Tablet 40 mg PO DAILY Qty: 6 0RF famotidine [Pepcid] 40 mg tablet 40 mg PO DAILY Qty: 60 0RF medroxyprogesterone [Provera] 10 mg tablet 10 mg PO DAILY Qty: 60 0RF Rx Instructions: 2 tabs q4hrs x 48 hr. 2 tab q6hr x 48hr. 2 tab q8hr x 48hr. 2 tab q12hr x 48hr. 2 tab qd x 7 days medroxyprogesterone 10 mg tablet See Rx Instructions .ROUTE .COMPLEX Qty: 100 0RF Rx Instructions: 2 tabs q4hrs x 48 hr. 2 tab q6hr x 48hr. 2 tab q8hr x 48hr. 2 tab q12hr x 48hr. 2 tab qd x 7 days, then continue 1 daily for 2 more weeks naproxen 500 mg tablet 500 mg PO BID Qty: 60 1RF cetirizine 10 mg tablet 10 mg PO DAILY Qty: 10 0RF epinephrine 0.3 mg/0.3 mL auto-injector 0.3 mg IM Q5-15M PRN (Reason: anaphylaxis) Qty: 2 0RF Rx Instructions: do not exceed 3 doses per episode hydroxyzine HCl 10 mg tablet 10 mg PO Q8H PRN (Reason: itching) Qty: 14 0RF Referrals: Valentín Velez MD [Primary Care Provider] - Stand Alone Forms: Patient Portal/API
[2023-06-15 16:21] LABS: Lipase 57 U/L (23-300)
--- NOTE | 2023-06-15 16:28 | DI.CT.S_ITS ---
PROCEDURE: CT ABDOMEN PELVIS W CON INDICATIONS: RLQ pain, BRB rectum + hemorrhoid TECHNIQUE: After the administration of intravenous contrast, axial sections acquired from the lung bases to the pubic symphysis. Coronal and sagittal reformats were performed. For radiation dose reduction, the following was used: automated exposure control, adjustment of mA and/or kV according to patient size. COMPARISON: None. FINDINGS: Image quality: Excellent. Lung bases: Lung bases are clear. Heart: No significant findings. ABDOMEN: Liver: There is diffuse hypoattenuation of the liver parenchyma relative to the spleen compatible with hepatic steatosis. Gallbladder: Unremarkable Biliary ducts: No intrahepatic or extrahepatic biliary ductal dilatation identified. Pancreas: Unremarkable. Spleen: No splenomegaly Adrenal Glands: Unremarkable. Kidneys and Ureters: Kidneys are symmetric in size and enhancement, and there is no obstructive uropathy. No perinephric inflammatory changes. Ureters are normal in course and caliber. Stomach and Bowel: Stomach, small bowel loops, and colon are unremarkable. The appendix is not definitively identified. The most likely candidate appears within normal limits. No secondary findings for acute appendicitis. Peritoneum: No abnormal intraperitoneal fluid. No free air. Ventral Wall: No hernias. Abdominal Nodes: No retroperitoneal or mesenteric adenopathy by size criteria. Vessels: Aorta and inferior vena cava are normal in size. PELVIS: Pelvic Organs: Reproductive organs appear unremarkable. Bilateral ovarian/adnexal cyst more pronounced on the left. Trace pelvic free fluid likely physiologic. Bladder: Unremarkable. Pelvic Nodes: No enlarged lymph nodes. Miscellaneous: No hernias are seen. Bones: Visualized osseous structures appear intact without acute fracture or focal destructive lesion. No acute compression fractures of the imaged spine. IMPRESSION: 1. CT abdomen and pelvis without acute abnormalities to explain patient's symptoms. 2. Mild hepatomegaly with diffuse hepatic steatosis. Dictated by: Nash Yepez M.D. on 06/15/2023 at 16:11 Approved by: Nash Yepez M.D. on 06/15/2023 at 16:16
[2023-06-15 17:24] VITALS: BP 142/88; PULSE 77; RESP 14; O2SAT 100
== END 2023-06-15 17:40 | disposition home or self-care (01) ==
PROVIDERS: Emergency Provider Emergency Medicine; PCP Family Medicine
DX: K62.5 Hemorrhage of anus and rectum (principal); K64.9 Unspecified hemorrhoids; K76.0 Fatty (change of) liver, not elsewhere classified
CPT/HCPCS: 74177; 80053; 81003; 81015; 81025; 83690; 85025; 87086; 99284; Q9967

== ENCOUNTER 2024-05-29 01:17 | Emergency (ER) | payer OTHER, SELFPAY ==
[2022-04-15 12:35] VITALS: BMI 50.1
[2024-05-29 01:29] VITALS: BP 138/80; PULSE 98; RESP 18; TEMP 36.6; O2SAT 99; BMI 47.2
--- NOTE | 2024-05-29 01:36 | DI.RAD.S_ITS ---
PROCEDURE: XR RIBS LT MIN 3V W CXR1V INDICATIONS: pain s/p falling into crab cage TECHNIQUE: 2 views of the ribs were acquired, along with a single view chest. COMPARISON: None. FINDINGS: Surgical changes and devices: None. Bones and chest wall: No fractures or dislocations. No suspicious bony lesions. Overlying soft tissues appear unremarkable. Lungs and pleura: No pleural effusions or pneumothorax. Lungs appear clear. Mediastinum: Mediastinal contours appear normal. Heart size is normal. IMPRESSION: No displaced rib fracture or pneumothorax. Dictated by: Kem Esparza M.D. on 05/29/2024 at 1:53 Approved by: Kem Esparza M.D. on 05/29/2024 at 1:58
--- NOTE | 2024-05-29 03:28 | ED_ITS ---
HPI - Chest Pain General Chief Complaint: Chest Pain Stated Complaint: fall 2 wks ago Time Seen by Provider: 05/29/24 02:45 Source: patient and EMS Mode of arrival: EMS Limitations: no limitations History of Present Illness HPI narrative: 28-year-old female with left-sided chest pain after direct blow falling into a crab pot, while a board a fishing vessel at see, worse pain with inspiration, worse with any movements of arm or chest. No history of blood clots to legs or lungs known. No leg pain or swelling symptoms. No fevers or chills. No increasing shortness of breath. She is tried Tylenol which helps somewhat with the pain. Related Data Previous Rx's Medication Instructions Recorded cetirizine 10 mg tablet 10 mg PO DAILY allergic reaction 04/13/22 #10 tabs epinephrine 0.3 mg/0.3 mL 0.3 mg (0.3 mL) IM Q5-15M PRN 04/13/22 injection, auto-injector anaphylaxis #2 ea hydroxyzine HCl 10 mg tablet 10 mg PO Q8H PRN itching #14 tabs 04/13/22 famotidine 40 mg tablet (Pepcid) 40 mg PO DAILY #60 tabs 04/16/22 prednisone 20 mg tablet 40 mg (2 x 20 mg) PO DAILY #6 tabs 04/16/22 medroxyprogesterone 10 mg tablet 10 mg PO DAILY #60 tabs 12/08/22 (Provera) medroxyprogesterone 10 mg tablet See Rx Instructions .Route 12/25/22 .COMPLEX #100 tabs naproxen 500 mg tablet 500 mg PO BID #60 tabs 12/25/22 albuterol sulfate 90 mcg/actuation 2 puff inhalation Q6H PRN 05/29/24 aerosol inhaler shortness of breath or wheezing #8.5 grams albuterol sulfate 90 mcg/actuation 2 puff inhalation Q6H PRN 05/29/24 aerosol inhaler shortness of breath or wheezing #8.5 grams Allergies Allergy/AdvReac Type Severity Reaction Status Date / Time nut - unspecified Allergy Severe Anaphylaxis Verified 05/29/24 01:36 Patient History Medical History Rectal bleeding Surgical History H/O colonoscopy (~09/21/21) Social History household members: family Smoking Status: Never smoker Smoking Status: Never smoker alcohol intake frequency: a few times a month Substance Use Type: marijuana Exam Narrative Exam Narrative: GENERAL: Well-developed patient, in mild distress. HEAD: Atraumatic. Normocephalic. EYES: Pupils equal round and reactive. Extraocular motions intact. No scleral icterus. No injection or drainage. ENT: Nose without bleeding, purulent drainage. Throat without erythema, tonsillar hypertrophy or exudate. Airway patent. NECK: Trachea midline. Non tender CARDIOVASCULAR: Regular rate and rhythm without murmurs, gallops, or rubs. RESPIRATORY: No respiratory distress, speaks in full sentences, some tenderness who anterolateral left rib, no bruising or contusion to skin of left breast. No retractions intercostal or suprasternal. Clear to auscultation. Breath sounds equal bilaterally. No wheezes, rales, or rhonchi. GASTROINTESTINAL: Abdomen soft, non-tender, nondistended. EXTREMITIES: No edema or joint tenderness. BACK: Nontender without deformity or crepitance. No flank tenderness. NEURO: AOx3. SKIN: No rash or erythema of visible areas Initial Vital Signs Initial Vital Signs: Vital Signs Temperature 97.9 F 05/29/24 01:29 Pulse Rate 98 H 05/29/24 01:29 Respiratory Rate 18 05/29/24 01:29 Blood Pressure 138/80 05/29/24 01:29 Pulse Oximetry 99 05/29/24 01:29 Oxygen Delivery Method Room Air 05/29/24 01:29 Course Orders Ordered: ED Orders 05/29/24 01:36 XR ribs LT min 3V w CXR1V Stat Discontinued Medications Ketorolac Tromethamine (Ketorolac 30 Mg/Ml Vial) 30 mg IM NOW ONE Stop: 05/29/24 03:39 Last Admin: 05/29/24 03:49 Dose: 30 mg Documented By: JUDIE Tramadol HCl (Tramadol 50 Mg Prepack) 1 bottle MISC DIRECTED ONE Stop: 05/29/24 03:41 Last Admin: 05/29/24 03:49 Dose: 1 bottle Documented By: JUDIE Vital Signs Vital signs: Vital Signs - 8 hr 06/28/24 01:29 05/29/24 03:35 05/29/24 04:00 Temperature 97.9 F Pulse Rate 98 H 76 78 Respiratory Rate 18 16 18 Blood Pressure 138/80 147/76 H 133/72 Pulse Oximetry 99 99 99 Oxygen Delivery Method Room Air Room Air Room Air MDM - Chest Pain Imaging Data Chest x-ray: Radiologist's Impression: [address] [address] XRay Report Signed Patient: Jennifer Booker MR#: [id number] : 1995 Acct:[id number] Age/Sex: 28 / F Date of Service: 05/29/24 Loc: ED Accession Number: [id number] Procedure: XR ribs LT min 3V w CXR1V Ordering Provider: Claude Cobb MD PROCEDURE: XR RIBS LT MIN 3V W CXR1V INDICATIONS: pain s/p falling into crab cage TECHNIQUE: 2 views of the ribs were acquired, along with a single view chest. COMPARISON: None. FINDINGS: Surgical changes and devices: None. Bones and chest wall: No fractures or dislocations. No suspicious bony lesions. Overlying soft tissues appear unremarkable. Lungs and pleura: No pleural effusions or pneumothorax. Lungs appear clear. Mediastinum: Mediastinal contours appear normal. Heart size is normal. IMPRESSION: No displaced rib fracture or pneumothorax. Dictated by: eKm Esparza M.D. on 05/29/2024 at 1:53 Approved by: Kem Esparza M.D. on 05/29/2024 at 1:58 [facility] Narrative Medical decision making narrative: 28-year-old female fell 2 weeks ago against crab pot swollen on sea going vessel, struck left chest and breast, persisting pain since that time. Afebrile, sirs screen negative, no oxygen requirement, no respiratory distress. Lungs clear. Some tenderness left anterolateral chest wall, without crepitance or ecchymoses. Chest x-ray rib series negative. IM Toradol, symptoms improved. Encouraged to use ibuprofen/naproxen for pain control, dispensed spacer use with albuterol sent to her pharmacy, dispensed station and teaching with incentive spirometer. Discussed pulmonary toilet, importance of aeration, prevention of atelectasis leading to pneumonia complication of chest wall injury. She expressed understanding. Discharged home, stable, improved Discharge Plan Departure Patient Disposition: Home Clinical Impression: Chest wall contusion Activity Restrictions/Additional Instructions: Bruising like injury to the left anterior chest from [place] sea about 2 weeks ago. Normal oxygenation, normal vitals, no fever. Lungs clear, no respiratory distress. Chest x-ray including rib series showed no lung injuries, also no definite rib fractures. Injection of Toradol for pain control. Consider naproxen [id number] medication for pain control. Tramadol home pack provided as well, if needed for pain control. Make sure that you are having adequate pain control to breathe deeply, to prevent pneumonia complication of chest wall injuries. Incentive spirometer to help open the lung provided. Inhaler sent to your pharmacy, to use with spacer, 2 puffs 4 times daily, to help keep lungs open as well. Recheck symptoms with your regular provider Saturday. Return to this/nearest emergency department for any change worsening symptoms or any concerns prior Prescriptions: New albuterol sulfate 90 mcg/actuation HFA aerosol inhaler 2 puff inhalation Q6H PRN (Reason: shortness of breath or wheezing) Qty: 8.5 0RF albuterol sulfate 90 mcg/actuation HFA aerosol inhaler 2 puff inhalation Q6H PRN (Reason: shortness of breath or wheezing) Qty: 8.5 0RF No Action prednisone 20 mg Tablet 40 mg PO DAILY Qty: 6 0RF famotidine [Pepcid] 40 mg tablet 40 mg PO DAILY Qty: 60 0RF medroxyprogesterone [Provera] 10 mg tablet 10 mg PO DAILY Qty: 60 0RF Rx Instructions: 2 tabs q4hrs x 48 hr. 2 tab q6hr x 48hr. 2 tab q8hr x 48hr. 2 tab q12hr x 48hr. 2 tab qd x 7 days medroxyprogesterone 10 mg tablet See Rx Instructions .ROUTE .COMPLEX Qty: 100 0RF Rx Instructions: 2 tabs q4hrs x 48 hr. 2 tab q6hr x 48hr. 2 tab q8hr x 48hr. 2 tab q12hr x 48hr. 2 tab qd x 7 days, then continue 1 daily for 2 more weeks naproxen 500 mg tablet 500 mg PO BID Qty: 60 1RF cetirizine 10 mg tablet 10 mg PO DAILY Qty: 10 0RF epinephrine 0.3 mg/0.3 mL auto-injector 0.3 mg IM Q5-15M PRN (Reason: anaphylaxis) Qty: 2 0RF Rx Instructions: do not exceed 3 doses per episode hydroxyzine HCl 10 mg tablet 10 mg PO Q8H PRN (Reason: itching) Qty: 14 0RF Referrals: Valentín Velez MD [Primary Care Provider] - Stand Alone Forms: Patient Portal/API
[2024-05-29 03:35] VITALS: BP 147/76; PULSE 76; RESP 16; O2SAT 99
[2024-05-29] MEDS: TRAMADOL 50 MG PREPACK 1 BOTTLE MISC (03:49)
[2024-05-29] MEDS: KETOROLAC 30 MG/ML VIAL IM (03:49)
[2024-05-29 04:00] VITALS: BP 133/72; PULSE 78; RESP 18; O2SAT 99
== END 2024-05-29 04:02 | disposition home or self-care (01) ==
PROVIDERS: Emergency Provider Emergency Medicine; PCP Family Medicine
DX: S20.219A Contusion of unspecified front wall of thorax, initial encounter (principal); W17.89XA Other fall from one level to another, initial encounter
CPT/HCPCS: 71101; 96372; 99283; J1885

== ENCOUNTER 2024-07-14 09:27 | Emergency (ER) | payer OTHER, SELFPAY ==
[2022-04-15 12:35] VITALS: BMI 50.1
[2024-07-14 09:37] VITALS: BP 173/99; PULSE 64; RESP 16; TEMP 36.6; O2SAT 95
--- NOTE | 2024-07-14 10:06 | ED_ITS ---
HPI - Dental/Oral General Chief complaint: Dental/Oral Stated complaint: tooth infection, antibiotics not working Time Seen by Provider: 07/14/24 09:33 History of Present Illness HPI Narrative: Patient is a 28-year-old female history of PCOS presenting today with right lower tooth pain. She reports been ongoing for weeks she saw a dentist yesterday she started on antibiotic she needs her tooth pulled. Her pain is so severe that she can not drink anything. She has no fever facial swelling. She has been taking Tylenol and ibuprofen but it it is not helping Related Data Previous Rx's Medication Instructions Recorded cetirizine 10 mg tablet 10 mg PO DAILY allergic reaction 04/13/22 #10 tabs epinephrine 0.3 mg/0.3 mL 0.3 mg (0.3 mL) IM Q5-15M PRN 04/13/22 injection, auto-injector anaphylaxis #2 ea hydroxyzine HCl 10 mg tablet 10 mg PO Q8H PRN itching #14 tabs 04/13/22 famotidine 40 mg tablet (Pepcid) 40 mg PO DAILY #60 tabs 04/16/22 prednisone 20 mg tablet 40 mg (2 x 20 mg) PO DAILY #6 tabs 04/16/22 medroxyprogesterone 10 mg tablet 10 mg PO DAILY #60 tabs 12/08/22 (Provera) medroxyprogesterone 10 mg tablet See Rx Instructions .Route 12/25/22 .COMPLEX #100 tabs naproxen 500 mg tablet 500 mg PO BID #60 tabs 12/25/22 albuterol sulfate 90 mcg/actuation 2 puff inhalation Q6H PRN 05/29/24 aerosol inhaler shortness of breath or wheezing #8.5 grams albuterol sulfate 90 mcg/actuation 2 puff inhalation Q6H PRN 05/29/24 aerosol inhaler shortness of breath or wheezing #8.5 grams hydrocodone 5 mg-acetaminophen 325 1 tab PO Q6H PRN pain #10 tabs 07/14/24 mg tablet Allergies Allergy/AdvReac Type Severity Reaction Status Date / Time nut - unspecified Allergy Severe Anaphylaxis Verified 07/14/24 09:54 Patient History Medical History Rectal bleeding Surgical History H/O colonoscopy (~09/21/21) Social History household members: family Smoking Status: Never smoker Smoking Status: Never smoker alcohol intake frequency: a few times a month Substance Use Type: marijuana Exam Initial Vital Signs Initial Vital Signs: Vital Signs Temperature 97.8 F 07/14/24 09:37 Pulse Rate 64 07/14/24 09:37 Respiratory Rate 16 07/14/24 09:37 Blood Pressure 173/99 H 07/14/24 09:37 Pulse Oximetry 95 07/14/24 09:37 Oxygen Delivery Method Room Air 07/14/24 09:37 GENERAL: Well-appearing, well-nourished and in no acute distress. CARDIOVASCULAR: peripheral pulses in tact, cap refill <2 sec RESPIRATORY: No respiratory distress, speaks in full sentences without difficulty EXTREMITIES: Normal range of motion, no clubbing or edema. Neurovascularly intact NEUROLOGICAL: Cranial nerves II through XII grossly intact. Normal gait and speech. SKIN: Warm, dry, no petechiae, no rashes or lesions. HENMT Adult Head Mouth w/Numbe Teeth: 2 1. No dental abscess dental priyanka noted Procedures Nerve Block Nerve Block 1: Local Anesthetic: lidocaine 1% and with epi Amount of anesthesia used (mL): 2 Side: right Intraoral Nerve Block: supraperiosteal Procedure Successful: Yes Course Vital Signs Vital signs: Vital Signs - 8 hr 07/14/24 09:37 Temperature 97.8 F Pulse Rate 64 Respiratory Rate 16 Blood Pressure 173/99 H Pulse Oximetry 95 Oxygen Delivery Method Room Air MDM - Dental/Oral MDM Narrative Medical decision making narrative: Patient 28-year-old female who has ongoing dental pain. Is currently being seen by a dentist started on antibiotics pain is not well-controlled. Gentle block was performed and successful. Will start her on some [place] for further dental pain control. She will follow-up and have the tooth eventually removed She has no evidence Dayron angina, Dental abscess or facial cellulitis Discharge Plan Departure Patient Disposition: Home Clinical Impression: Pain, dental Instructions: DI for Dental Pain Activity Restrictions/Additional Instructions: *You have been diagnosed with dental pain *What to do: At this time please follow-up with your dentist finish antibiotics as prescribed *Continue to take medications as directed Motrin 600 mg every 6 hours for mblu-[id number] pain [place] 1 tablet every 6 hours if needed for severe pain or night to help with sleeping *Follow up with your primary care provider in 2-3 days or call [phone] *Return to ER if you should have increasing facial pain swelling fever red or any new, worsening or concerning symptoms CONTROLLED SUBSTANCE DISCHARGE (Narcotoic/benzodiazepine/Flexeril/Phenergan) 1. You have been prescribed narcotic medications, it does have acetaminophen/Tylenol/paracetamol in it, DO NOT TAKE MORE THAN 4,00mg in 24 hours of Tylenol. TRAMADOL DOES NOT CONTAIN TYLENOL 2. Please understand that we cannot provide further refills of narcotics, benzodiazepines or controlled substances through the ED and her pain management will need to be through your provider. 3. While on these medications you cannot drive or operate heavy machinery. 4. You cannot sign legal documents or perform any duties such as this. 5. As long as you're taking opiate pain medications he should also be taking a stool softener such as Colace, Dulcolax, MiraLAX or prune juice, to help avoid constipation. Prescriptions: New hydrocodone-acetaminophen 5-325 mg tablet 1 tab PO Q6H PRN (Reason: pain) Qty: 10 0RF No Action prednisone 20 mg Tablet 40 mg PO DAILY Qty: 6 0RF famotidine [Pepcid] 40 mg tablet 40 mg PO DAILY Qty: 60 0RF medroxyprogesterone [Provera] 10 mg tablet 10 mg PO DAILY Qty: 60 0RF Rx Instructions: 2 tabs q4hrs x 48 hr. 2 tab q6hr x 48hr. 2 tab q8hr x 48hr. 2 tab q12hr x 48hr. 2 tab qd x 7 days medroxyprogesterone 10 mg tablet See Rx Instructions .ROUTE .COMPLEX Qty: 100 0RF Rx Instructions: 2 tabs q4hrs x 48 hr. 2 tab q6hr x 48hr. 2 tab q8hr x 48hr. 2 tab q12hr x 48hr. 2 tab qd x 7 days, then continue 1 daily for 2 more weeks naproxen 500 mg tablet 500 mg PO BID Qty: 60 1RF cetirizine 10 mg tablet 10 mg PO DAILY Qty: 10 0RF epinephrine 0.3 mg/0.3 mL auto-injector 0.3 mg IM Q5-15M PRN (Reason: anaphylaxis) Qty: 2 0RF Rx Instructions: do not exceed 3 doses per episode hydroxyzine HCl 10 mg tablet 10 mg PO Q8H PRN (Reason: itching) Qty: 14 0RF albuterol sulfate 90 mcg/actuation HFA aerosol inhaler 2 puff inhalation Q6H PRN (Reason: shortness of breath or wheezing) Qty: 8.5 0RF albuterol sulfate 90 mcg/actuation HFA aerosol inhaler 2 puff inhalation Q6H PRN (Reason: shortness of breath or wheezing) Qty: 8.5 0RF Stand Alone Forms: Patient Portal/API
== END 2024-07-14 10:40 | disposition home or self-care (01) ==
PROVIDERS: Emergency Provider Emergency Medicine
DX: K08.89 Other specified disorders of teeth and supporting structures (principal)
CPT/HCPCS: 64400; 99281; 99283

== ENCOUNTER 2025-01-21 12:31 | Emergency (ER) | payer OTHER, SELFPAY ==
[2022-04-15 12:35] VITALS: BMI 50.1
[2025-01-21 12:44] VITALS: BP 130/76; PULSE 65; RESP 18; TEMP 37.1; O2SAT 99; BMI 45.1
--- NOTE | 2025-01-21 13:46 | ED_ITS ---
<Statement entered by Thanh Paredes DO - 01/23/25 10:49> Dr. Paredes: I was immediately available in the department for consultation. I did not actually see the patient. HPI - Head Injury General Chief complaint: Head Injury Stated complaint: Head injury, migraine, vertigo post injury Time Seen by Provider: 01/21/25 12:59 Source: patient Mode of arrival: Ambulatory History of Present Illness HPI Narrative: Ms. Booker is a pleasant 29-year-old female with a past medical history of migraine headaches who presents to the emergency department for headache after head trauma that occurred approximately 11:00 a.m. this morning. Patient was working when a 4/5-year-old child hit her in the forehead with a lunch tray. Reports immediately developing swelling on the front of her forehead. She denies loss of consciousness or nausea or vomiting after the event. States that immediately following the trauma she did feel like she had some black spots in her vision and she felt sensation of vertigo but quickly resolved. She continues to have pressure like headache on the front of her forehead and sensitivity to light. Also reports that she did have a migraine headache when she woke up this morning that resolved with sumatriptan. Denies blood thinner use, fall, LOC, any other injuries. Related Data Previous Rx's Medication Instructions Recorded cetirizine 10 mg tablet 10 mg PO DAILY allergic reaction 04/13/22 #10 tabs epinephrine 0.3 mg/0.3 mL 0.3 mg (0.3 mL) IM Q5-15M PRN 04/13/22 injection, auto-injector anaphylaxis #2 ea hydroxyzine HCl 10 mg tablet 10 mg PO Q8H PRN itching #14 tabs 04/13/22 famotidine 40 mg tablet (Pepcid) 40 mg PO DAILY #60 tabs 04/16/22 prednisone 20 mg tablet 40 mg (2 x 20 mg) PO DAILY #6 tabs 04/16/22 medroxyprogesterone 10 mg tablet 10 mg PO DAILY #60 tabs 12/08/22 (Provera) medroxyprogesterone 10 mg tablet See Rx Instructions .Route 12/25/22 .COMPLEX #100 tabs naproxen 500 mg tablet 500 mg PO BID #60 tabs 12/25/22 albuterol sulfate 90 mcg/actuation 2 puff inhalation Q6H PRN 05/29/24 aerosol inhaler shortness of breath or wheezing #8.5 grams albuterol sulfate 90 mcg/actuation 2 puff inhalation Q6H PRN 05/29/24 aerosol inhaler shortness of breath or wheezing #8.5 grams hydrocodone 5 mg-acetaminophen 325 1 tab PO Q6H PRN pain #10 tabs 07/14/24 mg tablet Allergies Allergy/AdvReac Type Severity Reaction Status Date / Time nut - unspecified Allergy Severe Anaphylaxis Verified 07/14/24 09:54 ketorolac [From Toradol] Allergy Migraine Verified 01/21/25 12:44 Review of Systems Review of Systems ROS Unobtainable: All systems reviewed & are unremarkable except as noted in HPI and below Patient History Medical History Rectal bleeding Surgical History H/O colonoscopy (~09/21/21) Social History household members: family Smoking Status: Never smoker Smoking Status: Never smoker alcohol intake frequency: a few times a month Exam Narrative Exam Narrative: GENERAL: 29 year old patient appears stated age. Well-developed patient, in no acute distress. HEAD: Slight area of swelling on center/left side of forehead with no overlying abrasion, ecchymosis or laceration. No palpable depressed skull fracture. EYES: PERRL. Extraocular motions intact. No scleral icterus. No injection or drainage. ENT: Normal TMs bilaterally. Nose without bleeding, purulent drainage. Throat without erythema, tonsillar hypertrophy or exudate. Airway patent. NECK: Trachea midline. Cervical ROM intact. CARDIOVASCULAR: Regular rate and rhythm. RESPIRATORY: ?Nonlabored respirations. ?Speaking in clear, full sentences. ?Clear to auscultation. Breath sounds equal bilaterally. No wheezes, rales, or rhonchi. ? NEURO: AOx3. ?Clear speech. ?Moves all 4 extremities appropriately. Normal [id number], heel-mohan, rapid alternating movements. No facial asymmetry. SKIN: No rash or erythema of visible areas Initial Vital Signs Initial Vital Signs: Vital Signs Temperature 98.7 F 01/21/25 12:44 Pulse Rate 65 01/21/25 12:44 Respiratory Rate 18 01/21/25 12:44 Blood Pressure 130/76 01/21/25 12:44 Pulse Oximetry 99 01/21/25 12:44 Oxygen Delivery Method Room Air 01/21/25 12:[address] Head Rule Age <16 years old: No Patient on blood thinners: No Seizure after injury: No Exclusion: Patient NOT Excluded, Proceed to next steps GCS < 15 at 2 hr post trauma: No Suspected open or depressed skull fracture: No Any sign of basilar skull fracture (hemotympanum, raccoon eyes, Montaño's sign, CSF crys-/rhinorrhea): No Two or more episodes of vomiting: No Age greater or equal to 65 years: No Retrograde amnesia to the event greater or equal to 30 min: No Dangerous Mechanism (pedestrian vs. mv, occupant ejected from mv, fall from >3 ft or > 5 stairs): No Recommendation: CT unnecessary Course Orders Ordered: Discontinued Medications Acetaminophen (Acetaminophen 325 Mg Tablet) 975 mg PO NOW ONE Stop: 01/21/25 14:00 Last Admin: 01/21/25 14:34 Dose: 975 mg Documented By: CLARITZA Ibuprofen (Ibuprofen 400 Mg Tablet) 400 mg PO NOW ONE Stop: 01/21/25 14:00 Last Admin: 01/21/25 14:34 Dose: 400 mg Documented By: CLARITZA Ondansetron HCl (Ondansetron 4 Mg Odt) 4 mg SL NOW ONE Stop: 01/21/25 14:00 Last Admin: 01/21/25 14:34 Dose: 4 mg Documented By: CLARITZA Vital Signs Vital signs: Vital Signs - 8 hr 01/21/25 12:44 01/21/25 15:06 Temperature 98.7 F 98.1 F Pulse Rate 65 80 Respiratory Rate 18 18 Blood Pressure 130/76 136/67 Pulse Oximetry 99 99 Oxygen Delivery Method Room Air Room Air MDM - Head Injury Medical Records Attestation: I reviewed the patient's medical records. [facility] Narrative Medical decision making narrative: 29-year-old female with a past medical history of migraine headaches who presents to the emergency department for headache after head trauma that occurred approximately 11:00 a.m. this morning. Patient was working when a 4/5-year-old child hit her in the forehead with a lunch tray. Differential diagnosis includes but is not limited to closed head injury, concussion, hematoma, etc. On exam patient is in no acute distress, nontoxic appearing, vital signs appropriate. She is slight swelling on her forehead, no focal neurologic deficits or signs of basilar skull fracture. Rains CT head negative. Suspect symptoms results of concussion and recommended ibuprofen, Tylenol, Zofran, rest, reduce mental stimulation. Advised patient to follow up within the next 2-3 days with her primary care doctor and we discussed very strict ER return precautions. She verbalized understanding of all information is agreeable to the plan. She states that she already has prescription for Zofran at home that she can take if needed for nausea. She is stable for discharge home. Discharge Plan Departure Patient Disposition: Home Clinical Impression: Closed head injury Qualifiers: Encounter type: initial encounter Qualified Code(s): S09.90XA - Unspecified injury of head, initial encounter Instructions: DI for Closed Head Injury Activity Restrictions/Additional Instructions: Thank you for coming to the emergency department. Today you were evaluated for head injury and your symptoms are most consistent with a concussion. You will likely have a mild headache and some nausea for a few days. Avoiding highly stimulating activities and even TV or computers may be helpful in minimizing your symptoms. Avoid activities that will put you at risk for another head injury for at least a week. You can take tylenol or motrin for headache or zofran for nausea. Return for worsening or persistent symptoms. Please take Ibuprofen (Motrin/Advil) or Acetaminophen (Tylenol) for pain. These are available over the counter. You may take Ibuprofen 600 mg every 8 hours with food for pain. You may also take Acetaminophen 650 mg every 4-6 hours for pain. Do not exceed 3000 mg of Tylenol a day as this can cause liver damage. Do not drink alcohol with either of these medications. Please follow up with your primary care doctor within the next 2-3 days for ER follow-up. (If you do not have a PCP you can call [phone]. ?to schedule an appointment with an [facility] Primary Care Provider) IF YOU DEVELOP ANY NEW OR WORSENING SYMPTOMS, RETURN TO THE ER! Please read the attached instructions, they highlight more specific treatments and interventions for you at home. Thank you for letting me participate in your care, Rossy Valentine PA-C Prescriptions: No Action prednisone 20 mg Tablet 40 mg PO DAILY Qty: 6 0RF famotidine [Pepcid] 40 mg tablet 40 mg PO DAILY Qty: 60 0RF medroxyprogesterone [Provera] 10 mg tablet 10 mg PO DAILY Qty: 60 0RF Rx Instructions: 2 tabs q4hrs x 48 hr. 2 tab q6hr x 48hr. 2 tab q8hr x 48hr. 2 tab q12hr x 48hr. 2 tab qd x 7 days medroxyprogesterone 10 mg tablet See Rx Instructions .ROUTE .COMPLEX Qty: 100 0RF Rx Instructions: 2 tabs q4hrs x 48 hr. 2 tab q6hr x 48hr. 2 tab q8hr x 48hr. 2 tab q12hr x 48hr. 2 tab qd x 7 days, then continue 1 daily for 2 more weeks naproxen 500 mg tablet 500 mg PO BID Qty: 60 1RF hydrocodone-acetaminophen 5-325 mg tablet 1 tab PO Q6H PRN (Reason: pain) Qty: 10 0RF cetirizine 10 mg tablet 10 mg PO DAILY Qty: 10 0RF epinephrine 0.3 mg/0.3 mL auto-injector 0.3 mg IM Q5-15M PRN (Reason: anaphylaxis) Qty: 2 0RF Rx Instructions: do not exceed 3 doses per episode hydroxyzine HCl 10 mg tablet 10 mg PO Q8H PRN (Reason: itching) Qty: 14 0RF albuterol sulfate 90 mcg/actuation HFA aerosol inhaler 2 puff inhalation Q6H PRN (Reason: shortness of breath or wheezing) Qty: 8.5 0RF albuterol sulfate 90 mcg/actuation HFA aerosol inhaler 2 puff inhalation Q6H PRN (Reason: shortness of breath or wheezing) Qty: 8.5 0RF Stand Alone Forms: Patient Portal/API/Survey, Work Release Note
[2025-01-21] MEDS: ACETAMINOPHEN 325 MG TABLET 975 MG PO (14:34)
[2025-01-21] MEDS: ONDANSETRON 4 MG ODT SL (14:34)
[2025-01-21] MEDS: IBUPROFEN 400 MG TABLET PO (14:34)
[2025-01-21 15:06] VITALS: BP 136/67; PULSE 80; RESP 18; TEMP 36.7; O2SAT 99
== END 2025-01-21 15:06 | disposition home or self-care (01) ==
PROVIDERS: Emergency Provider Physician Assistant
DX: S09.90XA Unspecified injury of head, initial encounter (principal); W20.8XXA Other cause of strike by thrown, projected or falling object, initial encounter
CPT/HCPCS: 99283

== ENCOUNTER 2025-10-21 11:44 | Emergency (ER) | payer OTHER, SELFPAY ==
[2022-04-15 12:35] VITALS: BMI 50.1
[2025-10-21 12:10] VITALS: BP 176/87; PULSE 85; RESP 15; O2SAT 96; BMI 47.2
[2025-10-21 12:15] VITALS: TEMP 36.8
--- NOTE | 2025-10-21 14:21 | DI.RAD.S_ITS ---
PROCEDURE: XR FINGER RT MIN 2V INDICATIONS: R index finger pain TECHNIQUE: AP hand, 2 views of the 2nd finger(s) acquired. COMPARISON: Not available FINDINGS AND IMPRESSION: No displaced fracture or dislocation. No suspicious soft tissue calcifications. If there is high concern for occult injury, consider repeat radiography in about 7 days or cross-sectional imaging. Dictated by: Willy Toscano M.D. on 10/21/2025 at 14:48 Approved by: Willy Toscano M.D. on 10/21/2025 at 14:49
[2025-10-21 14:51] VITALS: BP 140/94; PULSE 68; PULSE 79; RESP 18; O2SAT 99
--- NOTE | 2025-10-21 16:07 | ED_ITS ---
HPI - Extremity Injury (Upper) General Chief Complaint: Extremity Injury, Upper Stated Complaint: Injured R Index Finger Time Seen by Provider: 10/21/25 14:21 Source: patient Mode of arrival: Ambulatory History of Present Illness HPI narrative: This is a 30 year female presents emergency department due to right 2nd digit injury. 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 She denies any numbness. Decreases range of motion secondary to pain. No open wounds. Related Data Previous Rx's ?Medication ?Instructions ?Recorded cetirizine 10 mg tablet 10 mg PO DAILY allergic reac tion 04/13/22 #10 tabs epinephrine 0.3 mg/0.3 mL 0.3 mg (0.3 mL) IM Q5-15M HI N 04/13/22 injection, auto-injector anaphylaxis #2 ea hydroxyzine HCl 10 mg tablet 10 mg PO Q8H PRN itching #14 tabs 04/13/22 famotidine 40 mg tablet (Pepcid) 40 mg PO DAILY #60 ta bs 04/16/22 prednisone 20 mg tablet 40 mg (2 x 20 mg) PO DAILY # 6 tabs 04/16/22 medroxyprogesterone 10 mg tablet 10 mg PO DAILY #60 ta bs 12/08/22 (Provera) medroxyprogesterone 10 mg tablet See Rx Instructions . Route 12/25/22 .COMPLEX #100 tabs naproxen 500 mg tablet 500 mg PO BID #60 tabs 12/25 albuterol sulfate 90 mcg/actuation 2 puff inhalation Q 6H PRN 05/29/24 aerosol inhaler shortness of breath or wheez ing #8.5 grams albuterol sulfate 90 mcg/actuation 2 puff inhalation Q 6H PRN 05/29/24 aerosol inhaler shortness of breath or wheez ing #8.5 grams hydrocodone 5 mg-acetaminophen 325 1 tab PO Q6H PRN pa in #10 tabs 07/14/24 mg tablet Allergies Allergy/AdvReac Type Severity Reaction Status Date / Time nut - unspecified Allergy Severe Anaphylaxis Verified 07/14/24 09:54 ketorolac (From Toradol) Allergy Migraine Verified 01/21/25 12:44 Review of Systems Review of Systems Narrative: GENERAL: Denies chills, fatigue, malaise, fever, sweats. HEENT: Denies sinus pain, ear pain, sore throat, difficulty swallowing, dizziness. RESPIRATORY: Denies dyspnea, cough, wheezing, hemoptysis, sputum. CARDIOVASCULAR: Denies chest pain, palpitations, orthopnea, edema, GASTROINTESTINAL: Denies nausea, vomiting, abdominal pain, diarrhea, constipati on, melena. : Denies dysuria, frequency, incontinence, hematuria, urinary retention. MUSCULOSKELETAL: Reports right 2nd finger pain SKIN: Denies rash, skin lesions, or other NEUROLOGIC: Denies weakness, headache, numbness, change in speech, confusion, seizures, incoordination. PSYCHIATRIC: No concerning psychosocial issues. 12 point review of systems is negative except for those stated above Patient History Medical History Rectal bleeding Surgical History H/O colonoscopy (~09/21/21) Social History household members: family alcohol intake frequency: a few times a month Exam Narrative Exam Narrative: GENERAL: Well-developed patient, in mild distress. HEAD: Atraumatic. Normocephalic. EYES: Pupils equal round and reactive. Extraocular motions intact. No scleral icterus. No injection or drainage. ENT: Nose without bleeding, purulent drainage. Throat without erythema, tonsillar hypertrophy or exudate. Airway patent. NECK: Trachea midline. Non tender EXTREMITIES: Mild tenderness to palpation to the generalized right 2nd digit. Neurovascularly intact throughout. NEURO: AOx3. SKIN: No rash or erythema of visible areas Initial Vital Signs Initial Vital Signs: Vital Signs Pulse Rate 85 10/21/25 12:10 Respiratory Rate 15 10/21/25 12:10 Blood Pressure 176/87 H 10/21/25 12:10 Pulse Oximetry 96 10/21/25 12:10 Oxygen Delivery Method Room Air 10/21/25 12:10 Course Orders Ordered: ED Orders 10/21/25 14:21 XR finger RT min 2V Stat Vital Signs Vital signs: Vital Signs - 8 hr 10/21/25 12:10 10/21/25 12:15 10/21/25 14:51 Temperature 98.2 F Pulse Rate 85 Pulse Rate [Right Radial] 68 Respiratory Rate 15 Blood Pressure 176/87 H Pulse Oximetry 96 Oxygen Delivery Method Room Air 10/21/25 14:51 Temperature Pulse Rate 79 Pulse Rate [Right Radial] Respiratory Rate 18 Blood Pressure 140/94 H Pulse Oximetry 99 Oxygen Delivery Method Room Air MDM - Extremity Injury (Upper) Imaging Data Extremity x-ray #1: Radiologist's Impression: [address] [address] XRay Report Signed Patient: Jennifer Booker MR#: [id number] : 1995 Acct:[id number] Age/Sex: 30 / F Date of Service: 10/21/25 Loc: ED Accession Number: [id number] Procedure: XR finger RT min 2V Ordering Provider: Raudel Valladares PA-C PROCEDURE: XR FINGER RT MIN 2V INDICATIONS: R index finger pain TECHNIQUE: AP hand, 2 views of the 2nd finger(s) acquired. COMPARISON: Not available FINDINGS AND IMPRESSION: No displaced fracture or dislocation. No suspicious soft tissue calcifications. If there is high concern for occult injury, consider repeat radiography in about 7 days or cross-sectional imaging. Dictated by: Willy Toscano M.D. on 10/21/2025 at 14:48 Approved by: iWlly Toscano M.D. on 10/21/2025 at 14:49 [facility] Narrative Medical decision making narrative: ED course: 30-year-old female presenting to the emergency department due to a right 2nd digit contusion. X-rays negative for fracture. Recommended supportive care. CC: Right 2nd digit pain Complicating co-morbidities: No Data collected from: Previous notes Medical records reviewed: Patient was last seen in this emergency department no months ago due to head injury. History of migraines. No other pertinent medical history. Differential considered, but not limited to: Fracture, neurovascular injury, contusion Exam documented above, pertinent findings include: Tender to palpation, no changes in range of motion Lab Test results independently reviewed as above. Pertinent findings: None noted Imaging studies independently reviewed: X-ray shows no fracture Scores Used: None MIPS Elements: None Consultations: None Treatments: None Re-evaluations: None Discussion: Discussed plan with the patient was comfortable with the plan Diagnosis: Finger contusion Disposition: see below, along with detailed discharge instructions that have been reviewed with patient as well as indications for ED re-evaluation and additional outpatient follow up Discharge Plan Departure Patient Disposition: Home Clinical Impression: Contusion of finger Qualifiers: Encounter type: initial encounter Finger: unspecified finger Damage to nail status: without damage Laterality: unspecified laterality Qualified Code(s): S60.00XA - Contusion of unspecified finger without damage to nail, initial encounter Activity Restrictions/Additional Instructions: Thank you for coming to the [facility] Emergency Department today. X-ray shows no fracture. Please treat this with ice, ibuprofen, and time and rest. Please return to the emergency department if you develop any numbness, significant new or worsening pain, or any other concerning signs or symptoms. I hope you feel better soon. Please follow up with your primary care provider within a week if your symptoms continue. If you do not have a primary care provider please contact the [facility] Resource line at [phone]. They will ask some questions about your medical history and help you get set up with a provider in the community. Prescriptions: No Action prednisone 20 mg Tablet 40 mg PO DAILY Qty: 6 0RF famotidine [Pepcid] 40 mg tablet 40 mg PO DAILY Qty: 60 0RF medroxyprogesterone [Provera] 10 mg tablet 10 mg PO DAILY Qty: 60 0RF Rx Instructions: 2 tabs q4hrs x 48 hr. 2 tab q6hr x 48hr. 2 tab q8hr x 48hr. 2 tab q12hr x 48hr. 2 tab qd x 7 days medroxyprogesterone 10 mg tablet See Rx Instructions .ROUTE .COMPLEX Qty: 100 0RF Rx Instructions: 2 tabs q4hrs x 48 hr. 2 tab q6hr x 48hr. 2 tab q8hr x 48hr. 2 tab q12hr x 48hr. 2 tab qd x 7 days, then continue 1 daily for 2 more weeks naproxen 500 mg tablet 500 mg PO BID Qty: 60 1RF hydrocodone-acetaminophen 5-325 mg tablet 1 tab PO Q6H PRN (Reason: pain) Qty: 10 0RF cetirizine 10 mg tablet 10 mg PO DAILY Qty: 10 0RF epinephrine 0.3 mg/0.3 mL auto-injector 0.3 mg IM Q5-15M PRN (Reason: anaphylaxis) Qty: 2 0RF Rx Instructions: do not exceed 3 doses per episode hydroxyzine HCl 10 mg tablet 10 mg PO Q8H PRN (Reason: itching) Qty: 14 0RF albuterol sulfate 90 mcg/actuation HFA aerosol inhaler 2 puff inhalation Q6H PRN (Reason: shortness of breath or wheezing) Qty: 8.5 0RF albuterol sulfate 90 mcg/actuation HFA aerosol inhaler 2 puff inhalation Q6H PRN (Reason: shortness of breath or wheezing) Qty: 8.5 0RF Stand Alone Forms: Patient Portal/API, Work Release Note
[2025-10-21 16:33] VITALS: BP 132/69; PULSE 70; RESP 18; O2SAT 97
== END 2025-10-21 16:34 | disposition home or self-care (01) ==
PROVIDERS: Emergency Provider Physician Assistant Medical
DX: S60.021A Contusion of right index finger without damage to nail, initial encounter (principal); W23.0XXA Caught, crushed, jammed, or pinched between moving objects, initial encounter; Y99.0 Civilian activity done for income or pay
CPT/HCPCS: 73140; 99281; 99283